=== PATIENT | male | born 1975 | race African-American/Black ===

== ENCOUNTER 2018-06-17 22:33 | Inpatient (IN) ==
[2018-06-17] MEDS ORDERED: Sod Chloride 0.9% Inj 1,000 ML IV.SIG SCH (23:30)
[2018-06-17] MEDS ORDERED: ceFAZolin 2 GM IV; once IV.SIG PRN (23:39)
--- NOTE | 2018-06-18 00:33 | P.HPIM ---
[facility]: Daniel Varner Chief Complaint: Here for kidney transplant History of Present Illness: Mr. Galvan is a pleasant 43 y/o male with a history of anemia, ESRD on peritoneal dialysis, Hepatitis C (treated), hyperlipidemia, and hypertension who presented to the hospital for renal transplantation. He was admitted under the hospitalist service for medical management prior to surgery. The patient is seen in his hospital room and denies any fevers, chills, shortness of breath , nausea, vomiting, diarrhea, or peripheral edema. The patient reports requiring peritoneal dialysis for 4 years. Inpatient Certification: I certify that the inpatient services were ordered in accordance with Medicare regulations governing the order. This includes certification that hospital inpatient services are reasonable and necessary and in the case of services not specified as inpatient-only under 42 CFR 419.22(n), that they are appropriately provided as inpatient services in accordance to with the 2-midnight benchmark under 43 CFR 412.3(e) Estimated Total Length of Stay (Days): 5 Plans for Post Hospital Care: Home Review of Systems All other systems reviewed negative except as stated in HPI PMFSH - History History Provided By: Patient - Medical History Medical History: Medical History (Last Updated 06/18/18 @ 01:01 by MARGRET Thomas) Dialysis patient High cholesterol History of hyperparathyroidism History of nephrectomy, unilateral Hypertension Anemia ESRD (end stage renal disease) on dialysis Hepatitis C - Surgical History Surgical History: Surgical History (Last Updated 06/18/18 @ 01:02 by MARGRET Thomas) History of nephrectomy, unilateral - Family History Family History: Family History (Last Reviewed 06/18/18 @ 01:02 by MARGRET Thomas) Mother Family history of diabetes mellitus Family history of hypertension Father Lung cancer Family history of diabetes mellitus Family history of hypertension CAD (coronary artery disease) Aunt Family history of diabetes mellitus - Social History I have reviewed the patient's Social History: Yes - Tobacco History Second Hand Smoke Exposure: No Smoking Status: Former smoker Packs Per Day: 1 (Quit 6 or 7 years ago) Years Smoked: 6 Smoking End Date: quit 5 years ago - Alcohol History How Often Do You Have a Drink Containing Alcohol: Monthly or less (rare) - Substance Use History Substance History: Past History (used marijuana in past. Quit about 5-6 years ago.) Medications and Allergies Active Medications: Active Medications Sodium Chloride (Ns Inj) 1,000 mls @ 40 mls/hr IV.SIG .Q24H JOSE L Cefuroxime Sodium 1,500 mg/ (Sodium Chloride) 100 mls @ 200 mls/hr IV.SIG GAUNTLET PAIRER PRN PRN Reason: WITHIN 60 MIN OF INCISION Stop: 06/18/18 23:36 Cefazolin Sodium/Dextrose (Ancef 2 Gm Premix Inj) 2 gm in 50 mls @ 100 mls/hr IV.SIG GAUNTLET PAIRER PRN PRN Reason: WITHIN 60 MIN OF INCISION Mycophenolate Mofetil (Cellcept) 1,000 mg PO UNSCH X1 JOSE L Stop: 06/18/18 03:00 Allergies Allergy/AdvReac Type Severity Reaction Status Date / Time No Known Allergies Allergy Unverified 05/28/18 13:35 Home Medications Medication Instructions Recorded Confirmed Type B complex-vitamin C-folic acid 1 tab PO DAILY 05/28/18 06/17/18 History [Dialyvite] amlodipine 10 mg PO DAILY 05/28/18 06/17/18 History cinacalcet [Sensipar] 120 mg PO DAILY 05/28/18 06/17/18 History labetalol 200 mg PO BID 05/28/18 06/17/18 History rosuvastatin [Crestor] 10 mg PO DAILY 05/28/18 06/17/18 History calcitriol 0.5 mcg PO DAILY 06/17/18 06/18/18 History Exam Vital signs: Vital Signs 06/17/18 23:44 Pulse Rate 79 Respiratory Rate 17 Blood Pressure 138/94 H Pulse Oximetry 100 Intake & Output 06/17/18 06/17/18 06/18/18 06:59 18:59 06:59 Weight 75.7 kg Other: Weight On Admission 75.7 kg Narrative: GENERAL: This is a well-nourished, well-developed patient, in no apparent distress. SKIN: No rashes, ecchymoses or lesions. Cool and dry. HEAD: Atraumatic. Normocephalic. EYES: No scleral icterus. No injection or drainage. ENT: Nose without bleeding, purulent drainage. NECK: Trachea midline. No JVD. CARDIOVASCULAR: Regular rate and rhythm without murmurs, gallops, or rubs. RESPIRATORY: Clear to auscultation. Breath sounds equal bilaterally. No wheezes , rales, or rhonchi. GASTROINTESTINAL: Abdomen soft, non-tender, nondistended. No guarding. Umbilical hernia reducible. Left lower quad PD catheter noted. MUSCULOSKELETAL: Extremities without clubbing, cyanosis, or edema. No calf tenderness. NEUROLOGICAL: Awake and alert. Motor and sensory grossly within normal limits. Normal speech. . Results - Labs CBC & Chem 7: 06/18/18 00:25 06/18/18 00:25 Caprini VTE Risk Assessment Caprini VTE Risk Assessment: Moderate/High Risk (score >= 2) Caprini Risk Assessment Model: Point Value = 1 Point Value = 2 Point Value = 3 Point Value = 5 Age 41-60 Minor surgery BMI > 25 kg/m2 Swollen legs Varicose veins or History of unexplained or recurrent spontaneous Oral contraceptives or hormone replacement Sepsis (< 1 month) Serious lung disease, including pneumonia (< 1 month) Abnormal pulmonary function Acute myocardial infarction Congestive heart failure (< 1 month) History of inflammatory bowel disease Medical patient at bed rest Age 61-74 Arthroscopic surgery Major open surgery (> 45 min) Laparoscopic surgery (> 45 min) Malignancy Confined to bed (> 72 hours) Immobilizing plaster cast Central venous access Age >= 75 History of VTE Family history of VTE Factor V Leiden Prothrombin [id number] Lupus anticoagulant Anticardiolipin antibodies Elevated serum homocysteine Heparin-induced thrombocytopenia Other congenital or acquired thrombophilia Stroke (< 1 month) Elective arthroplasty Hip, pelvis, or leg fracture Acute spinal cord injury (< 1 month) Prophylaxis Regimen: Total Risk Factor Score Risk Level Prophylaxis Regimen 0-1 Low Early ambulation 2 Moderate Order ONE of the following: *Sequential Compression Device (SCD) *Heparin 5000 units SQ BID 3-4 Higher Order ONE of the following medications: *Heparin 5000 units SQ TID *Enoxaparin/Lovenox 40 mg SQ daily (WT < 150 kg, CrCl > 30 mL/min) *Enoxaparin/Lovenox 30 mg SQ daily (WT < 150 kg, CrCl > 10-29 mL/min) *Enoxaparin/Lovenox 30 mg SQ BID (WT < 150 kg, CrCl > 30 mL/min) AND/OR *Sequential Compression Device (SCD) 5 or more Highest Order ONE of the following medications: *Heparin 5000 units SQ TID (Preferred with Epidurals) *Enoxaparin/Lovenox 40 mg SQ daily (WT < 150 kg, CrCl > 30 mL/min) *Enoxaparin/Lovenox 30 mg SQ daily (WT < 150 kg, CrCl > 10-29 mL/min) *Enoxaparin/Lovenox 30 mg SQ BID (WT < 150 kg, CrCl > 30 mL/min) AND *Sequential Compression Device (SCD) Assessment and Plan - Plan Mr. Galvan is a pleasant 43 y/o male with a history of anemia, ESRD on peritoneal dialysis, Hepatitis C (treated), hyperlipidemia, and hypertension who presented to the hospital for renal transplantation. He was admitted under the hospitalist service for medical management prior to surgery. ESRD here for renal transplant -Consult nephrology - Dr. Gan -Consult renal transplant team - Dr. Kumar -N.p.o. -Preop antibiotics Hypertension -Restart home amlodipine -Monitor trends in blood pressure and adjust treatment as indicated Hyperlipidemia -Resume home atorvastatin Anemia -monitor CBC DVT prophylaxis -SCDs Discussed Condition With: Dr Ruelas, patient, and RN
[2018-06-18 00:45] LABS: Baso % (Auto) 0.6 % (0.0-2.0); Eos # (Auto) 0.1 th/mm3 (0.0-0.4); Eos % (Auto) 2.1 % (0.0-4.0); Hematocrit 28.3 % (39.0-51.0); Hemoglobin 9.9 gm/dL (13.0-17.0); Lymph # (Auto) 2.6 th/mm3 (1.0-4.8); Mean Corpuscular HGB Conc 34.9 % (32.0-36.0); Mean Corpuscular Hemoglobin 31.1 pg (27.0-34.0); Mean Corpuscular Volume 89.1 fL (80.0-100.0); Mean Platelet Volume 8.2 fL (7.0-11.0); Mono # (Auto) 0.7 th/mm3 (0.0-0.9); Mono % (Auto) 9.5 % (0.0-8.0); Neut # (Auto) 3.5 th/mm3 (1.8-7.7); Neut % (Auto) 50.8 % (16.0-70.0); Platelet Count 229 th/mm3 (150-450); Red Blood Count 3.18 mil/mm3 (4.50-5.90); Red Cell Distribution Width 16.2 % (11.6-17.2); White Blood Count 6.9 th/mm3 (4.0-11.0)
[2018-06-18 00:57] LABS: Activated Partial Thrombo Time 25.1 sec (24.3-30.1); Prothrombin Time 10.3 sec (9.8-11.6)
[2018-06-18 01:05] LABS: Alanine Aminotransferase 25 U/L (12-78); Albumin 3.4 g/dL (3.4-5.0); Anion Gap 12 meq/L (5-15); Aspartate Aminotransferase 23 U/L (15-37); Blood Urea Nitrogen 51 mg/dL (7-18); Calcium 8.6 mg/dL (8.5-10.1); Carbon Dioxide 30.2 meq/L (21.0-32.0); Chloride 97 meq/L (98-107); Glucose,Random 84 mg/dL (74-106); Potassium 3.8 meq/L (3.5-5.1); Sodium 139 meq/L (136-145)
[2018-06-18 01:12] LABS: Alkaline Phosphatase 52 U/L (45-117); Glomerular Filtration Rate 3 mL/min (>89); Total Protein 6.5 g/dL (6.4-8.2)
--- NOTE | 2018-06-18 01:21 | XR ---
EXAM DATE: 06/18/2018 1:02 AM EDT AGE/SEX: 43 years / Male INDICATIONS: Evaluate for pneumonia, pneumothorax, or communicable disease. Pre-op Kidney transplant . CLINICAL DATA: This is the patient's initial encounter. Patient reports that signs and symptoms have been present for 1 day and indicates a pain score of 0/10. MEDICAL/SURGICAL HISTORY: None. None. COMPARISON: No prior exams available for comparison. FINDINGS: PA and lateral views of the chest demonstrate the lungs to be symmetrically aerated without evidence of mass, infiltrate or effusion. The cardiomediastinal contours are unremarkable. Osseous structures are intact. CONCLUSION: No evidence of acute cardiopulmonary disease. Electronically signed by: Jung Fletcher MD 06/18/2018 1:20 AM EDT
[2018-06-18] MEDS ORDERED: ANTITHYMOCYTE IG IV.SIG ONE ×2 (08:59→12:00)
[2018-06-18] MEDS ORDERED: SODIUM CHLOR 0.9% IV.SIG ONE ×2 (08:59→12:00)
[2018-06-18] MEDS ORDERED: MethylPREDNISolone Sod Succinate Inj 125 MG/2 ML Vial IV.PUSH ONE ×2 (08:59→12:00)
[2018-06-18] MEDS ORDERED: Hydrocortisone Sod Succinate 100 MG Vial IV.PUSH PRN ×2 (08:59→09:10)
--- NOTE | 2018-06-18 09:32 | P.CONTS ---
History of Present Illness Service: Transplant Surgery Consult date: 06/18/18 Reason for Consult: patient admitted for potential donor kidney transplant Primary Care Provider: Daniel Varner Chief Complaint: Here for possible kidney transplant History of Present Illness: Mr Quinton Galvan is a 43 yo black male with the primary diagnosis of htn. s/p right nephrectomy for renal cell cancer. Patient of Dr Christianson. who completed a kidney transplant evaluation and was approved by our Kidney Listing Committee. A possible kidney donor has been found for him. Mr Galvan, does PD required dialysis support since 07/27/13 last dialysis was . And the time of admission, patient makes {no urine for the last 2 years. In the recent days he denies any fevers, recent hospitalizations, and any significant change in his health since he was last seen in our [facility]. Review of Systems Constitutional: Denies anorexia, Denies body ache(s), Denies chills, Denies daytime sleepiness, Denies excessive sweating, Denies fatigue, Denies fever(s), Denies headache(s), Denies increased appetite, Denies lack of energy, Denies malaise, Denies night sweats, Denies weakness, Denies weight gain, Denies weight loss, Denies other Eyes: Denies blind spots, Denies blurry vision, Denies bulging eyes, Denies change in vision, Denies double vision, Denies discharge, Denies dry eyes, Denies floaters, Denies irritation, Denies itchy eyes, Denies loss of vision, Denies pain, Denies requires corrective lenses, Denies sensitivity to light, Denies other Ears, Nose, Mouth, and Throat: Denies abnormal hearing, Denies bleeding gums, Denies bad breath, Denies change in voice, Denies dental pain, Denies difficulty swallowing, Denies dizziness, Denies dry mouth, Denies ear discharge , Denies ear pain, Denies facial pain, Denies headache(s), Denies hearing loss, Denies hoarseness, Denies lip swelling, Denies nosebleed, Denies mouth lesions, Denies mouth pain, Denies nasal congestion, Denies nasal discharge, Denies nasal obstruction, Denies nasal trauma, Denies neck lump, Denies neck pain, Denies nose pain, Denies pain with swallowing, Denies poor balance, Denies post nasal drip, Denies ringing in the ears, Denies sinus pain, Denies sinus pressure , Denies sore throat, Denies throat swelling, Denies tongue swelling, Denies other Cardiovascular: Denies chest pain, Denies chest pain at rest, Denies chest pain with activity, Denies excessive sweating, Denies fainting, Denies fast heart rate, Denies foot swelling, Denies generalized swelling, Denies irregular heart rhythm, Denies leg pain with activity, Denies leg sores, Denies leg swelling, Denies lightheadedness, Denies radiating jaw, neck or arm pain, Denies rapid, pounding, or irregular heartbeat, Denies shortness of breath, Denies shortness of breath with activity, Denies shortness of breath when lying down, Denies shortness of breath causing sudden awakening, Denies slow heart rate, Denies other Respiratory: Denies change in phlegm color, Denies chest congestion, Denies cough, Denies coughing up blood, Denies excessive phlegm production, Denies pain on inspiration, Denies pain with cough, Denies shortness of breath, Denies shortness of breath with activity, Denies snoring, Denies stridor, Denies wheezing, Denies other Gastrointestinal: Denies abdominal pain, Denies belching, Denies black, tarry stools, Denies bloating, Denies bright, red blood in stools, Denies change in bowel habits, Denies constant urge to pass stool, Denies change in stools, Denies coffee ground vomit, Denies constipation, Denies cramping, Denies difficulty swallowing, Denies excessive passing of gas, Denies feeling full early, Denies heartburn, Denies incontinent of stools, Denies loose stools, Denies nausea, Denies pain with swallowing, Denies vomiting, Denies vomiting blood, Denies other Genitourinary: Denies blood in semen, Denies blood in urine, Denies decreased urination, Denies difficulty urinating, Denies difficulty with ejaculations, Denies erectile dysfunction, Denies genital lesions, Denies genital pain, Denies painful urination, Denies side pain, Denies frequent nighttime urination , Denies painful ejaculations, Denies penile discharge, Denies scrotal swelling , Denies testicle lump, Denies testicle pain, Denies urinary frequency, Denies urinary hesitancy, Denies urinary incontinence, Denies urinary urgency, Denies other Musculoskeletal: Denies abnormal walking, Denies back pain, Denies body aches, Denies decreased muscle mass, Denies deformity, Denies joint pain, Denies joint swelling, Denies limited joint movement, Denies loss of height, Denies muscle cramps, Denies muscle weakness, Denies neck pain, Denies numbness, Denies radiating pain into limb, Denies stiffness, Denies tingling, Denies other Skin/Breast: Denies acne, Denies bleeding lesions, Denies boil, Denies breast swelling, Denies breast skin changes, Denies breast pain, Denies breast lump, Denies change in breast shape, Denies change in hair, Denies change in skin color, Denies changing lesions, Denies dry skin, Denies excessive hair growth, Denies hair loss, Denies itching, Denies lesions, Denies nail changes, Denies new lesions, Denies nipple discharge, Denies non-healing lesions, Denies redness , Denies sensitivity to light, Denies rash, Denies skin pain, Denies skin ulcer , Denies sores, Denies stretch gillette, Denies unusual bruising, Denies wounds, Denies yellowing of the skin, Denies other Neurologic: Denies abnormal hearing, Denies abnormal movements, Denies abnormal speech, Denies abnormal walking, Denies behavioral changes, Denies burning sensations, Denies confusion, Denies dizziness, Denies fainting, Denies frequent falls, Denies headache(s), Denies lack of coordination, Denies localized weakness, Denies loss of vision, Denies memory loss, Denies numbness, Denies other visual disturbances, Denies radiating pain, Denies restless legs, Denies convulsions, Denies seizure-like activity, Denies sensory deficit, Denies tingling, Denies tingling/numbness/burning sensations, Denies tremor(s), Denies unsteadiness, Denies weakness, Denies other Psychiatric: Denies abnormal sleep pattern, Denies anxiety, Denies behavioral changes, Denies change in appetite, Denies change in sex drive, Denies confusion , Denies depression, Denies difficulty concentrating, Denies hearing things others do not hear, Denies hopelessness, Denies irritability, Denies lack of enjoyment, Denies memory loss, Denies mood swings, Denies panic attacks, Denies paranoia, Denies seeing things others do not see, Denies sensing things others do not sense, Denies tactile hallucinations, Denies thoughts of hurting/killing others, Denies thoughts of hurting/killing yourself, Denies other Endocrine: Denies cold intolerance, Denies excessive sweating, Denies flushing, Denies heat intolerance, Denies increased hunger, Denies increased thirst, Denies increased urination, Denies rapid, pounding, or irregular heartbeat, Denies other Hematologic/Lymphatic: Denies easy bleeding, Denies easy bruising, Denies enlarged lymph nodes, Denies other Allergic/Immunologic: Denies GI upset with certain foods, Denies hives, Denies itchy eyes, Denies lip swelling, Denies seasonal runny nose, Denies throat swelling, Denies tongue swelling, Denies wheezing, Denies other PMFSH - History History Provided By: Patient - Medical History Medical History: Medical History (Last Reviewed 06/18/18 @ 09:22 by Vincent Kumar MD) Dialysis patient High cholesterol History of hyperparathyroidism Hypertension Anemia ESRD (end stage renal disease) on dialysis Hepatitis C - Surgical History Surgical History: Surgical History (Last Reviewed 06/18/18 @ 09:22 by Vincent Kumar MD) History of nephrectomy, unilateral - Family History Family History: Family History (Last Reviewed 06/18/18 @ 09:22 by Vincent Kumar MD) Mother Family history of diabetes mellitus Family history of hypertension Father Lung cancer Family history of diabetes mellitus Family history of hypertension CAD (coronary artery disease) Aunt Family history of diabetes mellitus - Tobacco History Second Hand Smoke Exposure: No Smoking Status: Former smoker Packs Per Day: 1 (Quit 6 or 7 years ago) Years Smoked: 6 Smoking End Date: quit 5 years ago - Alcohol History How Often Do You Have a Drink Containing Alcohol: Monthly or less (rare) - Substance Use History Substance History: Past History (used marijuana in past. Quit about 5-6 years ago.) - Travel History History of Recent Travel: No Recent Travel in the [place] Within the Last 8 Weeks: No Recent Travel Out of the Country Within the Last 8 Weeks: No Medications and Allergies Active Medications: Active Medications Amlodipine Besylate (Norvasc) 10 mg PO DAILY [facility] Atorvastatin Calcium (Lipitor) 20 mg PO DAILY JOSE L Calcitriol (Rocaltrol) 0.5 mcg PO DAILY JOSE L Cinacalcet (Sensipar) 120 mg PO DAILY JOSE L Diphenhydramine HCl (Benadryl Inj) 50 mg IV.PUSH ONCE PRN PRN Reason: anaphylactic reaction Epinephrine HCl (Epinephrine (1:1000) Inj) 0.1 mg IV.PUSH ONCE PRN PRN Reason: SEE LABEL COMMENTS Hydrocortisone Sodium Succinate (Solucortef Inj) 200 mg IV.PUSH ONCE PRN PRN Reason: anaphylactic readtion Sodium Chloride (Ns Inj) 1,000 mls @ 40 mls/hr IV.SIG .Q24H JOSE L Cefazolin Sodium/Dextrose (Ancef 2 Gm Premix Inj) 2 gm in 50 mls @ 100 mls/hr IV.SIG MANGLE TENDER CLOTH PRN PRN Reason: WITHIN 60 MIN OF INCISION Lymphocyte Immune Globulin 114 (mg/ Sodium Chloride) 500 mls @ 83.333 mls/hr IV.SIG ONCE ONE Stop: 06/18/18 17:59 Labetalol HCl (Trandate) 200 mg PO BID JOSE L Methylprednisolone Sodium Succinate (Solumedrol Inj) 500 mg IV.PUSH ONCE ONE Stop: 06/18/18 12:01 Vitamin B Complex/Vit C/Folic Acid (Nephrocaps) 1 tab PO DAILY [facility] Allergies Allergy/AdvReac Type Severity Reaction Status Date / Time No Known Allergies Allergy Unverified 05/28/18 13:35 Home Medications Medication Instructions Recorded Confirmed Type B complex-vitamin C-folic acid 1 tab PO DAILY 05/28/18 06/17/18 History [Dialyvite] amlodipine 10 mg PO DAILY 05/28/18 06/17/18 History cinacalcet [Sensipar] 120 mg PO DAILY 05/28/18 06/17/18 History labetalol 200 mg PO BID 05/28/18 06/17/18 History rosuvastatin [Crestor] 10 mg PO DAILY 05/28/18 06/17/18 History calcitriol 0.5 mcg PO DAILY 06/17/18 06/18/18 History Physical Exam Vital signs: Vital Signs 06/17/18 23:44 06/18/18 02:00 06/18/18 04:00 Temperature Pulse Rate 79 77 75 Respiratory Rate 17 Blood Pressure 138/94 H Pulse Oximetry 100 06/18/18 08:00 Temperature 98 F Pulse Rate 77 Respiratory Rate 18 Blood Pressure 113/92 H Pulse Oximetry 100 Intake & Output 06/17/18 06/18/18 06/18/18 18:59 06:59 18:59 Weight 75.7 kg Other: Weight On Admission 75.7 kg - Constitutional no acute distress - Routine HEENT Exam Head: Present: normocephalic, atraumatic Eye: Present: EOMI ENT: Present: mucous membranes moist - Routine Neck Exam Present: supple - Routine Respiratory Exam Present: CTA bilaterally - Routine Cardiovascular Exam Present: RRR, S1, S2 - Routine Abdominal Exam Present: soft, normoactive bowel sounds Comments: LLQ PD cath in place. Approx 1.5 x [address] in place. - Routine Extremities Exam Present: pulses intact - Routine Skin Exam Present: intact - Routine Neurological Exam Present: alert, oriented X3 - Detailed Neurological Exam: Coma Scale Verbal Response: Oriented - Routine Psychiatric Exam Present: normal affect, normal thought process Assessment and Plan - Assessment (1) End stage renal disease Code(s): N18.6 - End stage renal disease Status: Acute (2) Hypertension Code(s): I10 - Essential (primary) hypertension Status: Acute - Plan Mr Quinton Galvan has ESRD secondary to htn and is being admitted for possible kidney transplantation. The patient will be consented for procedure and transfusion A PHS increased Risk Consent is not required. The patient is being admitted to the Hospitalists Service. The Transplant Nephrology Service will be consulted. The patient will be assigned to Case Management/Inpatient Status.
[2018-06-18] MEDS ORDERED: Heparin 10,000 UNITS/10 ML Vial (for IV use) ONE (10:00)
[2018-06-18] MEDS ORDERED: Cisatracurium Inj 20 MG/10 ML Vial ONE (10:17)
[2018-06-18] MEDS ORDERED: MethylPREDNISolone Sod Succinate Inj 125 MG/2 ML Vial ONE (10:59)
--- NOTE | 2018-06-18 11:10 | P.CONNP ---
History of Present Illness Service: Nephrology Consult date: 06/18/18 Requesting Physician: Vincent Kumar Reason for Consult: End-stage renal disease Primary Care Provider: Daniel Varner Chief Complaint: Here for possible kidney transplant History of Present Illness: Patient is a 43-year-old -Togolese male with history of end-stage renal disease on peritoneal dialysis who has been placed on the waiting list for kidney transplant, patient is doing peritoneal dialysis and has done peritoneal dialysis on 06/16/2018, he was calling last night and came here for kidney transplant of, patient does not make any urine has been anuric for 2 years, he does not have any recent hospitalizations or infections. Review of Systems Constitutional: Denies anorexia, Denies body ache(s), Denies chills, Denies daytime sleepiness, Denies excessive sweating, Denies fatigue, Denies fever(s), Denies headache(s), Denies increased appetite, Denies lack of energy, Denies malaise, Denies night sweats, Denies weakness, Denies weight gain, Denies weight loss, Denies other Eyes: Denies blind spots, Denies blurry vision, Denies bulging eyes, Denies change in vision, Denies double vision, Denies discharge, Denies dry eyes, Denies floaters, Denies irritation, Denies itchy eyes, Denies loss of vision, Denies pain, Denies requires corrective lenses, Denies sensitivity to light, Denies other Ears, Nose, Mouth, and Throat: Denies abnormal hearing, Denies bleeding gums, Denies bad breath, Denies change in voice, Denies dental pain, Denies difficulty swallowing, Denies dizziness, Denies dry mouth, Denies ear discharge , Denies ear pain, Denies facial pain, Denies headache(s), Denies hearing loss, Denies hoarseness, Denies lip swelling, Denies nosebleed, Denies mouth lesions, Denies mouth pain, Denies nasal congestion, Denies nasal discharge, Denies nasal obstruction, Denies nasal trauma, Denies neck lump, Denies neck pain, Denies nose pain, Denies pain with swallowing, Denies poor balance, Denies post nasal drip, Denies ringing in the ears, Denies sinus pain, Denies sinus pressure , Denies sore throat, Denies throat swelling, Denies tongue swelling, Denies other Cardiovascular: Denies chest pain, Denies chest pain at rest, Denies chest pain with activity, Denies excessive sweating, Denies fainting, Denies fast heart rate, Denies foot swelling, Denies generalized swelling, Denies irregular heart rhythm, Denies leg pain with activity, Denies leg sores, Denies leg swelling, Denies lightheadedness, Denies radiating jaw, neck or arm pain, Denies rapid, pounding, or irregular heartbeat, Denies shortness of breath, Denies shortness of breath with activity, Denies shortness of breath when lying down, Denies shortness of breath causing sudden awakening, Denies slow heart rate, Denies other Respiratory: Denies change in phlegm color, Denies chest congestion, Denies cough, Denies coughing up blood, Denies excessive phlegm production, Denies pain on inspiration, Denies pain with cough, Denies shortness of breath, Denies shortness of breath with activity, Denies snoring, Denies stridor, Denies wheezing, Denies other Gastrointestinal: Denies abdominal pain, Denies belching, Denies black, tarry stools, Denies bloating, Denies bright, red blood in stools, Denies change in bowel habits, Denies constant urge to pass stool, Denies change in stools, Denies coffee ground vomit, Denies constipation, Denies cramping, Denies difficulty swallowing, Denies excessive passing of gas, Denies feeling full early, Denies heartburn, Denies incontinent of stools, Denies loose stools, Denies nausea, Denies pain with swallowing, Denies vomiting, Denies vomiting blood, Denies other Genitourinary: Reports other (Anuric), Denies blood in semen, Denies blood in urine, Denies decreased urination, Denies difficulty urinating, Denies difficulty with ejaculations, Denies erectile dysfunction, Denies genital lesions, Denies genital pain, Denies painful urination, Denies side pain, Denies frequent nighttime urination, Denies painful ejaculations, Denies penile discharge, Denies scrotal swelling, Denies testicle lump, Denies testicle pain, Denies urinary frequency, Denies urinary hesitancy, Denies urinary incontinence , Denies urinary urgency Musculoskeletal: Denies abnormal walking, Denies back pain, Denies body aches, Denies decreased muscle mass, Denies deformity, Denies joint pain, Denies joint swelling, Denies limited joint movement, Denies loss of height, Denies muscle cramps, Denies muscle weakness, Denies neck pain, Denies numbness, Denies radiating pain into limb, Denies stiffness, Denies tingling, Denies other Skin/Breast: Denies acne, Denies bleeding lesions, Denies boil, Denies breast swelling, Denies breast skin changes, Denies breast pain, Denies breast lump, Denies change in breast shape, Denies change in hair, Denies change in skin color, Denies changing lesions, Denies dry skin, Denies excessive hair growth, Denies hair loss, Denies itching, Denies lesions, Denies nail changes, Denies new lesions, Denies nipple discharge, Denies non-healing lesions, Denies redness , Denies sensitivity to light, Denies rash, Denies skin pain, Denies skin ulcer , Denies sores, Denies stretch gillette, Denies unusual bruising, Denies wounds, Denies yellowing of the skin, Denies other PMFSH - History History Provided By: Patient - Medical History Medical History: Medical History (Last Reviewed 06/18/18 @ 11:08 by Richmond Gan MD) Dialysis patient High cholesterol History of hyperparathyroidism Hypertension Anemia ESRD (end stage renal disease) on dialysis Hepatitis C - Surgical History Surgical History: Surgical History (Last Reviewed 06/18/18 @ 11:08 by Richmond Gan MD) History of nephrectomy, unilateral - Family History Family History: Family History (Last Reviewed 06/18/18 @ 11:08 by Richmond Gan MD) Mother Family history of diabetes mellitus Family history of hypertension Father Lung cancer Family history of diabetes mellitus Family history of hypertension CAD (coronary artery disease) Aunt Family history of diabetes mellitus - Social History I have reviewed the patient's Social History: Yes - Tobacco History Second Hand Smoke Exposure: No Smoking Status: Former smoker Packs Per Day: 1 (Quit 6 or 7 years ago) Years Smoked: 6 Smoking End Date: quit 5 years ago - Alcohol History How Often Do You Have a Drink Containing Alcohol: Monthly or less (rare) - Substance Use History Substance History: Past History (used marijuana in past. Quit about 5-6 years ago.) - Travel History History of Recent Travel: No Recent Travel in the [place] Within the Last 8 Weeks: No Recent Travel Out of the Country Within the Last 8 Weeks: No Medications and Allergies Active Medications: Active Medications Amlodipine Besylate (Norvasc) 10 mg PO DAILY [facility] Atorvastatin Calcium (Lipitor) 20 mg PO DAILY [facility] Calcitriol (Rocaltrol) 0.5 mcg PO DAILY [facility] Cinacalcet (Sensipar) 120 mg PO DAILY [facility] Diphenhydramine HCl (Benadryl Inj) 50 mg IV.PUSH ONCE PRN PRN Reason: anaphylactic reaction Epinephrine HCl (Epinephrine (1:1000) Inj) 0.1 mg IV.PUSH ONCE PRN PRN Reason: SEE LABEL COMMENTS Hydrocortisone Sodium Succinate (Solucortef Inj) 200 mg IV.PUSH ONCE PRN PRN Reason: anaphylactic reaction Sodium Chloride (Ns Inj) 1,000 mls @ 40 mls/hr IV.SIG .Q24H [facility] Cefazolin Sodium/Dextrose (Ancef 2 Gm Premix Inj) 2 gm in 50 mls @ 100 mls/hr IV.SIG [employer] PRN PRN Reason: WITHIN 60 MIN OF INCISION Stop: 06/21/18 23:38 Lymphocyte Immune Globulin 114 (mg/ Sodium Chloride) 500 mls @ 83.333 mls/hr IV.SIG ONCE ONE Stop: 06/18/18 17:59 Methylprednisolone Sodium Succinate 500 mg/ Sodium Chloride 108 mls @ 100 mls/ hr IV.SIG ONCE ONE Stop: 06/18/18 13:04 Labetalol HCl (Trandate) 200 mg PO BID [facility] Vitamin B Complex/Vit C/Folic Acid (Nephrocaps) 1 tab PO DAILY [facility] Allergies Allergy/AdvReac Type Severity Reaction Status Date / Time No Known Allergies Allergy Unverified 05/28/18 13:35 Home Medications Medication Instructions Recorded Confirmed Type B complex-vitamin C-folic acid 1 tab PO DAILY 05/28/18 06/17/18 History [Dialyvite] amlodipine 10 mg PO DAILY 05/28/18 06/17/18 History cinacalcet [Sensipar] 120 mg PO DAILY 05/28/18 06/17/18 History labetalol 200 mg PO BID 05/28/18 06/17/18 History rosuvastatin [Crestor] 10 mg PO DAILY 05/28/18 06/17/18 History calcitriol 0.5 mcg PO DAILY 06/17/18 06/18/18 History Exam Vital signs: Vital Signs 06/17/18 23:44 06/18/18 02:00 06/18/18 04:00 Temperature Pulse Rate 79 77 75 Respiratory Rate 17 Blood Pressure 138/94 H Pulse Oximetry 100 06/18/18 08:00 Temperature 98 F Pulse Rate 77 Respiratory Rate 18 Blood Pressure 113/92 H Pulse Oximetry 100 Intake & Output 06/17/18 06/18/18 06/18/18 18:59 06:59 18:59 Weight 75.7 kg Other: Weight On Admission 75.7 kg Narrative: GENERAL: Well-nourished, well-developed patient. SKIN: Warm and dry. HEAD: Normocephalic. EYES: No scleral icterus. No injection or drainage. NECK: Supple, trachea midline. No JVD or lymphadenopathy. CARDIOVASCULAR: Regular rate and rhythm without murmurs, gallops, or rubs. RESPIRATORY: Breath sounds equal bilaterally. No accessory muscle use. GASTROINTESTINAL: Abdomen soft, non-tender, nondistended. PD catheter in place. EXTREMITIES: No edema NEUROLOGICAL: Awake, alert, and oriented x 3. Non-focal. Results - Lab Results 06/18/18 00:25 06/18/18 00:25 Most recent lab results Calcium 8.6 mg/dL (8.5-10.1) 06/18/18 00:25 Assessment and Plan - Assessment (1) End stage renal disease Code(s): N18.6 - End stage renal disease Status: Acute (2) Hypertension Code(s): I10 - Essential (primary) hypertension Status: Acute - Plan Patient has been admitted for kidney transplant offer, he is going to go to OR and getting prepared We receive immunosuppressive medication Potassium is normal Fluid status check x-ray do not show signs of any volume overload We will continue to monitor his progress after the kidney transplant Discussed with Dr. Kumar and Dr. Christianson
--- NOTE | 2018-06-18 11:55 | P.PNIM ---
Subjective Interval history: Patient is lying down comfortably in the PACU unit. He is looking forward to the renal transplant today. He does not have any other complaints. Physical Exam Vital signs: Vital Signs 06/17/18 23:44 06/18/18 02:00 06/18/18 04:00 Temperature Pulse Rate 79 77 75 Respiratory Rate 17 Blood Pressure 138/94 H Pulse Oximetry 100 06/18/18 08:00 Temperature 98 F Pulse Rate 77 Respiratory Rate 18 Blood Pressure 113/92 H Pulse Oximetry 100 Intake & Output 06/17/18 06/18/18 06/18/18 18:59 06:59 18:59 Weight 75.7 kg Other: Weight On Admission 75.7 kg Narrative: General patient in no acute distress HEENT extraocular movements are intact, clear oropharyngeal mucosa, no JVD Cardiovascular S1-S2 audible, RRR, no murmurs rubs or gallops Respiratory clear to auscultation bilaterally Abdomen soft, nontender, nondistended, normal bowel sounds Extremities no edema Neuro cranial nerves II through XII intact Results - Labs CBC & Chem 7: 06/18/18 00:25 06/18/18 00:25 Laboratory Results - last 24 hr 06/18/18 06/18/18 06/18/18 00:25 00:25 00:25 WBC 6.9 RBC 3.18 L Hgb 9.9 L Hct 28.3 L MCV 89.1 MCH 31.1 MCHC 34.9 RDW 16.2 Plt Count 229 MPV 8.2 Neut % (Auto) 50.8 Lymph % (Auto) 37.0 [place] % (Auto) 9.5 H Eos % (Auto) 2.1 Baso % (Auto) 0.6 Neut # (Auto) 3.5 Lymph # (Auto) 2.6 [place] # (Auto) 0.7 Eos # (Auto) 0.1 Baso # (Auto) 0.0 WBC Differential . Differential Comment Auto diff final PT 10.3 INR 1.0 APTT 25.1 Sodium 139 Potassium 3.8 Chloride 97 L Carbon Dioxide 30.2 Anion Gap 12 BUN 51 H Creatinine 20.47 H* Estimated GFR 3 L Random Glucose 84 Calcium 8.6 Total Bilirubin 0.4 AST 23 ALT 25 Alkaline Phosphatase 52 Total Protein 6.5 Albumin 3.4 Blood Type Blood Type Recheck Antibody Screen MTS Gel Crossmatch 06/18/18 00:25 WBC RBC Hgb Hct MCV MCH MCHC RDW Plt Count MPV Neut % (Auto) Lymph % (Auto) [place] % (Auto) Eos % (Auto) Baso % (Auto) Neut # (Auto) Lymph # (Auto) [place] # (Auto) Eos # (Auto) Baso # (Auto) WBC Differential Differential Comment PT INR APTT Sodium Potassium Chloride Carbon Dioxide Anion Gap BUN Creatinine Estimated GFR Random Glucose Calcium Total Bilirubin AST ALT Alkaline Phosphatase Total Protein Albumin Blood Type O Positive Blood Type Recheck Not needed Antibody Screen Negative MTS Gel Crossmatch See Detail - Imaging Impressions Chest X-Ray 06/18/18 00:58 CONCLUSION: No evidence of acute cardiopulmonary disease. Assessment and Plan - Plan This patient is a 43-year-old male with a diagnosis of right- sided renal cell carcinoma status post nephrectomy, end-stage renal disease on hemodialysis, hepatitis C, dyslipidemia, hypertension. The patient presented to our facility for a renal transplantation. He was admitted under the hospitalist service for medical management prior to undergoing kidney transplant. 1. End-stage renal disease on hemodialysis, admitted for renal transplant. Patient was evaluated by Dr. Gan from nephrology as well as Dr. Kumar from the renal transplant team. Patient says that he feels fine this morning and is looking forward to the renal transplant surgery. He was evaluated by me in PACU and is prepping for surgery. Patient is currently n.p.o. Patient appears to be euvolemic chest x-ray appears clear. He will undergo the kidney transplant today. 2. Hypertension Patient currently on amlodipine. Blood pressures under control. His blood pressure medications will be adjusted if needed. 3. Dyslipidemia Continue statin 4. Anemia Likely from end-stage renal disease. Continue plan as stated above. SCDs for DVT prophylaxis. The patient will undergo kidney transplant today.
[2018-06-18] MEDS ORDERED: fentaNYL Citrate Inj 250 MCG/5 ML Ampul ONE (11:59)
[2018-06-18] MEDS ORDERED: MethylPREDNISolone Sod Suc Inj 500 MG in Sodium Chlor 0.9% Inj 100 ML IV.SIG ONE (12:00)
--- NOTE | 2018-06-18 14:34 | ECG ---
Date Performed: 06/18/2018 Time Performed: 04:28:02 PTAGE: 43 years EKG: Sinus rhythm Normal ECG NO PREVIOUS TRACING DOCTOR: Jeyson Dumont Interpretating Date/Time 06/18/2018 14:28:20
[2018-06-18] MEDS ORDERED: Naloxone Inj 0.4 MG/ML Vial IV.PUSH PRN ×3 (14:44→19:20)
[2018-06-18] MEDS ORDERED: Dextrose 50% in Water 50 ML Vial IV.PUSH PRN (14:44)
--- NOTE | 2018-06-18 15:27 | P.OP ---
- Preoperative Diagnosis (1) End stage renal disease (2) Hypertension - Postoperative Diagnosis (1) End stage renal disease Date of procedure: 06/18/18 Procedure: Left donor kidney transplant to right iliac fossa Implants: 6 x 16 double J ureteral stent in transplant ureter Anesthesia: ARIANNE Surgeon: Vincent Kumar MD Planer Setup Operator: Giorgio Hyatt Estimated blood loss (mL): 100 IV fluids (mL): 2,000 Urine output (mL): 0 Pathology: none sent Operation and Findings: Cold ischemic time: 5 hours 37 min Warm ischemic time: 23 min Informed consent was obtained from the patient prior to surgery and the ABO was reviewed via primary source for the recipient and donor prior to surgery today. Recipient was brought into the OR and safely placed under general endotracheal anesthesia after the debriefing was performed. The ABO verification form was in the room with the patient and the renal allograft. The [employer] file was checked and the donor ABO verified X 2 and recorded onto the ABO form with the Candidate ABO verified X 2 and recorded on the ABO verification form. The candidate's name was seen on the match run in [employer]. As the anesthesia service was preparing the patient, Dr Giorgio Hyatt prepared the renal allograft on the back table by removing all extraneous connective tissue. There was a single artery, vein and ureter of sufficient length. This was a left kidney. Please see Dr Hyatt's dictation re the backtable preparation, for more detail. The kidney was stored in sterile ice with preservative solution and replaced in sterile container with top and in a sterile bowel bag. The patient had a Moore catheter placed sterilely, and the abdomen was prepped and draped in the usual sterile fashion. We then did our standard surgical time out, reviewing the patient, allergies, antibiotics, operation to be performed, immunosuppression medications and ABO of the donor and recipient. All agreed and we proceeded. The anesthesia service acknowledged the administration of the IV Solumedrol 250 mg and Thymoglobulin infusion. We then made a right quadrant oblique incision from an area about two centimeters medial to the anterior iliac spine to the pubic symphysis. We were able to go through the skin, subcutaneous tissue, fascia, and into the right retroperitoneal space. We kept the cord structures mobilized out of harm's way. We spared the epigastric vessels. We had excellent exposure of the common and external iliac artery and vein. The artery had no significant atherosclerosis to palpation, throughout its entire length from the distal aorta to the distal external iliac. The vein was normal to visual inspection.. We gave the patient 2,000 units of intravenous heparin, and allowed this to circulate for three minutes. We then used a Satinsky clamp on the iliac vein and opened the vein with the 11-blade, Hinojosa scissors, and Hepflush. We anastomosed the donor renal vein to the recipient right external iliac vein using 5-0 Prolene in our standard technique. When this venous anastomosis was completed, we went ahead and placed a Satinsky vascular clamp on the right external iliac artery, opened into the iliac artery with the 11-blade. The incison was lengthened with a Hinojosa Scissor, so we had a nice opening of the anterior artery wall to accept the renal artery. Then we used 6-0 Prolene, placing a cephalad and caudad stitch, and then we were able to anastomose the arteries under direct visualization. When the arterial anastomosis was complete and tied, we went ahead and placed gentle vascular bull-dog clamps on the renal artery and renal vein proper, where we removed first the iliac vein clamps and allowed for flow across the venous anastomosis, with excellent hemostasis. We then allowed for the distal artery to open. The anastomotic area opened nicely, signifying no technical issues. We then allowed for forward flow from the artery down the leg. There was excellent flow, again with no need for any suture repair across the anastomosis. We then removed the clamps from the renal artery and vein proper, allowing for flow into and out of the kidney, placed warm irrigation all around the kidney to allow it to go ahead and vasodilate nicely, We reapired one area on the medial aspect tof the venous anastomosis with a U-stitch, which achieved good hemostasis. Further hemostasis was obtained by the use of a clipnext to the hilum. Electrocautery was used on the capsule as necessary. The kidney pinked up nicely. The patient was given our standard mannitol 12.5 gm as well as Lasix 100 mg IV and the second dose of Solumedrol 250 mg IV prior to reperfusion of the allograft. He tolerated this well. We then went ahead and placed the kidney into the right OR left iliac fossa. It laid nicely and had good color. We then repositioned the Bookwalter retractor and had good exposure of the bladder. The antibiotic irrigant was flushed into the bladder. The bladder distended very nicely into our field. After cutting the ureter to the correct length, we opened it to match the bladder opening, and then placed 5-0 PDS suture at each end. We did place a ureteral stent into the transplant ureter into the collecting system and it laid nicely and then into the bladder. When this was completed we placed an anti-reflux layer by using two Lembert type sutures of 5-0 PDS. We had good hemostasis. We irrigated again with antibiotic solution. Again the kidney laid nicely in the right iliac fossa. The vessels were laying nicely , with no signs of any obstruction to either inflow or outflow. There was a good pulse in distal external iliac artery also as well as the renal artery. We went ahead and did the count as we prepared to close the fascia. The count was correct. We went ahead and closed the fascia with running #1 PDS suture starting from each end of the wound and tying in the middle. We then used subcuticular suture to approximate the skin. A Combined dressing was then applied We had final instrument and sponge counts correct times two.
[2018-06-18] MEDS ORDERED: *morphine SULFATE 10 MG/ML PERIprocedure ONLY ONE ×2 (15:31→16:18)
[2018-06-18] MEDS ORDERED: *Meperidine Inj 25 MG/ML Vial PERIprocedural Use ONLY ONE (15:36)
--- NOTE | 2018-06-18 15:47 | XR ---
EXAM DATE: 06/18/2018 3:44 PM EDT AGE/SEX: 43 years / Male INDICATIONS: Evaluate central line placement. CLINICAL DATA: This is the patient's initial encounter. Patient reports that signs and symptoms have been present for 1 day and indicates a pain score of Nonresponsive. MEDICAL/SURGICAL HISTORY: Non-responsive. Non-responsive. COMPARISON: [facility] [place] 2[place]&LAT[place]18/[place]. . FINDINGS: A single AP view of the chest demonstrates the lungs to be symmetrically aerated without evidence of mass, infiltrate or effusion. There is a left IJ central venous catheter is tip overlying the SVC. No visible pneumothorax is seen The cardiomediastinal contours are unremarkable. Osseous structures a re intact. CONCLUSION: Left IJ catheter in good position Electronically signed by: Siddhartha Chan MD 06/18/2018 3:45 PM EDT
[2018-06-18 15:54] LABS: Baso % (Auto) 0.1 % (0.0-2.0); Eos % (Auto) 0.1 % (0.0-4.0); Hematocrit 26.4 % (39.0-51.0); Lymph % (Auto) 0.8 % (9.0-44.0); Mean Corpuscular HGB Conc 34.2 % (32.0-36.0); Mean Corpuscular Hemoglobin 31.1 pg (27.0-34.0); Mean Platelet Volume 7.7 fL (7.0-11.0); Mono # (Auto) 0.1 th/mm3 (0.0-0.9); Mono % (Auto) 1.8 % (0.0-8.0); Neut # (Auto) 4.4 th/mm3 (1.8-7.7); Neut % (Auto) 97.2 % (16.0-70.0); Platelet Count 182 th/mm3 (150-450); Red Cell Distribution Width 15.6 % (11.6-17.2); White Blood Count 4.5 th/mm3 (4.0-11.0)
[2018-06-18] MEDS: Dextrose 5%/NaCl 0.45% Inj 1,000 ML IV.CONT SCH (15:54)
[2018-06-18] MEDS: Sodium Chloride 0.45 % Inj 1,000 ML IV.CONT PRN (16:00)
[2018-06-18] MEDS: Pantoprazole Inj 40 MG Vial IV.PUSH SCH (16:01)
--- NOTE | 2018-06-18 16:16 | US ---
EXAM DATE: 06/18/2018 4:13 PM EDT AGE/SEX: 43 years / Male INDICATIONS: Post op renal transplant surgery. CLINICAL DATA: This is the patient's subsequent encounter. Patient reports that signs and symptoms h ave been present for 1 day and indicates a pain score of 6/10. MEDICAL/SURGICAL HISTORY: Renal disease, end stage. Hepatitis C. Hypercholesterolemia. Anemi a. Dialysis. Hypertension. Nephrectomy, right. COMPARISON: [facility] [place] & [place]EL[place] W/O CONTRAST, 04/30/2018. . MEASUREMENTS: Transplant Kidney:__12.1 x 5.3 x 6.5 cm Location:__Right lower quadrant Arcuate Arteries Resistive Index: Upper - 0.66 Mid - 0.69 Lower - 0.70 Main Renal Artery Velocity:__117 cm/sec Main Renal Vein:__Patent External Iliac Artery Velocity:__141 cm/sec External Iliac Vein:__Patent FINDINGS: Transplant Kidney: Normal echotexture and cortical thickness. No mass or hydronephrosis. No peritran splant fluid. Urinary Bladder: Moore catheter is present. Bladder decompressed. Other: None. CONCLUSION: 1. Negative examination. Electronically signed by: Vanna Neville MD 06/18/2018 4:15 PM EDT
[2018-06-18 16:29] LABS: Calcium 7.3 mg/dL (8.5-10.1); Carbon Dioxide 25.1 meq/L (21.0-32.0); Phosphorus 4.3 mg/dL (2.5-4.9); Potassium 4.3 meq/L (3.5-5.1)
[2018-06-18 17:06] LABS: Total Protein 5.3 g/dL (6.4-8.2)
[2018-06-18] MEDS: amLODIPine 10 MG Tablet PO SCH (18:16)
[2018-06-18] MEDS: Vitamin B Complex/Vit C/Folic Tablet PO SCH (18:16)
[2018-06-18] MEDS: Labetalol 200 MG Tablet PO SCH ×2 (18:17→20:56)
[2018-06-18] MEDS: Calcitriol 0.25 MCG Capsule PO SCH (18:17)
[2018-06-18] MEDS ORDERED: Morphine Inj 30 MG/30 ML PCA.VIAL PCA PRN (19:15)
[2018-06-18] MEDS ORDERED: Morphine Inj 4 MG/ML Vial IV.SIG ONE (19:30)
[2018-06-18] MEDS: Docusate Sodium 100 MG Capsule PO SCH (20:55)
[2018-06-18] MEDS: Morphine Inj 30 MG/30 ML PCA.VIAL PCA PRN (20:56)
[2018-06-19] MEDS: Sodium Chloride 0.45 % Inj 1,000 ML IV.CONT PRN ×3 (06:16→21:00)
[2018-06-19 06:18] LABS: Baso % (Auto) 0.2 % (0.0-2.0); Hematocrit 27.1 % (39.0-51.0); Lymph # (Auto) 0.1 th/mm3 (1.0-4.8); Lymph % (Auto) 0.9 % (9.0-44.0); Mean Corpuscular HGB Conc 33.3 % (32.0-36.0); Mean Corpuscular Hemoglobin 30.7 pg (27.0-34.0); Mean Corpuscular Volume 92.3 fL (80.0-100.0); Mean Platelet Volume 8.6 fL (7.0-11.0); Mono # (Auto) 0.5 th/mm3 (0.0-0.9); Mono % (Auto) 6.2 % (0.0-8.0); Neut # (Auto) 7.8 th/mm3 (1.8-7.7); Neut % (Auto) 92.7 % (16.0-70.0); Platelet Count 187 th/mm3 (150-450); Red Blood Count 2.93 mil/mm3 (4.50-5.90); Red Cell Distribution Width 16.1 % (11.6-17.2); White Blood Count 8.4 th/mm3 (4.0-11.0)
[2018-06-19] MEDS ORDERED: Albumin Human 5% Inj 500 ML IV.SIG ONE (06:20)
[2018-06-19 06:54] LABS: Calcium 7.6 mg/dL (8.5-10.1); Carbon Dioxide 23.5 meq/L (21.0-32.0); Magnesium 1.9 mg/dL (1.5-2.5); Phosphorus 5.8 mg/dL (2.5-4.9); Potassium 4.8 meq/L (3.5-5.1)
--- NOTE | 2018-06-19 07:50 | P.OP ---
- Preoperative Diagnosis (1) End stage renal disease - Postoperative Diagnosis (1) End stage renal disease Date of procedure: 06/18/18 (assist note) Procedure: cadaveric kidney transplant Anesthesia: GETA Surgeon: Giorgio Hyatt MD Operation and Findings: i assisted dr. Kumar in the cadaveric kidney transplant. Backtable preparation of organ: i prepared the kidney allograft on the backtable which included removing access dittue and preparing the renal artery, vein and ureter for implantation. Assist note: i assisted Dr. Kumar in the implantation of the allograft which included arterial and venous anastomoses and ureteral implant. The details as dictated by Dr. Kumar.
--- NOTE | 2018-06-19 09:24 | P.PNNP ---
Subjective Interval history: Patient doing better postoperative day 1 status post kidney transplant Physical Exam Vital signs: Vital Signs 06/18/18 11:36 06/18/18 15:02 06/18/18 15:15 Temperature 98.2 F 97.6 F Pulse Rate 75 77 76 Respiratory Rate 15 18 18 Blood Pressure 142/92 H 126/79 103/63 Pulse Oximetry 100 100 100 06/18/18 15:30 06/18/18 15:45 06/18/18 16:00 Temperature Pulse Rate 77 76 83 Respiratory Rate 18 18 18 Blood Pressure 128/84 111/70 119/77 Pulse Oximetry 100 100 100 06/18/18 16:15 06/18/18 16:30 06/18/18 16:45 Temperature Pulse Rate 85 85 85 Respiratory Rate 18 18 18 Blood Pressure 115/67 111/75 113/75 Pulse Oximetry 100 100 100 06/18/18 17:00 06/18/18 17:15 06/18/18 17:30 Temperature 97.8 F Pulse Rate 89 90 92 H Respiratory Rate 18 18 18 Blood Pressure 120/74 108/69 114/64 Pulse Oximetry 100 100 100 06/18/18 18:00 06/18/18 18:35 06/18/18 19:00 Temperature 98.1 F Pulse Rate 95 H 94 H Respiratory Rate 14 Blood Pressure 115/89 Pulse Oximetry 100 100 100 06/18/18 20:00 06/18/18 21:20 06/18/18 21:26 Temperature 97.9 F Pulse Rate 94 H Respiratory Rate 16 16 Blood Pressure 118/75 Pulse Oximetry 99 99 06/18/18 23:00 06/19/18 03:00 Temperature 97.7 F 98.6 F Pulse Rate 93 H 84 Respiratory Rate 16 16 Blood Pressure 106/70 104/72 Pulse Oximetry 99 99 Intake & Output 06/18/18 06/19/18 06/19/18 18:59 06:59 18:59 Intake Total 2468 / 2468 1869 / 1869 Output Total 427 / 427 790 / 790 Balance 2041 / 2041 1079 / 1079 Weight 82 kg Intake: IV 50 / 50 889 / 889 1/2 Normal Saline Inj 1,000 ML 88 / 889 @ Titrate IV.CONT .Q0M PRN Rx#: [id number] Ancef 2 GM Premix Inj 2 gm In 50 / 50 50 ml @ 100 mls/hr IV.SIG COMMUNICATION SKILLS INSTRUCTOR PRN Rx#:[id number] Oral 480 / 480 Anesthesia Amount 1950 / 1950 Other 468 / 468 500 / 500 Output: Estimated Blood Loss 100 / 100 Urine Amount (Catheter) 327 / 327 790 / 790 Indwelling Urethral Catheter 327 / 327 790 / 790 Other: # Bowel Movements 0 Narrative: General patient in no acute distress HEENT extraocular movements are intact, clear oropharyngeal mucosa, no JVD Cardiovascular S1-S2 audible, RRR, no murmurs rubs or gallops Respiratory clear to auscultation bilaterally Abdomen soft, nontender, nondistended, status post kidney transplant incision Extremities no edema Neuro alert oriented x3 - Urinary Catheter Management Indwelling Urethral Catheter Cath placed during this visit: yes Reason for continuing: Hourly intake/output Insertion date: 06/18/18 Insertion time: 13:00 Assessment and Plan - Assessment (1) End stage renal disease Code(s): N18.6 - End stage renal disease Status: Chronic (2) Hypertension Code(s): I10 - Essential (primary) hypertension Status: Chronic - Plan Patient status post kidney transplant nonoliguric Doing well Creatinine declining Continue with Thymoglobulin follow Labs hold BP medications
[2018-06-19] MEDS ORDERED: Hydrocortisone Sod Succinate 100 MG Vial IV.PUSH PRN (09:28)
--- NOTE | 2018-06-19 09:44 | P.DIET ---
Nutritional Evaluation Type of nutrition evaluation: initial Screening comments: Nutrition Assessment Post-Transplant Day One Subjective Subjective Comments: Pt states he is tolerating his CL well, no complaints at this time. Objective - Diagnosis ESRD - Objective Body Mass Index: 21.4 % IBW: 91 Energy Needs - Lower Range (kCal/kg): 28 Energy Needs - Upper Range (kCal/kg): 33 Lower Limit kCal/kg (kCals): 2,120 Upper Limit kCal/kg (kCals): 2,498 Lower Limit Protein Factor (Grams per Kg): 1.2 Upper Limit Protein Factor (Grams per Kg): 1.4 Lower Protein Needs (Protein): 91 Upper Protein Needs (Protein): 106 Estimated Fluid Needs (ml): 2,000 Dietitian Reviewed in Medical Record: Current diet, Curent medications, Intake & Output, Labs, Medical history Diet Order: CL Objective Comments: Pt's nutritional needs based on admit wt of 75.7kg Noted Labs: K+ 4.8, Cr 16.43, Phosphorus 5.8 UOP: 1117mls Assessment Assessment: Patient s/p kidney transplant day one. Nutritional needs as assessed above. Pt is making urine, creatinine is coming down. He is presently on a CL diet and tolerating it well. Will follow the patient with the transplant team and educate prior to discharge. Dietitian to Monitor: Lab values, Renal labs, Intake & Output, Diet tolerance, Weight change, Diet advancement, Medical course
--- NOTE | 2018-06-19 09:51 | P.PNTS ---
Subjective Interval history: No new c/o. Adele po well Physical Exam Vital signs: Vital Signs 06/18/18 11:36 06/18/18 15:02 06/18/18 15:15 Temperature 98.2 F 97.6 F Pulse Rate 75 77 76 Respiratory Rate 15 18 18 Blood Pressure 142/92 H 126/79 103/63 Pulse Oximetry 100 100 100 06/18/18 15:30 06/18/18 15:45 06/18/18 16:00 Temperature Pulse Rate 77 76 83 Respiratory Rate 18 18 18 Blood Pressure 128/84 111/70 119/77 Pulse Oximetry 100 100 100 06/18/18 16:15 06/18/18 16:30 06/18/18 16:45 Temperature Pulse Rate 85 85 85 Respiratory Rate 18 18 18 Blood Pressure 115/67 111/75 113/75 Pulse Oximetry 100 100 100 06/18/18 17:00 06/18/18 17:15 06/18/18 17:30 Temperature 97.8 F Pulse Rate 89 90 92 H Respiratory Rate 18 18 18 Blood Pressure 120/74 108/69 114/64 Pulse Oximetry 100 100 100 06/18/18 18:00 06/18/18 18:35 06/18/18 19:00 Temperature 98.1 F Pulse Rate 95 H 94 H Respiratory Rate 14 Blood Pressure 115/89 Pulse Oximetry 100 100 100 06/18/18 20:00 06/18/18 21:20 06/18/18 21:26 Temperature 97.9 F Pulse Rate 94 H Respiratory Rate 16 16 Blood Pressure 118/75 Pulse Oximetry 99 99 06/18/18 23:00 06/19/18 03:00 Temperature 97.7 F 98.6 F Pulse Rate 93 H 84 Respiratory Rate 16 16 Blood Pressure 106/70 104/72 Pulse Oximetry 99 99 Intake & Output 06/18/18 06/19/18 06/19/18 18:59 06:59 18:59 Intake Total 2468 / 2468 1869 / 1869 Output Total 427 / 427 790 / 790 Balance 2041 / 2041 1079 / 1079 Weight 82 kg Intake: IV 50 / 50 889 / 889 1/2 Normal Saline Inj 1,000 ML 889 / 889 @ Titrate IV.CONT .Q0M PRN Rx#: [id number] Ancef 2 GM Premix Inj 2 gm In 50 / 50 50 ml @ 100 mls/hr IV.SIG CANARY RAISER PRN Rx#:[id number] Oral 480 / 480 Anesthesia Amount 1950 / 1950 Other 468 / 468 500 / 500 Output: Estimated Blood Loss 100 / 100 Urine Amount (Catheter) 327 / 327 790 / 790 Indwelling Urethral Catheter 327 / 327 790 / 790 Other: # Bowel Movements 0 - Constitutional no acute distress - Routine HEENT Exam Head: Present: normocephalic, atraumatic Eye: Present: EOMI ENT: Present: mucous membranes moist - Routine Neck Exam Present: supple - Routine Respiratory Exam Present: CTA bilaterally - Routine Cardiovascular Exam Present: RRR, S1, S2 - Routine Extremities Exam Present: pulses intact - Routine Skin Exam Present: intact - Routine Neurological Exam Present: alert, oriented X3 - Detailed Neurological Exam: Coma Scale Verbal Response: Oriented - Routine Psychiatric Exam Present: normal affect, normal thought process - Urinary Catheter Management Indwelling Urethral Catheter Cath placed during this visit: yes Urethral indwelling: Yes Reason for continuing: Hourly intake/output Insertion date: 06/18/18 Insertion time: 13:00 Results - Labs CBC & Chem 7: 06/19/18 05:15 06/19/18 05:15 Laboratory Results - last 24 hr 06/18/18 06/18/18 06/18/18 00:25 15:41 15:41 WBC 4.5 RBC 2.90 L Hgb 9.0 L Hct 26.4 L MCV 91.0 MCH 31.1 MCHC 34.2 RDW 15.6 Plt Count 182 MPV 7.7 Neut % (Auto) 97.2 H Lymph % (Auto) 0.8 L [place] % (Auto) 1.8 Eos % (Auto) 0.1 Baso % (Auto) 0.1 Neut # (Auto) 4.4 Lymph # (Auto) 0.0 L [place] # (Auto) 0.1 Eos # (Auto) 0.0 Baso # (Auto) 0.0 WBC Differential . Differential Comment Auto diff final Sodium 139 Potassium 4.3 Chloride 104 Carbon Dioxide 25.1 Anion Gap 10 BUN 52 H Creatinine 19.92 H* Estimated GFR 3 L POC Glucose Random Glucose 92 Calcium 7.3 L* D Prot Corrected Calcium 8.3 L Phosphorus 4.3 Magnesium 2.0 Total Protein 5.3 L D Blood Type O Positive Blood Type Recheck Not needed Antibody Screen Negative MTS Gel Crossmatch See Detail 06/18/18 06/19/18 06/19/18 18:59 00:25 03:25 WBC RBC Hgb Hct MCV MCH MCHC RDW Plt Count MPV Neut % (Auto) Lymph % (Auto) [place] % (Auto) Eos % (Auto) Baso % (Auto) Neut # (Auto) Lymph # (Auto) [place] # (Auto) Eos # (Auto) Baso # (Auto) WBC Differential Differential Comment Sodium Potassium Chloride Carbon Dioxide Anion Gap BUN Creatinine Estimated GFR POC Glucose 136 H 135 H 124 H Random Glucose Calcium Prot Corrected Calcium Phosphorus Magnesium Total Protein Blood Type Blood Type Recheck Antibody Screen MTS Gel Crossmatch 06/19/18 06/19/18 06/19/18 05:15 05:15 05:24 WBC 8.4 D RBC 2.93 L Hgb 9.0 L Hct 27.1 L MCV 92.3 MCH 30.7 MCHC 33.3 RDW 16.1 Plt Count 187 MPV 8.6 Neut % (Auto) 92.7 H Lymph % (Auto) 0.9 L [place] % (Auto) 6.2 Eos % (Auto) 0.0 Baso % (Auto) 0.2 Neut # (Auto) 7.8 H Lymph # (Auto) 0.1 L [place] # (Auto) 0.5 Eos # (Auto) 0.0 Baso # (Auto) 0.0 WBC Differential . Differential Comment Auto diff final Sodium 137 Potassium 4.8 Chloride 102 Carbon Dioxide 23.5 Anion Gap 12 BUN 57 H Creatinine 16.43 H* D Estimated GFR 4 L POC Glucose 137 H Random Glucose 122 H Calcium 7.6 L Prot Corrected Calcium Phosphorus 5.8 H D Magnesium 1.9 Total Protein Blood Type Blood Type Recheck Antibody Screen MTS Gel Crossmatch - Imaging Impressions Chest X-Ray 06/18/18 15:00 CONCLUSION: Left IJ catheter in good position Renal Ultrasound 06/18/18 15:05 CONCLUSION: 1. Negative examination. Assessment and Plan - Plan Mr Quinton Galvan has ESRD secondary to htn and was admitted for donor kidney transplantation. S/P donor kidney transplant to right iliac fossa. Allograft function: immediate: Immunosuppression: Thymo induction; Maint: steroids + Cellcept . Second thymo dose planned today (1.5 mg/kg ideal weight). Will plan to start low dose tacrolimus tomorrow Patient overall doing well. Good UOP overnight. Creatinine decreasing. Started on clear liquids. Will advance as tolerated. .
[2018-06-19] MEDS: Pantoprazole Inj 40 MG Vial IV.PUSH SCH (10:22)
[2018-06-19] MEDS: Calcitriol 0.25 MCG Capsule PO SCH (10:22)
[2018-06-19] MEDS: Vitamin B Complex/Vit C/Folic Tablet PO SCH (10:24)
[2018-06-19] MEDS: Docusate Sodium 100 MG Capsule PO SCH ×2 (10:26→20:34)
[2018-06-19] MEDS: amLODIPine 10 MG Tablet PO SCH (10:28)
[2018-06-19] MEDS: Labetalol 200 MG Tablet PO SCH (10:28)
[2018-06-19] MEDS ORDERED: MethylPREDNISolone Sod Succinate Inj 125 MG/2 ML Vial IV.PUSH ONE (11:30)
[2018-06-19] MEDS ORDERED: Acetaminophen 325 MG Tablet PO ONE (11:30)
[2018-06-19] MEDS ORDERED: SODIUM CHLOR 0.9% IV.SIG ONE (12:00)
[2018-06-19] MEDS ORDERED: ANTITHYMOCYTE IG IV.SIG ONE (12:00)
[2018-06-19] MEDS: Dextrose 5%/NaCl 0.45% Inj 1,000 ML IV.CONT SCH (15:31)
--- NOTE | 2018-06-19 16:32 | P.PN ---
Subjective Interval history: Follow-up for ESRD status post renal transplant. Patient is currently doing well sitting in his chair. No acute concerns. No fever or chills. Starting to tolerate diet. Physical Exam Vital signs: Vital Signs 06/18/18 16:30 06/18/18 16:45 06/18/18 17:00 Temperature Pulse Rate 85 85 89 Respiratory Rate 18 18 18 Blood Pressure 111/75 113/75 120/74 Pulse Oximetry 100 100 100 06/18/18 17:15 06/18/18 17:30 06/18/18 18:00 Temperature 97.8 F 98.1 F Pulse Rate 90 92 H 95 H Respiratory Rate 18 18 14 Blood Pressure 108/69 114/64 115/89 Pulse Oximetry 100 100 100 06/18/18 18:35 06/18/18 19:00 06/18/18 20:00 Temperature 97.9 F Pulse Rate 94 H 94 H Respiratory Rate 16 Blood Pressure 118/75 Pulse Oximetry 100 100 99 06/18/18 21:20 06/18/18 21:26 06/18/18 23:00 Temperature 97.7 F Pulse Rate 93 H Respiratory Rate 16 16 Blood Pressure 106/70 Pulse Oximetry 99 99 06/19/18 03:00 06/19/18 07:00 06/19/18 11:00 Temperature 98.6 F 98.6 F 98.8 F Pulse Rate 84 80 78 Respiratory Rate 16 16 16 Blood Pressure 104/72 129/81 124/87 Pulse Oximetry 99 99 98 06/19/18 14:19 Temperature Pulse Rate Respiratory Rate Blood Pressure Pulse Oximetry 97 Intake & Output 06/18/18 06/19/18 06/19/18 18:59 06:59 18:59 Intake Total 2468 / 2468 1869 / 1869 1350 / 1350 Output Total 427 / 427 790 / 790 350 / 350 Balance 2041 / 2041 1079 / 1079 1000 / 1000 Weight 82 kg Intake: IV 50 / 50 889 / 889 1350 / 1350 D5W/1/2 NS Inj 1,000 ML @ 40 350 / 350 mls/hr IV.CONT .Q24H JOSE L Rx#: [id number] 1/2 Normal Saline Inj 1,000 ML 889 / 889 1000 / 1000 @ Titrate IV.CONT .Q0M PRN Rx#: [id number] Ancef 2 GM Premix Inj 2 gm In 50 / 50 50 ml @ 100 mls/hr IV.SIG FINISH MACHINE TENDER PRN Rx#:[id number] Oral 480 / 480 Anesthesia Amount 1950 / 1950 Other 468 / 468 500 / 500 Output: Estimated Blood Loss 100 / 100 Urine Amount (Catheter) 327 / 327 790 / 790 350 / 350 Indwelling Urethral Catheter 327 / 327 790 / 790 350 / 350 Other: Date of Last Bowel Movement 06/18/18 # Bowel Movements 0 Narrative: General patient in no acute distress HEENT extraocular movements are intact, clear oropharyngeal mucosa, no JVD Cardiovascular S1-S2 audible, RRR, no murmurs rubs or gallops Respiratory clear to auscultation bilaterally Abdomen soft, nontender, nondistended, status post kidney transplant incision Extremities no edema Neuro alert oriented x3 - Urinary Catheter Management Indwelling Urethral Catheter Cath placed during this visit: yes Urethral indwelling: Yes Reason for continuing: Hourly intake/output Insertion date: 06/18/18 Insertion time: 13:00 Results - Labs CBC & Chem 7: 06/19/18 05:15 06/19/18 05:15 Laboratory Results - last 24 hr 06/18/18 06/18/18 06/18/18 00:25 15:41 18:59 WBC RBC Hgb Hct MCV MCH MCHC RDW Plt Count MPV Neut % (Auto) Lymph % (Auto) [place] % (Auto) Eos % (Auto) Baso % (Auto) Neut # (Auto) Lymph # (Auto) [place] # (Auto) Eos # (Auto) Baso # (Auto) WBC Differential Differential Comment Sodium 139 Potassium 4.3 Chloride 104 Carbon Dioxide 25.1 Anion Gap 10 BUN 52 H Creatinine 19.92 H* Estimated GFR 3 L POC Glucose 136 H Random Glucose 92 Calcium 7.3 L* D Prot Corrected Calcium 8.3 L Phosphorus 4.3 Magnesium 2.0 Total Protein 5.3 L D Blood Type O Positive Blood Type Recheck Not needed Antibody Screen Negative MTS Gel Crossmatch See Detail 06/19/18 06/19/18 06/19/18 00:25 03:25 05:15 WBC RBC Hgb Hct MCV MCH MCHC RDW Plt Count MPV Neut % (Auto) Lymph % (Auto) [place] % (Auto) Eos % (Auto) Baso % (Auto) Neut # (Auto) Lymph # (Auto) [place] # (Auto) Eos # (Auto) Baso # (Auto) WBC Differential Differential Comment Sodium 137 Potassium 4.8 Chloride 102 Carbon Dioxide 23.5 Anion Gap 12 BUN 57 H Creatinine 16.43 H* D Estimated GFR 4 L POC Glucose 135 H 124 H Random Glucose 122 H Calcium 7.6 L Prot Corrected Calcium Phosphorus 5.8 H D Magnesium 1.9 Total Protein Blood Type Blood Type Recheck Antibody Screen MTS Gel Crossmatch 06/19/18 06/19/18 06/19/18 05:15 05:24 11:51 WBC 8.4 D RBC 2.93 L Hgb 9.0 L Hct 27.1 L MCV 92.3 MCH 30.7 MCHC 33.3 RDW 16.1 Plt Count 187 MPV 8.6 Neut % (Auto) 92.7 H Lymph % (Auto) 0.9 L [place] % (Auto) 6.2 Eos % (Auto) 0.0 Baso % (Auto) 0.2 Neut # (Auto) 7.8 H Lymph # (Auto) 0.1 L [place] # (Auto) 0.5 Eos # (Auto) 0.0 Baso # (Auto) 0.0 WBC Differential . Differential Comment Auto diff final Sodium Potassium Chloride Carbon Dioxide Anion Gap BUN Creatinine Estimated GFR POC Glucose 137 H 133 H Random Glucose Calcium Prot Corrected Calcium Phosphorus Magnesium Total Protein Blood Type Blood Type Recheck Antibody Screen MTS Gel Crossmatch Assessment and Plan - Plan This patient is a 43-year-old male with a diagnosis of right- sided renal cell carcinoma status post nephrectomy, end-stage renal disease on hemodialysis, hepatitis C, dyslipidemia, hypertension. The patient presented to our facility for a renal transplantation. He was admitted under the hospitalist service for medical management prior to undergoing kidney transplant. End-stage renal disease on hemodialysis -Left donor kidney transplant to right iliac fossa -Thymoglobulin administration per transplant surgeon. -Continue CellCept plus hydrocortisone Hypertension -Hold amlodipine, labetalol for now. Patient is normotensive currently. Dyslipidemia -Continue Lipitor 20 mg p.o. daily. Full code. SCDs.
[2018-06-19] MEDS: Morphine Inj 30 MG/30 ML PCA.VIAL PCA PRN (19:44)
[2018-06-20 05:40] LABS: Baso % (Auto) 0.2 % (0.0-2.0); Eos % (Auto) 0.1 % (0.0-4.0); Hematocrit 21.6 % (39.0-51.0); Hemoglobin 7.3 gm/dL (13.0-17.0); Lymph % (Auto) 1.2 % (9.0-44.0); Mean Corpuscular HGB Conc 33.6 % (32.0-36.0); Mean Corpuscular Volume 92.2 fL (80.0-100.0); Mean Platelet Volume 8.7 fL (7.0-11.0); Mono # (Auto) 0.3 th/mm3 (0.0-0.9); Mono % (Auto) 8.9 % (0.0-8.0); Neut # (Auto) 2.7 th/mm3 (1.8-7.7); Neut % (Auto) 89.6 % (16.0-70.0); Platelet Count 134 th/mm3 (150-450); Red Blood Count 2.34 mil/mm3 (4.50-5.90); Red Cell Distribution Width 16.3 % (11.6-17.2)
[2018-06-20 05:59] LABS: Calcium 8.1 mg/dL (8.5-10.1); Carbon Dioxide 24.3 meq/L (21.0-32.0); Phosphorus 3.2 mg/dL (2.5-4.9); Potassium 4.4 meq/L (3.5-5.1)
--- NOTE | 2018-06-20 08:22 | P.PNIM ---
Subjective Interval history: f/u; s/p kidney transplant in no acute distress. looks fairly comfortable and pain is controlled. no dizziness/ no fever. d/w the RN. Physical Exam Vital signs: Vital Signs 06/19/18 11:00 06/19/18 12:30 06/19/18 12:45 Temperature 98.8 F 99.3 F Pulse Rate 78 76 80 Respiratory Rate 16 16 16 Blood Pressure 124/87 119/64 125/63 Pulse Oximetry 98 98 98 06/19/18 13:00 06/19/18 13:15 06/19/18 13:30 Temperature Pulse Rate 76 71 75 Respiratory Rate 16 16 16 Blood Pressure 120/58 L 114/55 L 121/65 Pulse Oximetry 98 98 98 06/19/18 14:00 06/19/18 14:19 06/19/18 15:00 Temperature 97.3 F L Pulse Rate 72 72 Respiratory Rate 16 16 Blood Pressure 122/63 126/72 Pulse Oximetry 98 97 98 06/19/18 16:00 06/19/18 17:00 06/19/18 18:00 Temperature Pulse Rate 69 67 76 Respiratory Rate 16 16 16 Blood Pressure 116/56 L 126/71 134/90 Pulse Oximetry 98 98 98 06/19/18 19:00 06/19/18 21:01 06/19/18 23:00 Temperature 98.9 F 98.6 F Pulse Rate 77 85 Respiratory Rate 22 12 Blood Pressure 149/87 H 128/82 Pulse Oximetry 96 94 L 98 06/20/18 03:00 Temperature 98.6 F Pulse Rate 83 Respiratory Rate 12 Blood Pressure 128/82 Pulse Oximetry 98 Intake & Output 06/19/18 06/20/18 06/20/18 18:59 06:59 18:59 Intake Total 1988 5310 / 5310 Output Total 2145 / 2145 4500 / 4500 300 / 300 Balance -156 / -156 810 / 810 -300 / -300 Weight 80.4 kg Intake: IV 1988 4590 / 4590 D5W/1/2 NS Inj 1,000 ML @ 40 448 / 448 440 / 440 mls/hr IV.CONT .Q24H JOSE L Rx#: [id number] /2 Normal Saline Inj 1,000 ML 1000 / 1000 4150 / 4150 @ Titrate IV.CONT .Q0M PRN Rx#: [id number] Thymoglobulin Inj 114 MG In NS 541 / 541 Inj 500 ML @ 125 mls/hr IV.SIG ONCE ONE Rx#:[id number] Oral 720 / 720 Output: Urine Amount (Catheter) 2144 4500 / 4500 300 / 300 Indwelling Urethral Catheter 2144 4500 / 4500 300 / 300 Other: Date of Last Bowel Movement 06/18/18 06/18/18 - Constitutional no acute distress - Routine Respiratory Exam Present: CTA bilaterally - Routine Cardiovascular Exam Present: RRR - Routine Abdominal Exam Present: soft - Routine Extremities Exam Comments: no pedal edema. - Routine Neurological Exam Present: alert, oriented X3 - Urinary Catheter Management Indwelling Urethral Catheter Cath placed during this visit: yes Urethral indwelling: Yes Reason for continuing: Hourly intake/output Insertion date: 06/18/18 Insertion time: 13:00 Results - Labs CBC & Chem 7: 06/20/18 04:50 06/20/18 04:50 Laboratory Results - last 24 hr 06/18/18 06/19/18 06/19/18 00:25 11:51 16:49 WBC RBC Hgb Hct MCV MCH MCHC RDW Plt Count MPV Neut % (Auto) Lymph % (Auto) [place] % (Auto) Eos % (Auto) Baso % (Auto) Neut # (Auto) Lymph # (Auto) [place] # (Auto) Eos # (Auto) Baso # (Auto) WBC Differential Differential Comment Sodium Potassium Chloride Carbon Dioxide Anion Gap BUN Creatinine Estimated GFR POC Glucose 133 H 150 H Random Glucose Calcium Phosphorus Magnesium MTS Gel Crossmatch See Detail 06/19/18 06/20/18 06/20/18 23:41 04:50 04:50 WBC 3.0 L D RBC 2.34 L Hgb 7.3 L Hct 21.6 L MCV 92.2 MCH 31.0 MCHC 33.6 RDW 16.3 Plt Count 134 L MPV 8.7 Neut % (Auto) 89.6 H Lymph % (Auto) 1.2 L [place] % (Auto) 8.9 H Eos % (Auto) 0.1 Baso % (Auto) 0.2 Neut # (Auto) 2.7 Lymph # (Auto) 0.0 L [place] # (Auto) 0.3 Eos # (Auto) 0.0 Baso # (Auto) 0.0 WBC Differential . Differential Comment Auto diff final Sodium 142 Potassium 4.4 Chloride 110 H D Carbon Dioxide 24.3 Anion Gap 8 BUN 41 H Creatinine 6.54 H Estimated GFR 11 L POC Glucose 158 H Random Glucose 125 H Calcium 8.1 L Phosphorus 3.2 D Magnesium 2.0 MTS Gel Crossmatch Assessment and Plan - Plan End-stage renal disease on hemodialysis -Left donor kidney transplant to right iliac fossa -Thymoglobulin administration per transplant surgeon. -Continue CellCept . Anemia; post-op patient is hemodynamically stable- will continue to monitor. Hypertension -Hold amlodipine, labetalol for now. Patient is normotensive currently. Dyslipidemia -Continue Lipitor 20 mg p.o. daily. Full code. SCDs.
[2018-06-20] MEDS: Pantoprazole Inj 40 MG Vial IV.PUSH SCH (09:13)
[2018-06-20] MEDS: Vitamin B Complex/Vit C/Folic Tablet PO SCH (09:15)
[2018-06-20] MEDS: Calcitriol 0.25 MCG Capsule PO SCH (09:15)
[2018-06-20] MEDS: Docusate Sodium 100 MG Capsule PO SCH ×2 (09:17→20:39)
[2018-06-20 09:32] LABS: Hematocrit 24.1 % (39.0-51.0); Hemoglobin 8.1 gm/dL (13.0-17.0); Mean Corpuscular HGB Conc 33.4 % (32.0-36.0); Mean Corpuscular Hemoglobin 31.2 pg (27.0-34.0); Mean Corpuscular Volume 93.4 fL (80.0-100.0); Mean Platelet Volume 8.7 fL (7.0-11.0); Platelet Count 147 th/mm3 (150-450); Red Blood Count 2.58 mil/mm3 (4.50-5.90); Red Cell Distribution Width 16.4 % (11.6-17.2); White Blood Count 3.4 th/mm3 (4.0-11.0)
[2018-06-20 10:11] LABS: Calcium 8.5 mg/dL (8.5-10.1); Carbon Dioxide 26.7 meq/L (21.0-32.0); Magnesium 2.1 mg/dL (1.5-2.5); Phosphorus 2.9 mg/dL (2.5-4.9); Potassium 4.5 meq/L (3.5-5.1)
[2018-06-20] MEDS ORDERED: Sodium Chloride 0.9% 2 ML Flush PRN IV.FLUSH (11:05)
--- NOTE | 2018-06-20 11:48 | P.PNTS ---
Subjective Interval history: No new c/o. Pain well controlled Physical Exam Vital signs: Vital Signs 06/19/18 12:30 06/19/18 12:45 06/19/18 13:00 Temperature 99.3 F Pulse Rate 76 80 76 Respiratory Rate 16 16 16 Blood Pressure 119/64 125/63 120/58 L Pulse Oximetry 98 98 98 06/19/18 13:15 06/19/18 13:30 06/19/18 14:00 Temperature Pulse Rate 71 75 72 Respiratory Rate 16 16 16 Blood Pressure 114/55 L 121/65 122/63 Pulse Oximetry 98 98 98 06/19/18 14:19 06/19/18 15:00 06/19/18 16:00 Temperature 97.3 F L Pulse Rate 72 69 Respiratory Rate 16 16 Blood Pressure 126/72 116/56 L Pulse Oximetry 97 98 98 06/19/18 17:00 06/19/18 18:00 06/19/18 19:00 Temperature 98.9 F Pulse Rate 67 76 77 Respiratory Rate 16 16 22 Blood Pressure 126/71 134/90 149/87 H Pulse Oximetry 98 98 96 06/19/18 21:01 06/19/18 23:00 06/20/18 03:00 Temperature 98.6 F 98.6 F Pulse Rate 85 83 Respiratory Rate 12 12 Blood Pressure 128/82 128/82 Pulse Oximetry 94 L 98 98 06/20/18 07:00 Temperature 99.3 F Pulse Rate 88 Respiratory Rate 16 Blood Pressure 148/91 H Pulse Oximetry 96 Intake & Output 06/19/18 06/20/18 06/20/18 18:59 06:59 18:59 Intake Total 1988 5310 / 5310 Output Total 2145 / 2145 4500 / 4500 300 / 300 Balance -156 / -156 810 / 810 -300 / -300 Weight 80.4 kg Intake: IV 1988 4590 / 4590 D5W//2 NS Inj 1,000 ML @ 40 448 / 448 440 / 440 mls/hr IV.CONT .Q24H JOSE L Rx#: [id number] 08/19 Normal Saline Inj 1,000 ML 1000 / 1000 4150 / 4150 @ Titrate IV.CONT .Q0M PRN Rx#: [id number] Thymoglobulin Inj 114 MG In NS 541 / 541 Inj 500 ML @ 125 mls/hr IV.SIG ONCE ONE Rx#:[id number] Oral 720 / 720 Output: Urine Amount (Catheter) 2144 4500 / 4500 300 / 300 Indwelling Urethral Catheter 2144 4500 / 4500 300 / 300 Other: Date of Last Bowel Movement 06/18/18 06/18/18 06/18/18 - Constitutional no acute distress - Routine HEENT Exam Head: Present: normocephalic, atraumatic Eye: Present: EOMI ENT: Present: mucous membranes moist - Routine Neck Exam Present: supple - Routine Respiratory Exam Present: CTA bilaterally - Routine Abdominal Exam Present: soft, normoactive bowel sounds - Routine Extremities Exam Present: pulses intact - Routine Skin Exam Present: intact - Routine Neurological Exam Present: alert, oriented X3 - Detailed Neurological Exam: Coma Scale Verbal Response: Oriented - Routine Psychiatric Exam Present: normal affect, normal thought process - Urinary Catheter Management Indwelling Urethral Catheter Cath placed during this visit: yes Urethral indwelling: Yes Reason for continuing: Hourly intake/output Insertion date: 06/18/18 Insertion time: 13:00 Results - Labs CBC & Chem 7: 06/20/18 09:00 06/20/18 09:00 Laboratory Results - last 24 hr 06/18/18 06/19/18 06/19/18 00:25 11:51 16:49 WBC RBC Hgb Hct MCV MCH MCHC RDW Plt Count MPV Neut % (Auto) Lymph % (Auto) [place] % (Auto) Eos % (Auto) Baso % (Auto) Neut # (Auto) Lymph # (Auto) [place] # (Auto) Eos # (Auto) Baso # (Auto) WBC Differential Differential Comment Sodium Potassium Chloride Carbon Dioxide Anion Gap BUN Creatinine Estimated GFR POC Glucose 133 H 150 H Random Glucose Calcium Phosphorus Magnesium MTS Gel Crossmatch See Detail 06/19/18 06/20/18 06/20/18 23:41 04:50 04:50 WBC 3.0 L D RBC 2.34 L Hgb 7.3 L Hct 21.6 L MCV 92.2 MCH 31.0 MCHC 33.6 RDW 16.3 Plt Count 134 L MPV 8.7 Neut % (Auto) 89.6 H Lymph % (Auto) 1.2 L [place] % (Auto) 8.9 H Eos % (Auto) 0.1 Baso % (Auto) 0.2 Neut # (Auto) 2.7 Lymph # (Auto) 0.0 L [place] # (Auto) 0.3 Eos # (Auto) 0.0 Baso # (Auto) 0.0 WBC Differential . Differential Comment Auto diff final Sodium 142 Potassium 4.4 Chloride 110 H D Carbon Dioxide 24.3 Anion Gap 8 BUN 41 H Creatinine 6.54 H Estimated GFR 11 L POC Glucose 158 H Random Glucose 125 H Calcium 8.1 L Phosphorus 3.2 D Magnesium 2.0 MTS Gel Crossmatch 06/20/18 06/20/18 09:00 09:00 WBC 3.4 L RBC 2.58 L Hgb 8.1 L Hct 24.1 L MCV 93.4 MCH 31.2 MCHC 33.4 RDW 16.4 Plt Count 147 L MPV 8.7 Neut % (Auto) Lymph % (Auto) [place] % (Auto) Eos % (Auto) Baso % (Auto) Neut # (Auto) Lymph # (Auto) [place] # (Auto) Eos # (Auto) Baso # (Auto) WBC Differential Differential Comment Sodium 144 Potassium 4.5 Chloride 110 H Carbon Dioxide 26.7 Anion Gap 7 BUN 38 H Creatinine 5.66 H Estimated GFR 13 L POC Glucose Random Glucose 110 H Calcium 8.5 Phosphorus 2.9 Magnesium 2.1 MTS Gel Crossmatch Assessment and Plan - Plan Mr Quinton Galvan has ESRD secondary to htn and was admitted for donor kidney transplantation. POD #2. S/P donor kidney transplant to right iliac fossa. Allograft function: immediate: Immunosuppression: Thymo induction; Maint: steroids + Cellcept . Third thymo dose planned for tomorrow (1.5 mg/kg ideal weight). Tacrolimus started Patient overall doing well. Good UOP overnight. Creatinine continues to decrease. Started on regular diet. IVFs stopped. .
[2018-06-20] MEDS ORDERED: SODIUM CHLOR 0.9% IV.SIG ONE (12:00)
[2018-06-20] MEDS ORDERED: METHYLPREDNISOLONE SOD SUC IV.SIG ONE (12:00)
--- NOTE | 2018-06-20 15:17 | P.PNNP ---
Subjective Interval history: doing well Physical Exam Vital signs: Vital Signs 06/19/18 16:00 06/19/18 17:00 06/19/18 18:00 Temperature Pulse Rate 69 67 76 Respiratory Rate 16 16 16 Blood Pressure 116/56 L 126/71 134/90 Pulse Oximetry 98 98 98 06/19/18 19:00 06/19/18 21:01 06/19/18 23:00 Temperature 98.9 F 98.6 F Pulse Rate 77 85 Respiratory Rate 22 12 Blood Pressure 149/87 H 128/82 Pulse Oximetry 96 94 L 98 06/20/18 03:00 06/20/18 07:00 06/20/18 11:00 Temperature 98.6 F 99.3 F 97.5 F L Pulse Rate 83 88 78 Respiratory Rate 12 16 16 Blood Pressure 128/82 148/91 H 146/88 H Pulse Oximetry 98 96 96 06/20/18 12:29 Temperature Pulse Rate Respiratory Rate Blood Pressure Pulse Oximetry 97 Intake & Output 06/19/18 06/20/18 06/20/18 18:59 06:59 18:59 Intake Total 1988 5310 / 5310 Output Total 2144 4500 / 4500 1600 / 1600 Balance -156 / -156 810 / 810 -1600 / -1600 Weight 80.4 kg Intake: IV 1988 4590 / 4590 D5W/1/2 NS Inj 1,000 ML @ 40 448 / 448 440 / 440 mls/hr IV.CONT .Q24H JOSE L Rx#: [id number] 08/19 Normal Saline Inj 1,000 ML 1000 / 1000 4150 / 4150 @ Titrate IV.CONT .Q0M PRN Rx#: [id number] Thymoglobulin Inj 114 MG In NS 541 / 541 Inj 500 ML @ 125 mls/hr IV.SIG ONCE ONE Rx#:[id number] Oral 720 / 720 Output: Urine Amount (Catheter) 2144 4500 / 4500 1600 / 1600 Indwelling Urethral Catheter 2144 4500 / 4500 1600 / 1600 Other: Date of Last Bowel Movement 06/18/18 06/18/18 06/18/18 Narrative: General patient in no acute distress HEENT extraocular movements are intact, clear oropharyngeal mucosa, no JVD Cardiovascular S1-S2 audible, RRR, no murmurs rubs or gallops Respiratory clear to auscultation bilaterally Abdomen soft, nontender, nondistended, status post kidney transplant incision Extremities no edema Neuro alert oriented x3 - Urinary Catheter Management Indwelling Urethral Catheter Cath placed during this visit: yes Urethral indwelling: Yes Reason for continuing: Hourly intake/output Insertion date: 06/18/18 Insertion time: 13:00 Assessment and Plan - Assessment (1) End stage renal disease Code(s): N18.6 - End stage renal disease Status: Chronic (2) Hypertension Code(s): I10 - Essential (primary) hypertension Status: Chronic - Plan Patient status post kidney transplant nonoliguric Doing well Creatinine declining Continue with Thymoglobulin follow Labs resume BP medication Labetalol as Hypertensive 166/90's
[2018-06-20 19:50] LABS: Cytomegalovirus Ab IgG <0.60 U/mL; Cytomegalovirus Ab IgM <30.00 AU/mL (<=0.8)
[2018-06-20] MEDS: Labetalol 200 MG Tablet PO SCH (20:39)
[2018-06-20] MEDS: Sodium Chloride 0.9% 2 ML Flush BID IV.FLUSH SCH (20:40)
[2018-06-21 05:48] LABS: Baso % (Auto) 0.4 % (0.0-2.0); Lymph % (Auto) 1.4 % (9.0-44.0); Mean Corpuscular HGB Conc 33.8 % (32.0-36.0); Mean Corpuscular Hemoglobin 30.3 pg (27.0-34.0); Mean Corpuscular Volume 89.5 fL (80.0-100.0); Mean Platelet Volume 8.9 fL (7.0-11.0); Mono # (Auto) 0.3 th/mm3 (0.0-0.9); Mono % (Auto) 10.9 % (0.0-8.0); Neut # (Auto) 2.3 th/mm3 (1.8-7.7); Neut % (Auto) 87.3 % (16.0-70.0); Platelet Count 129 th/mm3 (150-450); Red Blood Count 2.28 mil/mm3 (4.50-5.90); Red Cell Distribution Width 16.1 % (11.6-17.2); White Blood Count 2.7 th/mm3 (4.0-11.0)
[2018-06-21 05:55] LABS: Hematocrit 20.4 % (39.0-51.0); Hemoglobin 6.9 gm/dL (13.0-17.0)
[2018-06-21 06:19] LABS: Calcium 8.4 mg/dL (8.5-10.1); Magnesium 1.8 mg/dL (1.5-2.5); Phosphorus 1.7 mg/dL (2.5-4.9); Potassium 4.3 meq/L (3.5-5.1)
[2018-06-21 06:36] LABS: Platelet Morphology Normal (Normal); RBC Morphology Normal (Normal)
[2018-06-21] MEDS: Vitamin B Complex/Vit C/Folic Tablet PO SCH (08:01)
[2018-06-21] MEDS: Pantoprazole Inj 40 MG Vial IV.PUSH SCH (08:01)
[2018-06-21] MEDS: Docusate Sodium 100 MG Capsule PO SCH ×2 (08:01→21:08)
[2018-06-21] MEDS: Calcitriol 0.25 MCG Capsule PO SCH (08:01)
[2018-06-21] MEDS: Labetalol 200 MG Tablet PO SCH ×2 (08:03→21:09)
[2018-06-21] MEDS: Sodium Chloride 0.9% 2 ML Flush BID IV.FLUSH SCH ×2 (08:03→21:08)
[2018-06-21 09:43] LABS: Baso % (Auto) 0.1 % (0.0-2.0); Eos % (Auto) 0.1 % (0.0-4.0); Hematocrit 27.2 % (39.0-51.0); Hemoglobin 9.3 gm/dL (13.0-17.0); Mean Corpuscular HGB Conc 34.2 % (32.0-36.0); Mean Corpuscular Hemoglobin 30.9 pg (27.0-34.0); Mean Corpuscular Volume 90.5 fL (80.0-100.0); Mean Platelet Volume 8.8 fL (7.0-11.0); Mono # (Auto) 0.2 th/mm3 (0.0-0.9); Mono % (Auto) 6.5 % (0.0-8.0); Neut # (Auto) 3.1 th/mm3 (1.8-7.7); Neut % (Auto) 92.3 % (16.0-70.0); Platelet Count 164 th/mm3 (150-450); Red Cell Distribution Width 16.1 % (11.6-17.2); White Blood Count 3.4 th/mm3 (4.0-11.0)
[2018-06-21] MEDS ORDERED: Hydrocortisone Sod Succinate 100 MG Vial IV.PUSH PRN (10:00)
[2018-06-21] MEDS ORDERED: Acetaminophen 325 MG Tablet PO ONE (10:00)
--- NOTE | 2018-06-21 10:21 | P.PNTS ---
Subjective Interval history: Some minimal numbness noted at right thigh, o/w no new c/o. Physical Exam Vital signs: Vital Signs 06/20/18 12:29 06/20/18 15:00 06/20/18 19:00 Temperature 97.5 F L 99 F Pulse Rate 78 94 H Respiratory Rate 16 20 Blood Pressure 146/88 H 148/93 H Pulse Oximetry 97 96 97 06/20/18 19:30 06/20/18 23:00 06/21/18 03:00 Temperature 99.1 F 99.2 F Pulse Rate 80 81 Respiratory Rate 18 12 Blood Pressure 162/94 H 139/82 Pulse Oximetry 98 99 98 06/21/18 07:00 06/21/18 07:53 Temperature 98.6 F Pulse Rate 71 Respiratory Rate 15 Blood Pressure 153/92 H Pulse Oximetry 98 97 Intake & Output 06/20/18 06/21/18 06/21/18 19:59 06:59 18:59 Intake Total Output Total Balance Weight Intake: IV D5W/08/19 NS Inj 1,000 ML @ 40 mls/hr IV.CONT .Q24H JOSE L Rx#: [id number] SoluMEDROL Inj 90 MG In NS Inj 100 ML @ 200 mls/hr IV.SIG ONCE ONE Rx#:[id number] Oral Output: Urine Amount (Catheter) Indwelling Urethral Catheter Other: Date of Last Bowel Movement # Bowel Movements - Constitutional no acute distress - Routine HEENT Exam Head: Present: normocephalic, atraumatic Eye: Present: EOMI ENT: Present: mucous membranes moist - Routine Neck Exam Present: supple - Routine Respiratory Exam Present: CTA bilaterally - Routine Cardiovascular Exam Present: RRR, S1, S2 - Routine Abdominal Exam Present: soft, normoactive bowel sounds Comments: Wound CDI without EFT. - Routine Extremities Exam Present: pulses intact Comments: Calves soft NT B - Routine Skin Exam Present: intact - Routine Neurological Exam Present: alert, oriented X3 - Detailed Neurological Exam: Coma Scale Verbal Response: Oriented - Routine Psychiatric Exam Present: normal affect, normal thought process - Urinary Catheter Management Indwelling Urethral Catheter Cath placed during this visit: yes Urethral indwelling: Yes Reason for continuing: Hourly intake/output Insertion date: 06/18/18 Insertion time: 13:00 Results - Labs CBC & Chem 7: 06/21/18 09:14 06/21/18 05:00 Laboratory Results - last 24 hr 06/18/18 06/20/18 06/20/18 00:25 11:53 17:06 WBC RBC Hgb Hct MCV MCH MCHC RDW Plt Count MPV Prelim Diff (Auto) Neut % (Auto) Lymph % (Auto) [place] % (Auto) Eos % (Auto) Baso % (Auto) Neut # (Auto) Lymph # (Auto) [place] # (Auto) Eos # (Auto) Baso # (Auto) WBC Differential Diff Scan Differential Comment Platelet Estimate Platelet Morphology RBC Morphology Sodium Potassium Chloride Carbon Dioxide Anion Gap BUN Creatinine Estimated GFR POC Glucose 112 H 115 H Random Glucose Calcium Phosphorus Magnesium CMV IgG Ab <0.60 CMV IgM Ab <30.00 06/20/18 06/21/18 06/21/18 23:30 05:00 05:00 WBC 2.7 L RBC 2.28 L Hgb 6.9 L* Hct 20.4 L* MCV 89.5 D MCH 30.3 MCHC 33.8 RDW 16.1 Plt Count 129 L MPV 8.9 Prelim Diff (Auto) Slide review pending Neut % (Auto) 87.3 H Lymph % (Auto) 1.4 L [place] % (Auto) 10.9 H Eos % (Auto) 0.0 Baso % (Auto) 0.4 Neut # (Auto) 2.3 Lymph # (Auto) 0.0 L [place] # (Auto) 0.3 Eos # (Auto) 0.0 Baso # (Auto) 0.0 WBC Differential . Diff Scan Auto diff confirmed Differential Comment . Platelet Estimate Low L Platelet Morphology Normal RBC Morphology Normal Sodium 142 Potassium 4.3 Chloride 108 H Carbon Dioxide 29.0 Anion Gap 5 BUN 28 H Creatinine 2.71 H Estimated GFR 31 L POC Glucose 144 H Random Glucose 105 Calcium 8.4 L Phosphorus 1.7 L D Magnesium 1.8 CMV IgG Ab CMV IgM Ab 06/21/18 09:14 WBC 3.4 L RBC 3.00 L Hgb 9.3 L D Hct 27.2 L MCV 90.5 MCH 30.9 MCHC 34.2 RDW 16.1 Plt Count 164 MPV 8.8 Prelim Diff (Auto) Neut % (Auto) 92.3 H Lymph % (Auto) 1.0 L [place] % (Auto) 6.5 Eos % (Auto) 0.1 Baso % (Auto) 0.1 Neut # (Auto) 3.1 Lymph # (Auto) 0.0 L [place] # (Auto) 0.2 Eos # (Auto) 0.0 Baso # (Auto) 0.0 WBC Differential . Diff Scan Differential Comment Auto diff final Platelet Estimate Platelet Morphology RBC Morphology Sodium Potassium Chloride Carbon Dioxide Anion Gap BUN Creatinine Estimated GFR POC Glucose Random Glucose Calcium Phosphorus Magnesium CMV IgG Ab CMV IgM Ab Assessment and Plan - Plan Mr Quinton Galvan has ESRD secondary to htn and was admitted for donor kidney transplantation. POD #3. S/P donor kidney transplant to right iliac fossa. Allograft function: immediate: Immunosuppression: Thymo induction; Maint: steroids + Cellcept . Third thymo dose today (1.5 mg/kg ideal weight). Tacrolimus started/ level pending Patient overall doing well. Good UOP overnight. Creatinine continues to decrease. Lasix given. Flomax started. Will remove dean in AM.Tolerating regular diet. Dulcolax supp as no BM yet. .
--- NOTE | 2018-06-21 11:07 | P.PNIM ---
Subjective Interval history: f/u; s/p kidney transplant in no acute distress. no new complaints and overall doing good. pain is controlled. d/w the RN. Physical Exam Vital signs: Vital Signs 06/20/18 12:29 06/20/18 15:00 06/20/18 19:00 Temperature 97.5 F L 99 F Pulse Rate 78 94 H Respiratory Rate 16 20 Blood Pressure 146/88 H 148/93 H Pulse Oximetry 97 96 97 06/20/18 19:30 06/20/18 23:00 06/21/18 03:00 Temperature 99.1 F 99.2 F Pulse Rate 80 81 Respiratory Rate 18 12 Blood Pressure 162/94 H 139/82 Pulse Oximetry 98 99 98 06/21/18 07:00 06/21/18 07:53 06/21/18 08:00 Temperature 98.6 F 98.5 F Pulse Rate 71 89 Respiratory Rate 15 16 Blood Pressure 153/92 H 146/84 H Pulse Oximetry 98 97 100 06/21/18 10:00 Temperature Pulse Rate 90 Respiratory Rate Blood Pressure Pulse Oximetry Intake & Output 06/20/18 06/21/18 06/21/18 19:59 06:59 18:59 Intake Total Output Total Balance Weight Intake: IV D5W/2 NS Inj 1,000 ML @ 40 mls/hr IV.CONT .Q24H JOSE L Rx#: [id number] SoluMEDROL Inj 90 MG In NS Inj 100 ML @ 200 mls/hr IV.SIG ONCE ONE Rx#:[id number] Oral Output: Urine Amount (Catheter) Indwelling Urethral Catheter Other: Date of Last Bowel Movement # Bowel Movements - Constitutional no acute distress - Routine Respiratory Exam Present: CTA bilaterally - Routine Cardiovascular Exam Present: RRR - Routine Abdominal Exam Present: soft - Routine Extremities Exam Comments: no pedal edema. - Routine Neurological Exam Present: alert, oriented X3 - Urinary Catheter Management Indwelling Urethral Catheter Cath placed during this visit: yes Urethral indwelling: Yes Reason for continuing: Hourly intake/output Insertion date: 06/18/18 Insertion time: 13:00 Results - Labs CBC & Chem 7: 06/21/18 09:14 06/21/18 05:00 Laboratory Results - last 24 hr 06/18/18 06/20/18 06/20/18 00:25 11:53 17:06 WBC RBC Hgb Hct MCV MCH MCHC RDW Plt Count MPV Prelim Diff (Auto) Neut % (Auto) Lymph % (Auto) [place] % (Auto) Eos % (Auto) Baso % (Auto) Neut # (Auto) Lymph # (Auto) [place] # (Auto) Eos # (Auto) Baso # (Auto) WBC Differential Diff Scan Differential Comment Platelet Estimate Platelet Morphology RBC Morphology Sodium Potassium Chloride Carbon Dioxide Anion Gap BUN Creatinine Estimated GFR POC Glucose 112 H 115 H Random Glucose Calcium Phosphorus Magnesium Tacrolimus CMV IgG Ab <0.60 CMV IgM Ab <30.00 06/20/18 06/21/18 06/21/18 23:30 05:00 05:00 WBC RBC Hgb Hct MCV MCH MCHC RDW Plt Count MPV Prelim Diff (Auto) Neut % (Auto) Lymph % (Auto) [place] % (Auto) Eos % (Auto) Baso % (Auto) Neut # (Auto) Lymph # (Auto) [place] # (Auto) Eos # (Auto) Baso # (Auto) WBC Differential Diff Scan Differential Comment Platelet Estimate Platelet Morphology RBC Morphology Sodium 142 Potassium 4.3 Chloride 108 H Carbon Dioxide 29.0 Anion Gap 5 BUN 28 H Creatinine 2.71 H Estimated GFR 31 L POC Glucose 144 H Random Glucose 105 Calcium 8.4 L Phosphorus 1.7 L D Magnesium 1.8 Tacrolimus Less than 2.0 L CMV IgG Ab CMV IgM Ab 06/21/18 06/21/18 05:00 09:14 WBC 2.7 L 3.4 L RBC 2.28 L 3.00 L Hgb 6.9 L* 9.3 L D Hct 20.4 L* 27.2 L MCV 89.5 D 90.5 MCH 30.3 30.9 MCHC 33.8 34.2 RDW 16.1 16.1 Plt Count 129 L 164 MPV 8.9 8.8 Prelim Diff (Auto) Slide review pending Neut % (Auto) 87.3 H 92.3 H Lymph % (Auto) 1.4 L 1.0 L [place] % (Auto) 10.9 H 6.5 Eos % (Auto) 0.0 0.1 Baso % (Auto) 0.4 0.1 Neut # (Auto) 2.3 3.1 Lymph # (Auto) 0.0 L 0.0 L [place] # (Auto) 0.3 0.2 Eos # (Auto) 0.0 0.0 Baso # (Auto) 0.0 0.0 WBC Differential . . Diff Scan Auto diff confirmed Differential Comment . Auto diff final Platelet Estimate Low L Platelet Morphology Normal RBC Morphology Normal Sodium Potassium Chloride Carbon Dioxide Anion Gap BUN Creatinine Estimated GFR POC Glucose Random Glucose Calcium Phosphorus Magnesium Tacrolimus CMV IgG Ab CMV IgM Ab Assessment and Plan - Plan End-stage renal disease on hemodialysis -Left donor kidney transplant to right iliac fossa -Thymoglobulin administration per transplant surgeon. -Continue CellCept . Anemia; post-op patient is hemodynamically stable- will continue to monitor. Hypertension -Hold amlodipine, labetalol for now. Patient is normotensive currently. Dyslipidemia -Continue Lipitor 20 mg p.o. daily. Full code. SCDs. Discharge Planning: when cleared by transplant surgery.
[2018-06-21] MEDS ORDERED: MethylPREDNISolone Sod Succinate Inj 125 MG/2 ML Vial IV.PUSH ONE (11:30)
[2018-06-21] MEDS ORDERED: ANTITHYMOCYTE IG IV.SIG ONE (12:00)
[2018-06-21] MEDS ORDERED: SODIUM CHLOR 0.9% IV.SIG ONE (12:00)
[2018-06-21] MEDS ORDERED: Bisacodyl 10 MG Supp RECTAL PRN (15:00)
[2018-06-21] MEDS: Nystatin Liq 500,000 UNIT/5 ML UDC SWISH-SWAL SCH ×2 (17:24→21:08)
--- NOTE | 2018-06-21 17:34 | P.PNNP ---
Subjective Interval history: Patient is doing well Physical Exam Vital signs: Vital Signs 06/20/18 19:00 06/20/18 19:30 06/20/18 23:00 Temperature 99 F 99.1 F Pulse Rate 94 H 80 Respiratory Rate 20 18 Blood Pressure 148/93 H 162/94 H Pulse Oximetry 97 98 99 06/21/18 03:00 06/21/18 07:00 06/21/18 07:53 Temperature 99.2 F 98.6 F Pulse Rate 81 71 Respiratory Rate 12 15 Blood Pressure 139/82 153/92 H Pulse Oximetry 98 98 97 06/21/18 08:00 06/21/18 10:00 06/21/18 11:00 Temperature 98.5 F 98.2 F Pulse Rate 89 90 81 Respiratory Rate 16 17 Blood Pressure 146/84 H 145/95 H Pulse Oximetry 100 100 06/21/18 11:58 06/21/18 12:30 06/21/18 12:45 Temperature 98.2 F 98.1 F Pulse Rate 91 H 84 84 Respiratory Rate 16 16 Blood Pressure 134/86 131/84 Pulse Oximetry 98 98 06/21/18 13:00 06/21/18 13:15 06/21/18 13:30 Temperature 98.4 F 98.4 F 98.3 F Pulse Rate 84 82 81 Respiratory Rate 16 16 16 Blood Pressure 127/81 135/81 131/97 H Pulse Oximetry 98 100 100 06/21/18 14:30 06/21/18 15:00 06/21/18 15:30 Temperature 98.3 F 98.3 F Pulse Rate 84 63 85 Respiratory Rate 16 17 Blood Pressure 133/82 126/79 Pulse Oximetry 99 100 98 06/21/18 16:00 06/21/18 17:00 Temperature Pulse Rate 82 94 H Respiratory Rate Blood Pressure Pulse Oximetry Intake & Output 06/20/18 06/21/18 06/21/18 19:59 06:59 18:59 Intake Total 1300 / 1300 Output Total 1650 / 1650 Balance -350 / -350 Weight Intake: IV 500 / 500 D5W/1/2 NS Inj 1,000 ML @ 40 mls/hr IV.CONT .Q24H JOSE L Rx#: [id number] Thymoglobulin Inj 114 MG In NS 500 / 500 Inj 500 ML @ 125 mls/hr IV.SIG ONCE ONE Rx#:[id number] SoluMEDROL Inj 90 MG In NS Inj 100 ML @ 200 mls/hr IV.SIG ONCE ONE Rx#:[id number] Oral 800 / 800 Output: Urine Amount (Catheter) 1649 Indwelling Urethral Catheter 1649 Other: Date of Last Bowel Movement # Bowel Movements Narrative: General patient in no acute distress HEENT extraocular movements are intact, clear oropharyngeal mucosa, no JVD Cardiovascular S1-S2 audible, RRR, no murmurs rubs or gallops Respiratory clear to auscultation bilaterally Abdomen soft, nontender, nondistended, status post kidney transplant incision Extremities no edema Neuro alert oriented x3 - Urinary Catheter Management Indwelling Urethral Catheter Cath placed during this visit: yes Urethral indwelling: Yes Reason for continuing: Hourly intake/output Insertion date: 06/18/18 Insertion time: 13:00 Assessment and Plan - Assessment (1) End stage renal disease Code(s): N18.6 - End stage renal disease Status: Chronic (2) Hypertension Code(s): I10 - Essential (primary) hypertension Status: Chronic - Plan Patient status post kidney transplant nonoliguric Doing well Creatinine declining 2.7 Continue with Thymoglobulin On tacrolimus 3 mg twice a day and CellCept 1000 twice daily Start potassium phosphate follow Labs BP stable on Labetalol
[2018-06-21] MEDS: Potassium Phosphate 500 MG Soluble Tablet PO SCH (21:06)
[2018-06-22 05:50] LABS: Baso % (Auto) 0.2 % (0.0-2.0); Eos % (Auto) 0.2 % (0.0-4.0); Hematocrit 22.2 % (39.0-51.0); Hemoglobin 7.6 gm/dL (13.0-17.0); Lymph # (Auto) 0.1 th/mm3 (1.0-4.8); Lymph % (Auto) 2.9 % (9.0-44.0); Mean Corpuscular HGB Conc 34.3 % (32.0-36.0); Mean Corpuscular Volume 90.1 fL (80.0-100.0); Mean Platelet Volume 8.5 fL (7.0-11.0); Mono # (Auto) 0.1 th/mm3 (0.0-0.9); Mono % (Auto) 6.3 % (0.0-8.0); Neut # (Auto) 1.6 th/mm3 (1.8-7.7); Neut % (Auto) 90.4 % (16.0-70.0); Platelet Count 120 th/mm3 (150-450); Red Blood Count 2.46 mil/mm3 (4.50-5.90); Red Cell Distribution Width 16.1 % (11.6-17.2); White Blood Count 1.8 th/mm3 (4.0-11.0)
[2018-06-22 06:15] LABS: Calcium 8.7 mg/dL (8.5-10.1); Carbon Dioxide 29.4 meq/L (21.0-32.0); Magnesium 1.6 mg/dL (1.5-2.5); Phosphorus 0.9 mg/dL (2.5-4.9); Potassium 3.7 meq/L (3.5-5.1)
--- NOTE | 2018-06-22 07:55 | P.PNIM ---
Subjective Interval history: f/u; s/p kidney transplant in no acute distress. pain is controlled. no dizziness or sob. no fever. d/w the RN. Physical Exam Vital signs: Vital Signs 06/21/18 08:00 06/21/18 10:00 06/21/18 11:00 Temperature 98.5 F 98.2 F Pulse Rate 89 90 81 Respiratory Rate 16 17 Blood Pressure 146/84 H 145/95 H Pulse Oximetry 100 100 06/21/18 11:58 06/21/18 12:30 06/21/18 12:45 Temperature 98.2 F 98.1 F Pulse Rate 91 H 84 84 Respiratory Rate 16 16 Blood Pressure 134/86 131/84 Pulse Oximetry 98 98 06/21/18 13:00 06/21/18 13:15 06/21/18 13:30 Temperature 98.4 F 98.4 F 98.3 F Pulse Rate 84 82 81 Respiratory Rate 16 16 16 Blood Pressure 127/81 135/81 131/97 H Pulse Oximetry 98 100 100 06/21/18 14:30 06/21/18 15:00 06/21/18 15:30 Temperature 98.3 F 98.3 F Pulse Rate 84 63 85 Respiratory Rate 16 17 Blood Pressure 133/82 126/79 Pulse Oximetry 99 100 98 06/21/18 16:00 06/21/18 17:00 06/21/18 17:56 Temperature Pulse Rate 82 94 H 96 H Respiratory Rate Blood Pressure Pulse Oximetry 06/21/18 19:00 06/21/18 20:00 06/21/18 21:00 Temperature 98.6 F Pulse Rate 98 H 102 H 108 H Respiratory Rate 16 Blood Pressure 133/83 Pulse Oximetry 99 06/21/18 22:00 06/21/18 23:00 06/22/18 00:00 Temperature 98.7 F Pulse Rate 124 H 90 84 Respiratory Rate 16 Blood Pressure 121/79 Pulse Oximetry 98 06/22/18 01:00 06/22/18 02:00 06/22/18 03:00 Temperature 98.1 F Pulse Rate 90 88 93 H Respiratory Rate 16 Blood Pressure 146/87 H Pulse Oximetry 100 06/22/18 04:00 06/22/18 05:00 06/22/18 06:00 Temperature Pulse Rate 92 H 92 H 98 H Respiratory Rate Blood Pressure Pulse Oximetry 06/22/18 07:00 Temperature Pulse Rate 92 H Respiratory Rate Blood Pressure Pulse Oximetry Intake & Output 06/21/18 06/22/18 06/22/18 18:59 06:59 18:59 Intake Total 1300 / 1300 Output Total 1650 / 1650 Balance -350 / -350 Weight 81 kg Intake: IV 500 / 500 Thymoglobulin Inj 114 MG In NS 500 / 500 Inj 500 ML @ 125 mls/hr IV.SIG ONCE ONE Rx#:[id number] Oral 800 / 800 Output: Urine Amount (Catheter) 1650 / 1650 Indwelling Urethral Catheter 1650 / 1650 Other: Date of Last Bowel Movement 06/21/18 - Constitutional no acute distress - Routine Respiratory Exam Present: CTA bilaterally - Routine Cardiovascular Exam Present: RRR - Routine Abdominal Exam Present: soft - Routine Extremities Exam Comments: no pedal edema. - Routine Neurological Exam Present: alert, oriented X3 - Urinary Catheter Management Indwelling Urethral Catheter Cath placed during this visit: yes Urethral indwelling: Yes Reason for continuing: Hourly intake/output Insertion date: 06/18/18 Insertion time: 13:00 Results - Labs CBC & Chem 7: 06/22/18 05:00 06/22/18 05:00 Laboratory Results - last 24 hr 06/21/18 06/21/18 06/22/18 05:00 09:14 05:00 CBC w Diff WBC 3.4 L 1.8 L Corrected WBC RBC 3.00 L 2.46 L Hgb 9.3 L D 7.6 L Hct 27.2 L 22.2 L MCV 90.5 90.1 MCH 30.9 31.0 MCHC 34.2 34.3 RDW 16.1 16.1 Plt Count 164 120 L MPV 8.8 8.5 Prelim Diff (Auto) Slide review pending Immature Gran % (Auto) Neut % (Auto) 92.3 H 90.4 H Lymph % (Auto) 1.0 L 2.9 L [place] % (Auto) 6.5 6.3 Eos % (Auto) 0.1 0.2 Baso % (Auto) 0.1 0.2 Immature Gran # (Auto) Neut # (Auto) 3.1 1.6 L Lymph # (Auto) 0.0 L 0.1 L [place] # (Auto) 0.2 0.1 Eos # (Auto) 0.0 0.0 Baso # (Auto) 0.0 0.0 WBC Differential . Diff Scan Seg Neuts % (Manual) Band Neuts % (Manual) Lymphocytes % (Manual) Atypical Lymphs % (Man) Monocytes % (Manual) Eosinophils % (Manual) Basophils % (Manual) Metamyelocytes % (Man) Myelocytes % (Man) Promyelocytes % (Man) Blast Cells % (Manual) Plasma Cell % (Manual) Other Cells % Abs Neuts (Manual) Nucleated RBCs/100 WBC Differential Comment Auto diff final . Hypersegmented Neuts Smudge Cells Toxic Granulation Toxic Vacuolation Dohle Bodies Platelet Estimate Platelet Morphology RBC Morphology Dimorphic RBCs Polychromasia Basophilic Stippling Spherocytes Pappenheimer Bodies Sickle Cells Target Cells Tear Drop Cells Ovalocytes Stomatocytes Helmet Cells Eduardo-Barwick Bodies [place] Cells Acanthocytes (Spur) Rouleaux Keratocytes Hematology Comments Sodium Potassium Chloride Carbon Dioxide Anion Gap BUN Creatinine Estimated GFR Random Glucose Calcium Phosphorus Magnesium Tacrolimus Less than 2.0 L 06/22/18 06/22/18 05:00 05:00 CBC w Diff Cancelled WBC Cancelled Corrected WBC Cancelled RBC Cancelled Hgb Cancelled Hct Cancelled MCV Cancelled MCH Cancelled MCHC Cancelled RDW Cancelled Plt Count Cancelled MPV Cancelled Prelim Diff (Auto) Cancelled Immature Gran % (Auto) Cancelled Neut % (Auto) Cancelled Lymph % (Auto) Cancelled [place] % (Auto) Cancelled Eos % (Auto) Cancelled Baso % (Auto) Cancelled Immature Gran # (Auto) Cancelled Neut # (Auto) Cancelled Lymph # (Auto) Cancelled [place] # (Auto) Cancelled Eos # (Auto) Cancelled Baso # (Auto) Cancelled WBC Differential Cancelled Diff Scan Cancelled Seg Neuts % (Manual) Cancelled Band Neuts % (Manual) Cancelled Lymphocytes % (Manual) Cancelled Atypical Lymphs % (Man) Cancelled Monocytes % (Manual) Cancelled Eosinophils % (Manual) Cancelled Basophils % (Manual) Cancelled Metamyelocytes % (Man) Cancelled Myelocytes % (Man) Cancelled Promyelocytes % (Man) Cancelled Blast Cells % (Manual) Cancelled Plasma Cell % (Manual) Cancelled Other Cells % Cancelled Abs Neuts (Manual) Cancelled Nucleated RBCs/100 WBC Cancelled Differential Comment Cancelled Hypersegmented Neuts Cancelled Smudge Cells Cancelled Toxic Granulation Cancelled Toxic Vacuolation Cancelled Dohle Bodies Cancelled Platelet Estimate Cancelled Platelet Morphology Cancelled RBC Morphology Cancelled Dimorphic RBCs Cancelled Polychromasia Cancelled Basophilic Stippling Cancelled Spherocytes Cancelled Pappenheimer Bodies Cancelled Sickle Cells Cancelled Target Cells Cancelled Tear Drop Cells Cancelled Ovalocytes Cancelled Stomatocytes Cancelled Helmet Cells Cancelled Eduardo-Barwick Bodies Cancelled [place] Cells Cancelled Acanthocytes (Spur) Cancelled Rouleaux Cancelled Keratocytes Cancelled Hematology Comments Cancelled Sodium 143 Potassium 3.7 Chloride 107 Carbon Dioxide 29.4 Anion Gap 7 BUN 23 H Creatinine 2.01 H Estimated GFR 44 L Random Glucose 97 Calcium 8.7 Phosphorus 0.9 L Magnesium 1.6 Tacrolimus Assessment and Plan - Plan End-stage renal disease- was on hemodialysis -Left donor kidney transplant to right iliac fossa -Continue CellCept and Prograf Anemia; post-op patient is hemodynamically stable- will continue to monitor. Hypertension -Hold amlodipine, labetalol for now. Hypophosphatemia; will replace and monitor as needed. Dyslipidemia -Continue Lipitor 20 mg p.o. daily. Full code. SCDs. Discharge Planning: when cleared by transplant surgery.
--- NOTE | 2018-06-22 08:55 | P.PNNP ---
Subjective Interval history: Patient is doing well has Moore catheter taken out Physical Exam Vital signs: Vital Signs 06/21/18 10:00 06/21/18 11:00 06/21/18 11:58 Temperature 98.2 F Pulse Rate 90 81 91 H Respiratory Rate 17 Blood Pressure 145/95 H Pulse Oximetry 100 06/21/18 12:30 06/21/18 12:45 06/21/18 13:00 Temperature 98.2 F 98.1 F 98.4 F Pulse Rate 84 84 84 Respiratory Rate 16 16 16 Blood Pressure 134/86 131/84 127/81 Pulse Oximetry 98 98 98 06/21/18 13:15 06/21/18 13:30 06/21/18 14:30 Temperature 98.4 F 98.3 F 98.3 F Pulse Rate 82 81 84 Respiratory Rate 16 16 16 Blood Pressure 135/81 131/97 H 133/82 Pulse Oximetry 100 100 99 06/21/18 15:00 06/21/18 15:30 06/21/18 16:00 Temperature 98.3 F Pulse Rate 63 85 82 Respiratory Rate 17 Blood Pressure 126/79 Pulse Oximetry 100 98 06/21/18 17:00 06/21/18 17:56 06/21/18 19:00 Temperature 98.6 F Pulse Rate 94 H 96 H 98 H Respiratory Rate 16 Blood Pressure 133/83 Pulse Oximetry 99 06/21/18 20:00 06/21/18 21:00 06/21/18 22:00 Temperature Pulse Rate 102 H 108 H 124 H Respiratory Rate Blood Pressure Pulse Oximetry 06/21/18 23:00 06/22/18 00:00 06/22/18 01:00 Temperature 98.7 F Pulse Rate 90 84 90 Respiratory Rate 16 Blood Pressure 121/79 Pulse Oximetry 98 06/22/18 02:00 06/22/18 03:00 06/22/18 04:00 Temperature 98.1 F Pulse Rate 88 93 H 92 H Respiratory Rate 16 Blood Pressure 146/87 H Pulse Oximetry 100 06/22/18 05:00 06/22/18 06:00 06/22/18 07:00 Temperature 99.0 F Pulse Rate 92 H 98 H 103 H Respiratory Rate 16 Blood Pressure 123/78 Pulse Oximetry 99 Intake & Output 06/21/18 06/22/18 06/22/18 18:59 06:59 18:59 Intake Total 1300 / 1300 820 / 820 Output Total 1650 / 1650 2700 / 2700 Balance -350 / -350 -1880 / -1880 Weight 81 kg Intake: IV 500 / 500 Thymoglobulin Inj 114 MG In NS 500 / 500 Inj 500 ML @ 125 mls/hr IV.SIG ONCE ONE Rx#:[id number] Oral 800 / 800 820 / 820 Output: Urine 2300 / 2300 Urine/Stool Mix 400 / 400 Urine Amount (Catheter) 1650 / 1650 Indwelling Urethral Catheter 165 / 1650 Other: Date of Last Bowel Movement 06/21/18 Narrative: General patient in no acute distress HEENT extraocular movements are intact, clear oropharyngeal mucosa, no JVD Cardiovascular S1-S2 audible, RRR, no murmurs rubs or gallops Respiratory clear to auscultation bilaterally Abdomen soft, nontender, nondistended, status post kidney transplant incision Extremities no edema Neuro alert oriented x3 - Urinary Catheter Management Indwelling Urethral Catheter Cath placed during this visit: yes Urethral indwelling: Yes Reason for continuing: Hourly intake/output Insertion date: 06/18/18 Insertion time: 13:00 Assessment and Plan - Assessment (1) End stage renal disease Code(s): N18.6 - End stage renal disease Status: Chronic (2) Hypertension Code(s): I10 - Essential (primary) hypertension Status: Chronic - Plan Patient status post kidney transplant nonoliguric Doing well Creatinine declining 2.01 Continue with Thymoglobulin On tacrolimus 3 mg twice a day and CellCept 1000 twice daily on potassium phosphate, potassium is low WBC 1.8 follow Labs BP stable on Labetalol
--- NOTE | 2018-06-22 09:17 | P.PNTS ---
Subjective Interval history: No new c/o. Adele po well. + BM. Physical Exam Vital signs: Vital Signs 06/21/18 10:00 06/21/18 11:00 06/21/18 11:58 Temperature 98.2 F Pulse Rate 90 81 91 H Respiratory Rate 17 Blood Pressure 145/95 H Pulse Oximetry 100 06/21/18 12:30 06/21/18 12:45 06/21/18 13:00 Temperature 98.2 F 98.1 F 98.4 F Pulse Rate 84 84 84 Respiratory Rate 16 16 16 Blood Pressure 134/86 131/84 127/81 Pulse Oximetry 98 98 98 06/21/18 13:15 06/21/18 13:30 06/21/18 14:30 Temperature 98.4 F 98.3 F 98.3 F Pulse Rate 82 81 84 Respiratory Rate 16 16 16 Blood Pressure 135/81 131/97 H 133/82 Pulse Oximetry 100 100 99 06/21/18 15:00 06/21/18 15:30 06/21/18 16:00 Temperature 98.3 F Pulse Rate 63 85 82 Respiratory Rate 17 Blood Pressure 126/79 Pulse Oximetry 100 98 06/21/18 17:00 06/21/18 17:56 06/21/18 19:00 Temperature 98.6 F Pulse Rate 94 H 96 H 98 H Respiratory Rate 16 Blood Pressure 133/83 Pulse Oximetry 99 06/21/18 20:00 06/21/18 21:00 06/21/18 22:00 Temperature Pulse Rate 102 H 108 H 124 H Respiratory Rate Blood Pressure Pulse Oximetry 06/21/18 23:00 06/22/18 00:00 06/22/18 01:00 Temperature 98.7 F Pulse Rate 90 84 90 Respiratory Rate 16 Blood Pressure 121/79 Pulse Oximetry 98 06/22/18 02:00 06/22/18 03:00 06/22/18 04:00 Temperature 98.1 F Pulse Rate 88 93 H 92 H Respiratory Rate 16 Blood Pressure 146/87 H Pulse Oximetry 100 06/22/18 05:00 06/22/18 06:00 06/22/18 07:00 Temperature 99.0 F Pulse Rate 92 H 98 H 103 H Respiratory Rate 16 Blood Pressure 123/78 Pulse Oximetry 99 Intake & Output 06/21/18 06/22/18 06/22/18 18:59 06:59 18:59 Intake Total 1300 / 1300 820 / 820 Output Total 1650 / 1650 2700 / 2700 Balance -350 / -350 -1880 / -1880 Weight 81 kg Intake: IV 500 / 500 Thymoglobulin Inj 114 MG In NS 500 / 500 Inj 500 ML @ 125 mls/hr IV.SIG ONCE ONE Rx#:[id number] Oral 800 / 800 820 / 820 Output: Urine 2300 / 2300 Urine/Stool Mix 400 / 400 Urine Amount (Catheter) 1650 / 1650 Indwelling Urethral Catheter 1650 / 1650 Other: Date of Last Bowel Movement 06/21/18 - Constitutional no acute distress - Routine HEENT Exam Head: Present: normocephalic, atraumatic Eye: Present: EOMI ENT: Present: mucous membranes moist - Routine Respiratory Exam Present: CTA bilaterally - Routine Cardiovascular Exam Present: RRR, S1, S2 - Routine Abdominal Exam Present: soft, normoactive bowel sounds - Routine Extremities Exam Present: pulses intact Comments: Calves soft NT bilaterally - Routine Skin Exam Present: intact - Routine Neurological Exam Present: alert, oriented X3 - Detailed Neurological Exam: Coma Scale Verbal Response: Oriented - Routine Psychiatric Exam Present: normal affect, normal thought process - Urinary Catheter Management Indwelling Urethral Catheter Cath placed during this visit: yes, but since removed, this AM Urethral indwelling: No Insertion date: 06/18/18 Insertion time: 13:00 Results - Labs CBC & Chem 7: 06/22/18 05:00 06/22/18 05:00 Laboratory Results - last 24 hr 06/21/18 06/21/18 06/22/18 05:00 09:14 05:00 CBC w Diff WBC 3.4 L 1.8 L Corrected WBC RBC 3.00 L 2.46 L Hgb 9.3 L D 7.6 L Hct 27.2 L 22.2 L MCV 90.5 90.1 MCH 30.9 31.0 MCHC 34.2 34.3 RDW 16.1 16.1 Plt Count 164 120 L MPV 8.8 8.5 Prelim Diff (Auto) Slide review pending Immature Gran % (Auto) Neut % (Auto) 92.3 H 90.4 H Lymph % (Auto) 1.0 L 2.9 L [place] % (Auto) 6.5 6.3 Eos % (Auto) 0.1 0.2 Baso % (Auto) 0.1 0.2 Immature Gran # (Auto) Neut # (Auto) 3.1 1.6 L Lymph # (Auto) 0.0 L 0.1 L [place] # (Auto) 0.2 0.1 Eos # (Auto) 0.0 0.0 Baso # (Auto) 0.0 0.0 WBC Differential . Diff Scan Seg Neuts % (Manual) Band Neuts % (Manual) Lymphocytes % (Manual) Atypical Lymphs % (Man) Monocytes % (Manual) Eosinophils % (Manual) Basophils % (Manual) Metamyelocytes % (Man) Myelocytes % (Man) Promyelocytes % (Man) Blast Cells % (Manual) Plasma Cell % (Manual) Other Cells % Abs Neuts (Manual) Nucleated RBCs/100 WBC Differential Comment Auto diff final . Hypersegmented Neuts Smudge Cells Toxic Granulation Toxic Vacuolation Dohle Bodies Platelet Estimate Platelet Morphology RBC Morphology Dimorphic RBCs Polychromasia Basophilic Stippling Spherocytes Pappenheimer Bodies Sickle Cells Target Cells Tear Drop Cells Ovalocytes Stomatocytes Helmet Cells Eduardo-Time Bodies [place] Cells Acanthocytes (Spur) Rouleaux Keratocytes Hematology Comments Sodium Potassium Chloride Carbon Dioxide Anion Gap BUN Creatinine Estimated GFR Random Glucose Calcium Phosphorus Magnesium Tacrolimus Less than 2.0 L 06/22/18 06/22/18 05:00 05:00 CBC w Diff Cancelled WBC Cancelled Corrected WBC Cancelled RBC Cancelled Hgb Cancelled Hct Cancelled MCV Cancelled MCH Cancelled MCHC Cancelled RDW Cancelled Plt Count Cancelled MPV Cancelled Prelim Diff (Auto) Cancelled Immature Gran % (Auto) Cancelled Neut % (Auto) Cancelled Lymph % (Auto) Cancelled [place] % (Auto) Cancelled Eos % (Auto) Cancelled Baso % (Auto) Cancelled Immature Gran # (Auto) Cancelled Neut # (Auto) Cancelled Lymph # (Auto) Cancelled [place] # (Auto) Cancelled Eos # (Auto) Cancelled Baso # (Auto) Cancelled WBC Differential Cancelled Diff Scan Cancelled Seg Neuts % (Manual) Cancelled Band Neuts % (Manual) Cancelled Lymphocytes % (Manual) Cancelled Atypical Lymphs % (Man) Cancelled Monocytes % (Manual) Cancelled Eosinophils % (Manual) Cancelled Basophils % (Manual) Cancelled Metamyelocytes % (Man) Cancelled Myelocytes % (Man) Cancelled Promyelocytes % (Man) Cancelled Blast Cells % (Manual) Cancelled Plasma Cell % (Manual) Cancelled Other Cells % Cancelled Abs Neuts (Manual) Cancelled Nucleated RBCs/100 WBC Cancelled Differential Comment Cancelled Hypersegmented Neuts Cancelled Smudge Cells Cancelled Toxic Granulation Cancelled Toxic Vacuolation Cancelled Dohle Bodies Cancelled Platelet Estimate Cancelled Platelet Morphology Cancelled RBC Morphology Cancelled Dimorphic RBCs Cancelled Polychromasia Cancelled Basophilic Stippling Cancelled Spherocytes Cancelled Pappenheimer Bodies Cancelled Sickle Cells Cancelled Target Cells Cancelled Tear Drop Cells Cancelled Ovalocytes Cancelled Stomatocytes Cancelled Helmet Cells Cancelled Deuardo-Time Bodies Cancelled [place] Cells Cancelled Acanthocytes (Spur) Cancelled Rouleaux Cancelled Keratocytes Cancelled Hematology Comments Cancelled Sodium 143 Potassium 3.7 Chloride 107 Carbon Dioxide 29.4 Anion Gap 7 BUN 23 H Creatinine 2.01 H Estimated GFR 44 L Random Glucose 97 Calcium 8.7 Phosphorus 0.9 L Magnesium 1.6 Tacrolimus Assessment and Plan - Plan Mr Quinton Galvan has ESRD secondary to htn and was admitted for donor kidney transplantation. POD #4. S/P donor kidney transplant to right iliac fossa. Allograft function: immediate: Immunosuppression: Thymo induction; Maint: steroids + Cellcept + Tacrolimus Patient overall doing well. Good UOP overnight. Creatinine continues to decrease. Flomax . Moore removed..Tolerating regular diet. WBC low - Hold valcyte/bactrim. BP stable on labetalol .
[2018-06-22 09:46] LABS: Eosinophils 1 % (0-4); Lymphocytes 6 % (9-44); Monocytes 4 % (0-8); Platelet Morphology Normal (Normal); Tallied Nucleated RBC 2 (0-0)
[2018-06-22] MEDS: Calcitriol 0.25 MCG Capsule PO SCH (09:58)
[2018-06-22] MEDS: Docusate Sodium 100 MG Capsule PO SCH ×2 (09:58→21:05)
[2018-06-22] MEDS: Labetalol 200 MG Tablet PO SCH ×3 (09:58→23:20)
[2018-06-22] MEDS: Nystatin Liq 500,000 UNIT/5 ML UDC SWISH-SWAL SCH ×4 (09:59→21:08)
[2018-06-22] MEDS: Potassium Phosphate 500 MG Soluble Tablet PO SCH ×2 (09:59→21:03)
[2018-06-22] MEDS: Sodium Chloride 0.9% 2 ML Flush BID IV.FLUSH SCH ×2 (09:59→21:07)
[2018-06-22] MEDS: Vitamin B Complex/Vit C/Folic Tablet PO SCH (09:59)
[2018-06-22] MEDS ORDERED: Potassium Phosphate Inj 30 MMOL in Sodium Chlor 0.9% Inj 250 ML IV.SIG ONE (10:00)
[2018-06-22] MEDS: amLODIPine 10 MG Tablet PO SCH (10:02)
[2018-06-22] MEDS: Magnesium Oxide 400 MG Tablet PO SCH ×2 (10:02→21:03)
[2018-06-22 10:16] LABS: Hematocrit 22.8 % (39.0-51.0); Hemoglobin 7.8 gm/dL (13.0-17.0)
[2018-06-22 10:20] LABS: Reticulocyte Percent 0.8 % (0.4-3.0)
[2018-06-22 10:41] LABS: % Iron Saturation 10.5 % (20-50)
[2018-06-22] MEDS ORDERED: MethylPREDNISolone Sod Succinate Inj 40 MG/ML Vial IV.PUSH ONE (12:00)
[2018-06-22] MEDS ORDERED: Iron Sucrose Inj 200 MG in Sodium Chlor 0.9% Inj 100 ML IV.SIG ONE (13:00)
[2018-06-22] MEDS: Pantoprazole Inj 40 MG Vial IV.PUSH SCH (13:51)
[2018-06-23 05:24] LABS: Baso % (Auto) 0.2 % (0.0-2.0); Eos % (Auto) 0.2 % (0.0-4.0); Hematocrit 21.7 % (39.0-51.0); Hemoglobin 7.2 gm/dL (13.0-17.0); Lymph % (Auto) 1.4 % (9.0-44.0); Mean Corpuscular HGB Conc 33.3 % (32.0-36.0); Mean Corpuscular Hemoglobin 30.3 pg (27.0-34.0); Mean Platelet Volume 8.9 fL (7.0-11.0); Mono # (Auto) 0.3 th/mm3 (0.0-0.9); Mono % (Auto) 9.8 % (0.0-8.0); Neut # (Auto) 2.9 th/mm3 (1.8-7.7); Neut % (Auto) 88.4 % (16.0-70.0); Platelet Count 135 th/mm3 (150-450); Red Blood Count 2.38 mil/mm3 (4.50-5.90); Red Cell Distribution Width 16.3 % (11.6-17.2); White Blood Count 3.3 th/mm3 (4.0-11.0)
[2018-06-23 05:46] LABS: Calcium 8.9 mg/dL (8.5-10.1); Carbon Dioxide 30.2 meq/L (21.0-32.0); Magnesium 1.5 mg/dL (1.5-2.5); Phosphorus 1.4 mg/dL (2.5-4.9); Potassium 3.8 meq/L (3.5-5.1)
--- NOTE | 2018-06-23 07:48 | P.PNIM ---
Subjective Interval history: f/u; s/p kidney transplant in no acute distress. pain is controlled. no sob or dizziness. no fever. Physical Exam Vital signs: Vital Signs 06/22/18 08:00 06/22/18 09:00 06/22/18 10:00 Temperature Pulse Rate 115 H 115 H 115 H Respiratory Rate Blood Pressure Pulse Oximetry 06/22/18 11:00 06/22/18 15:00 06/22/18 18:00 Temperature 98.6 F 98.7 F Pulse Rate 92 H 101 H 98 H Respiratory Rate 17 16 Blood Pressure 117/75 117/75 Pulse Oximetry 97 97 06/22/18 19:00 06/22/18 19:51 06/22/18 20:00 Temperature 99.6 F Pulse Rate 99 H 93 H 96 H Respiratory Rate 18 Blood Pressure 123/71 Pulse Oximetry 98 06/22/18 21:00 06/22/18 22:00 06/22/18 23:00 Temperature 98.7 F Pulse Rate 98 H 90 85 Respiratory Rate 16 Blood Pressure 141/86 H Pulse Oximetry 99 06/23/18 00:00 06/23/18 01:00 06/23/18 02:00 Temperature Pulse Rate 86 82 83 Respiratory Rate Blood Pressure Pulse Oximetry 06/23/18 03:00 06/23/18 04:00 06/23/18 05:00 Temperature 98.4 F Pulse Rate 79 78 79 Respiratory Rate 16 Blood Pressure 124/76 Pulse Oximetry 98 06/23/18 06:00 06/23/18 07:00 Temperature 99.0 F Pulse Rate 82 84 Respiratory Rate 17 Blood Pressure 133/85 Pulse Oximetry 99 Intake & Output 06/22/18 06/23/18 06/23/18 18:59 06:59 18:59 Intake Total 980 / 980 350 / 350 Output Total 900 / 900 500 / 500 Balance 80 / 80 -150 / -150 Weight 80 kg Intake: IV 260 / 260 110 / 110 Venofer Inj 200 MG In NS Inj 110 / 110 100 ML @ 110 mls/hr IV.SIG ONCE ONE Rx#:[id number] Potassium Phosphate Inj 30 MMOL 260 / 260 In NS Inj 250 ML @ 43.333 mls/ hr IV.SIG ONCE ONE Rx#:[id number] Oral 720 / 720 240 / 240 Output: Urine 900 / 900 500 / 500 Other: # Voids 3 Date of Last Bowel Movement 06/22/18 - Constitutional no acute distress - Routine Respiratory Exam Present: CTA bilaterally - Routine Cardiovascular Exam Present: RRR - Routine Abdominal Exam Present: soft - Routine Extremities Exam Comments: no pedal edema. - Routine Neurological Exam Present: alert, oriented X3 - Urinary Catheter Management Indwelling Urethral Catheter Cath placed during this visit: yes Urethral indwelling: No Reason for continuing: Hourly intake/output Insertion date: 06/18/18 Insertion time: 13:00 Results - Labs CBC & Chem 7: 06/23/18 04:15 06/23/18 04:15 Laboratory Results - last 24 hr 06/22/18 06/22/18 06/22/18 05:00 05:00 09:45 WBC RBC Hgb Hct MCV MCH MCHC RDW Plt Count MPV Prelim Diff (Auto) Neut % (Auto) Lymph % (Auto) [place] % (Auto) Eos % (Auto) Baso % (Auto) Neut # (Auto) Lymph # (Auto) [place] # (Auto) Eos # (Auto) Baso # (Auto) WBC Differential Manual diff final Seg Neuts % (Manual) 59 Band Neuts % (Manual) 30 H Lymphocytes % (Manual) 6 L Monocytes % (Manual) 4 Eosinophils % (Manual) 1 Abs Neuts (Manual) 1.6 L Nucleated RBCs/100 WBC 2 H Differential Comment Platelet Estimate Low L Platelet Morphology Normal Retic Count Absolute Retic Sodium Potassium Chloride Carbon Dioxide Anion Gap BUN Creatinine Estimated GFR Random Glucose Calcium Phosphorus Magnesium Iron 18 L TIBC 171 L % Saturation 10.5 L Tacrolimus Less than 2.0 L 06/22/18 06/22/18 06/23/18 09:45 09:45 04:15 WBC 3.3 L D RBC 2.38 L Hgb 7.8 L 7.2 L Hct 22.8 L 21.7 L MCV 91.0 MCH 30.3 MCHC 33.3 RDW 16.3 Plt Count 135 L MPV 8.9 Prelim Diff (Auto) Slide review pending Neut % (Auto) 88.4 H Lymph % (Auto) 1.4 L [place] % (Auto) 9.8 H Eos % (Auto) 0.2 Baso % (Auto) 0.2 Neut # (Auto) 2.9 Lymph # (Auto) 0.0 L [place] # (Auto) 0.3 Eos # (Auto) 0.0 Baso # (Auto) 0.0 WBC Differential Seg Neuts % (Manual) Band Neuts % (Manual) Lymphocytes % (Manual) Monocytes % (Manual) Eosinophils % (Manual) Abs Neuts (Manual) Nucleated RBCs/100 WBC Differential Comment . Platelet Estimate Platelet Morphology Retic Count 0.8 Absolute Retic 21.3 Sodium Potassium Chloride Carbon Dioxide Anion Gap BUN Creatinine Estimated GFR Random Glucose Calcium Phosphorus Magnesium Iron TIBC % Saturation Tacrolimus 06/23/18 04:15 WBC RBC Hgb Hct MCV MCH MCHC RDW Plt Count MPV Prelim Diff (Auto) Neut % (Auto) Lymph % (Auto) [place] % (Auto) Eos % (Auto) Baso % (Auto) Neut # (Auto) Lymph # (Auto) [place] # (Auto) Eos # (Auto) Baso # (Auto) WBC Differential Seg Neuts % (Manual) Band Neuts % (Manual) Lymphocytes % (Manual) Monocytes % (Manual) Eosinophils % (Manual) Abs Neuts (Manual) Nucleated RBCs/100 WBC Differential Comment Platelet Estimate Platelet Morphology Retic Count Absolute Retic Sodium 142 Potassium 3.8 Chloride 109 H Carbon Dioxide 30.2 Anion Gap 3 L BUN 19 H Creatinine 1.68 H Estimated GFR 54 L Random Glucose 96 Calcium 8.9 Phosphorus 1.4 L Magnesium 1.5 Iron TIBC % Saturation Tacrolimus Assessment and Plan - Plan End-stage renal disease- was on hemodialysis -s/p Left donor kidney transplant to right iliac fossa -Continue CellCept and Prograf Anemia; post-op patient is hemodynamically stable- received iron supplement. will continue to monitor. Hypertension -on amlodipine, labetalol for now. Hypophosphatemia; will replace and monitor as needed. Dyslipidemia -Continue Lipitor 20 mg p.o. daily. Full code. SCDs. Discharge Planning: when cleared by transplant surgery.
[2018-06-23 08:28] LABS: Lymphocytes 2 % (9-44); Metamyelocytes 1 % (0-1); Monocytes 3 % (0-8); Myelocytes 1 % (0-0); Platelet Morphology Normal (Normal); Promyelocyte 2 % (0-0)
[2018-06-23] MEDS ORDERED: Iron Sucrose Inj 200 MG in Sodium Chlor 0.9% Inj 100 ML IV.SIG ONE (09:00)
[2018-06-23] MEDS ORDERED: Potassium Phosphate Inj 15 MMOL in Sodium Chlor 0.9% Inj 150 ML IV.SIG ONE (09:00)
[2018-06-23] MEDS ORDERED: predniSONE 20 MG Tablet PO ONE (09:10)
--- NOTE | 2018-06-23 09:25 | P.PNNP ---
Subjective Interval history: doing well denies complaints Physical Exam Vital signs: Vital Signs 06/22/18 10:00 06/22/18 11:00 06/22/18 15:00 Temperature 98.6 F 98.7 F Pulse Rate 115 H 92 H 101 H Respiratory Rate 17 16 Blood Pressure 117/75 117/75 Pulse Oximetry 97 97 06/22/18 18:00 06/22/18 19:00 06/22/18 19:51 Temperature 99.6 F Pulse Rate 98 H 99 H 93 H Respiratory Rate 18 Blood Pressure 123/71 Pulse Oximetry 98 06/22/18 20:00 06/22/18 21:00 06/22/18 22:00 Temperature Pulse Rate 96 H 98 H 90 Respiratory Rate Blood Pressure Pulse Oximetry 06/22/18 23:00 06/23/18 00:00 06/23/18 01:00 Temperature 98.7 F Pulse Rate 85 86 82 Respiratory Rate 16 Blood Pressure 141/86 H Pulse Oximetry 99 06/23/18 02:00 06/23/18 03:00 06/23/18 04:00 Temperature 98.4 F Pulse Rate 83 79 78 Respiratory Rate 16 Blood Pressure 124/76 Pulse Oximetry 98 06/23/18 05:00 06/23/18 06:00 06/23/18 07:00 Temperature 99.0 F Pulse Rate 79 82 84 Respiratory Rate 17 Blood Pressure 133/85 Pulse Oximetry 99 Intake & Output 06/22/18 06/23/18 06/23/18 18:59 06:59 18:59 Intake Total 980 / 980 350 / 350 Output Total 900 / 900 500 / 500 Balance 80 / 80 -150 / -150 Weight 80 kg Intake: IV 260 / 260 110 / 110 Venofer Inj 200 MG In NS Inj 110 / 110 100 ML @ 110 mls/hr IV.SIG ONCE ONE Rx#:[id number] Potassium Phosphate Inj 30 MMOL 260 / 260 In NS Inj 250 ML @ 43.333 mls/ hr IV.SIG ONCE ONE Rx#:[id number] Oral 720 / 720 240 / 240 Output: Urine 900 / 900 500 / 500 Other: # Voids 3 Date of Last Bowel Movement 06/22/18 Narrative: General patient in no acute distress HEENT extraocular movements are intact, clear oropharyngeal mucosa, no JVD Cardiovascular S1-S2 audible, RRR, no murmurs rubs or gallops Respiratory clear to auscultation bilaterally Abdomen soft, nontender, nondistended, status post kidney transplant incision Extremities no edema Neuro alert oriented x3 - Urinary Catheter Management Indwelling Urethral Catheter Cath placed during this visit: yes Urethral indwelling: No Reason for continuing: Hourly intake/output Insertion date: 06/18/18 Insertion time: 13:00 Assessment and Plan - Assessment (1) End stage renal disease Code(s): N18.6 - End stage renal disease Status: Chronic (2) Hypertension Code(s): I10 - Essential (primary) hypertension Status: Chronic - Plan Patient status post kidney transplant nonoliguric Doing well Creatinine declining 1.68 On tacrolimus 5 mg twice a day and CellCept 1000 twice daily on potassium phosphate, potassium is low WBC 3.3 follow Labs BP stable on Labetalol Valcyte 450 mg daily and will be adjusted in clinic dc Amlodipine may dc fu in clinic
[2018-06-23] MEDS: Mag Sulf 1 gm/100 ml Premix 100 ML IV.SIG SCH ×2 (09:37→11:54)
[2018-06-23] MEDS: Docusate Sodium 100 MG Capsule PO SCH (09:38)
[2018-06-23] MEDS: Nystatin Liq 500,000 UNIT/5 ML UDC SWISH-SWAL SCH ×2 (09:38→12:45)
[2018-06-23] MEDS: Magnesium Oxide 400 MG Tablet PO SCH (09:38)
[2018-06-23] MEDS: Vitamin B Complex/Vit C/Folic Tablet PO SCH (09:38)
[2018-06-23] MEDS: Potassium Phosphate 500 MG Soluble Tablet PO SCH (09:39)
[2018-06-23] MEDS: Calcitriol 0.25 MCG Capsule PO SCH (09:39)
[2018-06-23] MEDS: Labetalol 200 MG Tablet PO SCH (09:39)
[2018-06-23] MEDS: Pantoprazole Inj 40 MG Vial IV.PUSH SCH (09:39)
[2018-06-23] MEDS: amLODIPine 10 MG Tablet PO SCH (09:39)
--- NOTE | 2018-06-23 09:40 | P.PNTS ---
Subjective Interval history: No new c/o. Physical Exam Vital signs: Vital Signs 06/22/18 10:00 06/22/18 11:00 06/22/18 15:00 Temperature 98.6 F 98.7 F Pulse Rate 115 H 92 H 101 H Respiratory Rate 17 16 Blood Pressure 117/75 117/75 Pulse Oximetry 97 97 06/22/18 18:00 06/22/18 19:00 06/22/18 19:51 Temperature 99.6 F Pulse Rate 98 H 99 H 93 H Respiratory Rate 18 Blood Pressure 123/71 Pulse Oximetry 98 06/22/18 20:00 06/22/18 21:00 06/22/18 22:00 Temperature Pulse Rate 96 H 98 H 90 Respiratory Rate Blood Pressure Pulse Oximetry 06/22/18 23:00 06/23/18 00:00 06/23/18 01:00 Temperature 98.7 F Pulse Rate 85 86 82 Respiratory Rate 16 Blood Pressure 141/86 H Pulse Oximetry 99 06/23/18 02:00 06/23/18 03:00 06/23/18 04:00 Temperature 98.4 F Pulse Rate 83 79 78 Respiratory Rate 16 Blood Pressure 124/76 Pulse Oximetry 98 06/23/18 05:00 06/23/18 06:00 06/23/18 07:00 Temperature 99.0 F Pulse Rate 79 82 84 Respiratory Rate 17 Blood Pressure 133/85 Pulse Oximetry 99 Intake & Output 06/22/18 06/23/18 06/23/18 18:59 06:59 18:59 Intake Total 980 / 980 350 / 350 Output Total 900 / 900 500 / 500 Balance 80 / 80 -150 / -150 Weight 80 kg Intake: IV 260 / 260 110 / 110 Venofer Inj 200 MG In NS Inj 110 / 110 100 ML @ 110 mls/hr IV.SIG ONCE ONE Rx#:[id number] Potassium Phosphate Inj 30 MMOL 260 / 260 In NS Inj 250 ML @ 43.333 mls/ hr IV.SIG ONCE ONE Rx#:[id number] Oral 720 / 720 240 / 240 Output: Urine 900 / 900 500 / 500 Other: # Voids 3 Date of Last Bowel Movement 06/22/18 - Constitutional no acute distress - Routine HEENT Exam Head: Present: normocephalic, atraumatic Eye: Present: EOMI ENT: Present: mucous membranes moist - Routine Neck Exam Present: supple - Routine Respiratory Exam Present: CTA bilaterally - Routine Cardiovascular Exam Present: RRR, S1, S2 - Routine Abdominal Exam Present: soft, normoactive bowel sounds - Routine Extremities Exam Present: pulses intact Comments: Calves soft NT B - Routine Skin Exam Present: intact - Routine Neurological Exam Present: alert, oriented X3 - Detailed Neurological Exam: Coma Scale Verbal Response: Oriented - Routine Psychiatric Exam Present: normal affect, normal thought process - Urinary Catheter Management Indwelling Urethral Catheter Cath placed during this visit: yes Urethral indwelling: No Reason for continuing: Hourly intake/output Insertion date: 06/18/18 Insertion time: 13:00 Results - Labs CBC & Chem 7: 06/23/18 04:15 06/23/18 04:15 Laboratory Results - last 24 hr 06/22/18 06/22/18 06/22/18 05:00 05:00 09:45 WBC RBC Hgb Hct MCV MCH MCHC RDW Plt Count MPV Prelim Diff (Auto) Neut % (Auto) Lymph % (Auto) [place] % (Auto) Eos % (Auto) Baso % (Auto) Neut # (Auto) Lymph # (Auto) [place] # (Auto) Eos # (Auto) Baso # (Auto) WBC Differential Manual diff final Seg Neuts % (Manual) 59 Band Neuts % (Manual) 30 H Lymphocytes % (Manual) 6 L Monocytes % (Manual) 4 Eosinophils % (Manual) 1 Metamyelocytes % (Man) Myelocytes % (Man) Promyelocytes % (Man) Abs Neuts (Manual) 1.6 L Nucleated RBCs/100 WBC 2 H Differential Comment Platelet Estimate Low L Platelet Morphology Normal Retic Count Absolute Retic Sodium Potassium Chloride Carbon Dioxide Anion Gap BUN Creatinine Estimated GFR Random Glucose Calcium Phosphorus Magnesium Iron 18 L TIBC 171 L % Saturation 10.5 L Tacrolimus Less than 2.0 L 06/22/18 06/22/18 06/23/18 09:45 09:45 04:15 WBC 3.3 L D RBC 2.38 L Hgb 7.8 L 7.2 L Hct 22.8 L 21.7 L MCV 91.0 MCH 30.3 MCHC 33.3 RDW 16.3 Plt Count 135 L MPV 8.9 Prelim Diff (Auto) Slide review pending Neut % (Auto) 88.4 H Lymph % (Auto) 1.4 L [place] % (Auto) 9.8 H Eos % (Auto) 0.2 Baso % (Auto) 0.2 Neut # (Auto) 2.9 Lymph # (Auto) 0.0 L [place] # (Auto) 0.3 Eos # (Auto) 0.0 Baso # (Auto) 0.0 WBC Differential Manual diff final Seg Neuts % (Manual) 80 H Band Neuts % (Manual) 11 H Lymphocytes % (Manual) 2 L Monocytes % (Manual) 3 Eosinophils % (Manual) Metamyelocytes % (Man) 1 Myelocytes % (Man) 1 H Promyelocytes % (Man) 2 H Abs Neuts (Manual) 3.1 Nucleated RBCs/100 WBC Differential Comment . Platelet Estimate Low L Platelet Morphology Normal Retic Count 0.8 Absolute Retic 21.3 Sodium Potassium Chloride Carbon Dioxide Anion Gap BUN Creatinine Estimated GFR Random Glucose Calcium Phosphorus Magnesium Iron TIBC % Saturation Tacrolimus 06/23/18 04:15 WBC RBC Hgb Hct MCV MCH MCHC RDW Plt Count MPV Prelim Diff (Auto) Neut % (Auto) Lymph % (Auto) [place] % (Auto) Eos % (Auto) Baso % (Auto) Neut # (Auto) Lymph # (Auto) [place] # (Auto) Eos # (Auto) Baso # (Auto) WBC Differential Seg Neuts % (Manual) Band Neuts % (Manual) Lymphocytes % (Manual) Monocytes % (Manual) Eosinophils % (Manual) Metamyelocytes % (Man) Myelocytes % (Man) Promyelocytes % (Man) Abs Neuts (Manual) Nucleated RBCs/100 WBC Differential Comment Platelet Estimate Platelet Morphology Retic Count Absolute Retic Sodium 142 Potassium 3.8 Chloride 109 H Carbon Dioxide 30.2 Anion Gap 3 L BUN 19 H Creatinine 1.68 H Estimated GFR 54 L Random Glucose 96 Calcium 8.9 Phosphorus 1.4 L Magnesium 1.5 Iron TIBC % Saturation Tacrolimus Assessment and Plan - Plan Mr Quinton Galvan has ESRD secondary to htn and was admitted for donor kidney transplantation. POD #5. S/P donor kidney transplant to right iliac fossa. Allograft function: immediate: Immunosuppression: Thymo induction; Maint: steroids + Cellcept + Tacrolimus Patient overall doing well. Good UOP overnight. Creatinine continues to decrease. Flomax . Moore removed..Tolerating regular diet. WBC improved. . BP stable on labetalol . ADMISSION: 06/18/2018 DISCHARGE: 06/23/2018 TRANSPLANT SURGEON: Vincent Kumar Jr/ Giorgio Hyatt DISCHARGE PHYSICIAN: Vincent Kumar Jr REASON FOR ADMISSION: 43 yo Male admitted for donor kindey transplantation. PROCEDURE(S)/DATE(S): donor kidney transplant on 06/18/2018. PMH/PSH: reviewed HOSPITAL COURSE: Patient was taken to surgery on 06/18/2018 and KIDNEY TRANSPLANT and ureteroneocystostomy completed on date: 06/18/2018. The renal allograft was placed in the right pelvic fossa. The donor artery and vein were anastomosed to recipient iliac vessels and ureter connected to the bladder in common fashion. A Double J stent was placed in the transplant ureter at time of surgery. The patient tolerated the procedure well. Donor: The relationship of the donor to the recipient was: -unrelated. Donation at Cardiac :No. Expanded Criteria Donor (KDPI > 85%): No. PHS Increased Risk Donor: No Induction Immunosuppression: Induction therapy utilizing Thymoglobulin was administered in the OR at the start of the case and continued daily for a total dose of 4.5 mg/kg this admission. . Maintenance Immunosuppression: Triple drug maintenance immunosuppressive therapy was initiated with use of steroids (Solu-Medrol) 500-1000 mg at time of anastomosis. Mycophenolate mofetil (CellCept) and tacrolimus (Prograf) were added in the initial 24-48 hours. Function after Transplant: An abdominal transplant US was obtained on POD : 0 demonstrating flow to the allograft and acceptable resistive indices:. Allograft function was Immediate Dialysis support was not required within the first postoperative week . Complications: None Transplant Wound: At time of discharge the transplant wound revealed good healing without drainage. Prophylaxis: CMV: Valgancyclovir (Valcyte) was initiated this admission. PCP: prophylaxis:was initiated this admission. Thrush: Nystatin oral suspension was initiated for swish and swallow after meals. PUD: A proton pump inhibitor was initiated this admission. LABORATORY: Creat 1.83 at discharge DISCHARGE MEDICATIONS: Per med sheet DISCHARGE DISPOSITION: Stable DISCHARGE INSTRUCTIONS: Mr Quinton Galvan may shower but is not to immerse his abdomen in bath, pool, sosa, or ocean water until the incision is fully healed and without drainage. The patient has been instructed to avoid lifting more than 10 lb as well as to avoid concentrated use of abdominal muscles, i.e., sit- ups, crunches, etc., for 3 months. He is to report any signs or symptoms of concern including weight gain greater than 10 lb in a 3-day period, fever, chills, nausea, vomiting, diarrhea, constipation, new or increased wound drainage, worsening allograft or flank tenderness, leg pain, chest pain, or shortness of breath. Written and verbal discharge instructions were provided to the patient. CLINIC APPOINTMENT(S): Transplant Medicine/Surgery: Mr Galvan will be seen in our Transplant Medicine Clinic for his first followup clinic appointment on 06/25/2018: He will be scheduled for removal of his peritoneal dialysis catheter several weeks subsequent to this clinic visit. Urology: Mr Galvan will be scheduled for double J ureteral stent removal in 6-8 weeks Should there be any further questions regarding this admission, please do not hesitate to call the Transplant office
[2018-06-23] MEDS: Sodium Chloride 0.9% 2 ML Flush BID IV.FLUSH SCH (09:46)
--- NOTE | 2018-06-23 16:26 | P.DS ---
Date of admission: 06/17/18 22:56 Primary care physician: Daniel Varner Brief History from admission: Mr. Galvan is a pleasant 43 y/o male with a history of anemia, ESRD on peritoneal dialysis, Hepatitis C (treated), hyperlipidemia, and hypertension who presented to the hospital for renal transplantation. He was admitted under the hospitalist service for medical management prior to surgery. The patient is seen in his hospital room and denies any fevers, chills, shortness of breath , nausea, vomiting, diarrhea, or peripheral edema. The patient reports requiring peritoneal dialysis for 4 years. DS: Medications - Discharge Medications Prescriptions: calcium carbonate 500 mg CHEW BID@, #60 tab docusate sodium [DOK] 100 mg PO BID #30 cap labetalol 200 mg PO BID #60 tab-cap magnesium oxide 400 mg PO BID #60 tab oxycodone-acetaminophen 1 tab PO Q4H PRN #30 tab PRN Reason: ABDOMINAL PAIN 1-12/25 potassium phosphate, monobasic [K-Phos Original] 500 mg PO BID #60 tab sulfamethoxazole-trimethoprim 1 tab PO MoWeFr #90 tab tamsulosin 0.4 mg PO DAILY #30 cap DS: Summary Hospital Course: End-stage renal disease- was on hemodialysis -s/p Left donor kidney transplant to right iliac fossa -Continue CellCept and Prograf Anemia; post-op patient is hemodynamically stable- received iron supplement. will continue to monitor. Hypertension -on amlodipine, labetalol for now. Hypophosphatemia; will replace and monitor as needed. Dyslipidemia -Continue Lipitor 20 mg p.o. daily. Full code. SCDs. - Time Spent with Patient Total time spent providing and/or coordinating discharge services: Less than 30 minutes - Quality: VTE Deep Vein Thrombosis/Pulmonary Embolism Present on Admission: No Exam Vital signs: Vital Signs 06/22/18 18:00 06/22/18 19:00 06/22/18 19:51 Temperature 99.6 F Pulse Rate 98 H 99 H 93 H Respiratory Rate 18 Blood Pressure 123/71 Pulse Oximetry 98 06/22/18 20:00 06/22/18 21:00 06/22/18 22:00 Temperature Pulse Rate 96 H 98 H 90 Respiratory Rate Blood Pressure Pulse Oximetry 06/22/18 23:00 06/23/18 00:00 06/23/18 01:00 Temperature 98.7 F Pulse Rate 85 86 82 Respiratory Rate 16 Blood Pressure 141/86 H Pulse Oximetry 99 06/23/18 02:00 06/23/18 03:00 06/23/18 04:00 Temperature 98.4 F Pulse Rate 83 79 78 Respiratory Rate 16 Blood Pressure 124/76 Pulse Oximetry 98 06/23/18 05:00 06/23/18 06:00 06/23/18 07:00 Temperature 99.0 F Pulse Rate 79 82 84 Respiratory Rate 17 Blood Pressure 133/85 Pulse Oximetry 99 06/23/18 08:00 06/23/18 09:00 06/23/18 10:00 Temperature Pulse Rate 92 H 88 100 H Respiratory Rate Blood Pressure Pulse Oximetry 06/23/18 11:00 06/23/18 12:00 06/23/18 13:00 Temperature 99.0 F Pulse Rate 90 77 79 Respiratory Rate 17 Blood Pressure 138/82 Pulse Oximetry 100 06/23/18 14:00 06/23/18 15:00 Temperature 98.9 F Pulse Rate 90 100 H Respiratory Rate 18 Blood Pressure 135/80 Pulse Oximetry 99 Intake & Output 06/22/18 06/23/18 06/23/18 18:59 06:59 18:59 Intake Total 980 / 980 350 / 350 310 / 310 Output Total 900 / 900 500 / 500 Balance 80 / 80 -150 / -150 310 / 310 Weight 80 kg Intake: IV 260 / 260 110 / 110 310 / 310 Venofer Inj 200 MG In NS Inj 110 / 110 110 / 110 100 ML @ 110 mls/hr IV.SIG ONCE ONE Rx#:[id number] Magnesium Sulfate 1 gm/D5W 100 200 / 200 ml Premix 100 ML @ 100 mls/hr IV.SIG Q1H JOSE L Rx#:[id number] Potassium Phosphate Inj 30 MMOL 260 / 260 In NS Inj 250 ML @ 43.333 mls/ hr IV.SIG ONCE ONE Rx#:[id number] Oral 720 / 720 240 / 240 Output: Urine 900 / 900 500 / 500 Other: # Voids 3 Date of Last Bowel Movement 06/22/18 - Constitutional no acute distress - Routine Respiratory Exam Present: CTA bilaterally - Routine Cardiovascular Exam Present: RRR - Routine Abdominal Exam Present: soft - Routine Extremities Exam Comments: no pedal edema. - Routine Neurological Exam Present: alert, oriented X3 Results Procedures completed during hospitalization: cadaveric kidney transplant Labs on day of discharge: Labs from last 24 hours 06/23/18 06/23/18 06/23/18 04:15 04:15 04:15 WBC 3.3 L D RBC 2.38 L Hgb 7.2 L Hct 21.7 L MCV 91.0 MCH 30.3 MCHC 33.3 RDW 16.3 Plt Count 135 L MPV 8.9 Prelim Diff (Auto) Slide review pending Neut % (Auto) 88.4 H Lymph % (Auto) 1.4 L [place] % (Auto) 9.8 H Eos % (Auto) 0.2 Baso % (Auto) 0.2 Neut # (Auto) 2.9 Lymph # (Auto) 0.0 L [place] # (Auto) 0.3 Eos # (Auto) 0.0 Baso # (Auto) 0.0 WBC Differential Manual diff final Seg Neuts % (Manual) 80 H Band Neuts % (Manual) 11 H Lymphocytes % (Manual) 2 L Monocytes % (Manual) 3 Metamyelocytes % (Man) 1 Myelocytes % (Man) 1 H Promyelocytes % (Man) 2 H Abs Neuts (Manual) 3.1 Differential Comment . Platelet Estimate Low L Platelet Morphology Normal Sodium 142 Potassium 3.8 Chloride 109 H Carbon Dioxide 30.2 Anion Gap 3 L BUN 19 H Creatinine 1.68 H Estimated GFR 54 L Random Glucose 96 Calcium 8.9 Phosphorus 1.4 L Magnesium 1.5 Tacrolimus 4.7 L - Impressions ITS Impressions Chest X-Ray 06/18/18 15:00 CONCLUSION: Left IJ catheter in good position Renal Ultrasound 06/18/18 15:05 CONCLUSION: 1. Negative examination. Discharge Plan - Discharge Disposition Patient Disposition: Discharge Home - Discharge Order Discharge Orders: Discharge Order (Routine); Ordered 06/23/18 Ordered By: Pro Ley - Physicians Team Primary Care Provider: Daniel Varner Attending Provider: Pro Ley Other Providers: Richmond Gan MD ; Vincent Kumar MD - Rxs /Orders / Referrals /Forms Prescriptions: New calcium carbonate 200 mg calcium (500 mg) Tablet,Chewable 500 mg CHEW BID@16 Qty: 60 RF: 5 docusate sodium [DOK] 100 mg Capsule 100 mg PO BID Qty: 30 RF: 0 magnesium oxide 400 mg (241.3 mg magnesium) Tablet 400 mg PO BID Qty: 60 RF: 5 mycophenolate mofetil [CellCept] 500 mg Tablet 1,000 mg PO BID@0600,1800 RF: 0 nystatin 100,000 unit/mL Suspension 5 ml SWISH-SWAL QID RF: 0 oxycodone-acetaminophen 5-325 mg Tablet 1 tab PO Q4H PRN (Reason: ABDOMINAL PAIN -12/25) Qty: 30 RF: 0 potassium phosphate, monobasic [K-Phos Original] 500 mg Tablet,Soluble 500 mg PO BID Qty: 60 RF: 5 sulfamethoxazole-trimethoprim 800-160 mg Tablet 1 tab PO MoWeFr Qty: 90 RF: 1 tacrolimus [Prograf] 5 mg Capsule 5 mg PO BID@0600,1800 RF: 0 tamsulosin 0.4 mg Capsule 0.4 mg PO DAILY Qty: 30 RF: 0 valganciclovir [Valcyte] 450 mg Tablet 900 mg PO DAILY RF: 0 Continue B complex-vitamin C-folic acid [Dialyvite] 100-1 mg Tablet 1 tab PO DAILY calcitriol 0.5 mcg Capsule 0.5 mcg PO DAILY cinacalcet [Sensipar] 60 mg Tablet 120 mg PO DAILY labetalol 200 mg Tablet 200 mg PO BID Qty: 60 RF: 2 rosuvastatin [Crestor] 10 mg Tablet 10 mg PO DAILY Discontinued amlodipine 10 mg Tablet 10 mg PO DAILY Referrals: Daniel Varner III [Primary Care Provider] - See Instructions - Discharge Instructions Patient Printed Instructions: Kidney Transplant (DC)
--- NOTE | 2018-06-24 10:06 | P.DIET ---
Nutritional Evaluation Type of nutrition evaluation: follow-up (Nutrition Education and Discharge Planning) Screening comments: Nutrition Assessment/Education s/p kidney transplant Late entry: Patient was educated on 06/23/2018 Subjective Subjective Comments: Pt states he is eating well, has no complaints at this time. He verbalizes extreme gratefulness for the team and his kidney. Objective - Diagnosis ESRD - Objective % IBW: 91 Energy Needs - Lower Range (kCal/kg): 28 Energy Needs - Upper Range (kCal/kg): 33 Lower Limit kCal/kg (kCals): 2,120 Upper Limit kCal/kg (kCals): 2,498 Lower Limit Protein Factor (Grams per Kg): 1.2 Upper Limit Protein Factor (Grams per Kg): 1.4 Lower Protein Needs (Protein): 91 Upper Protein Needs (Protein): 106 Estimated Fluid Needs (ml): 2,000 Dietitian Reviewed in Medical Record: Current diet, Curent medications, Intake & Output, Labs, Medical history Diet Order: Regular Objective Comments: Pt's nutritional needs based on admit wt of 75.7kg Noted Labs: Cr 1.68, Phosphorus 1.4, Iron 18 Assessment Assessment: Patient is progressing well s/p kidney transplant. His po intake is much improved, UOP is up and Cr is 1.68. Educated pt on nutritional guidelines, see below. Pt to be discharged 06/23/2018 and will be followed in the outpatient post transplant clinic. Dietitian to Monitor: Lab values, Renal labs, Intake & Output, Diet tolerance, Weight change, Diet advancement, Medical course Transplant Education: Provided nutrition education after kidney transplant with Quinton Galvan. I stressed the importance of drinking adequate water, 2.5-3L/day. Educated on high phosphorus foods to include in his diet daily. I explained that medications may elevate cholesterol and triglycerides. I discussed the monitoring of glucose while on steroids and the possibility of prograf-induced diabetes. I also discussed the possibility of weight gain related to increased appetite and medications. Educated patient on food safety and the importance of reducing his risk of food borne illness. Stressed the importance of maintaining an active lifestyle once patient is cleared to do so. I answered all of patient' s questions. Patient appears very receptive to following the nutrition guidelines and I expect excellent compliance. Will monitor patient in post- transplant clinic.
== END 2018-06-23 19:36 | disposition home or self-care (01) ==
LOC: HCIN 22:56 → HCIS 06-18 14:08 → HCVI 06-18 17:51 → HCPC 06-21 08:19
PROVIDERS: ADMIT Internal Medicine; ATTEND Internal Medicine

== ENCOUNTER 2018-07-02 13:01 | Inpatient (IN) ==
[2018-07-02] MEDS ORDERED: Aluminum/Magnesium/Simethacone Susp 30 ML UDC PO PRN (15:06)
[2018-07-02] MEDS ORDERED: Acetaminophen 325 MG Tablet PO PRN (15:06)
[2018-07-02] MEDS ORDERED: Senna/Docusate Sodium 8.6/50 MG Tablet PO PRN (15:06)
[2018-07-02] MEDS ORDERED: Docusate Sodium 100 MG Capsule PO PRN (15:06)
[2018-07-02] MEDS ORDERED: Bisacodyl 10 MG Supp RECTAL PRN (15:08)
[2018-07-02] MEDS ORDERED: Sodium Chloride 0.9% 2 ML Flush PRN IV.FLUSH (15:14)
--- NOTE | 2018-07-02 15:41 | P.HPNP ---
History of Present Illness Service: Nephrology Primary Care Physician: UNKNOWN Chief Complaint: Acute renal failure History of Present Illness: Patient is a 43-year-old -[place] male with history of kidney transplant on 06/18/2018 and came in for follow-up visit noted to have elevated creatinine of 2.3 baseline creatinine was 1.8 and gradually increased to 2.1 and today 2.3, patient remains nonoliguric, he said he had some pain around his incision and there was a area which concerned him below the incision. However he did not notice any changes in his urine output, he said he has to push himself to drink water but he is doing about 3 to 4 L of water a day, he denies any dysuria or burning or nausea or vomiting. - Diagnosis (1) Acute renal failure (2) Hypertension (3) Kidney transplant recipient Review of Systems Constitutional: Denies anorexia, Denies body ache(s), Denies chills, Denies daytime sleepiness, Denies excessive sweating, Denies fatigue, Denies fever(s), Denies headache(s), Denies increased appetite, Denies lack of energy, Denies malaise, Denies night sweats, Denies weakness, Denies weight gain, Denies weight loss, Denies other Eyes: Denies blind spots, Denies blurry vision, Denies bulging eyes, Denies change in vision, Denies double vision, Denies discharge, Denies dry eyes, Denies floaters, Denies irritation, Denies itchy eyes, Denies loss of vision, Denies pain, Denies requires corrective lenses, Denies sensitivity to light, Denies other Ears, Nose, Mouth, and Throat: Denies abnormal hearing, Denies bleeding gums, Denies bad breath, Denies change in voice, Denies dental pain, Denies difficulty swallowing, Denies dizziness, Denies dry mouth, Denies ear discharge , Denies ear pain, Denies facial pain, Denies headache(s), Denies hearing loss, Denies hoarseness, Denies lip swelling, Denies nosebleed, Denies mouth lesions, Denies mouth pain, Denies nasal congestion, Denies nasal discharge, Denies nasal obstruction, Denies nasal trauma, Denies neck lump, Denies neck pain, Denies nose pain, Denies pain with swallowing, Denies poor balance, Denies post nasal drip, Denies ringing in the ears, Denies sinus pain, Denies sinus pressure , Denies sore throat, Denies throat swelling, Denies tongue swelling, Denies other Cardiovascular: Denies chest pain, Denies chest pain at rest, Denies chest pain with activity, Denies excessive sweating, Denies fainting, Denies fast heart rate, Denies foot swelling, Denies generalized swelling, Denies irregular heart rhythm, Denies leg pain with activity, Denies leg sores, Denies leg swelling, Denies lightheadedness, Denies radiating jaw, neck or arm pain, Denies rapid, pounding, or irregular heartbeat, Denies shortness of breath, Denies shortness of breath with activity, Denies shortness of breath when lying down, Denies shortness of breath causing sudden awakening, Denies slow heart rate, Denies other Respiratory: Denies change in phlegm color, Denies chest congestion, Denies cough, Denies coughing up blood, Denies excessive phlegm production, Denies pain on inspiration, Denies pain with cough, Denies shortness of breath, Denies shortness of breath with activity, Denies snoring, Denies stridor, Denies wheezing, Denies other Gastrointestinal: Reports abdominal pain (Recent surgery and incision) Genitourinary: Denies blood in semen, Denies blood in urine, Denies decreased urination, Denies difficulty urinating, Denies difficulty with ejaculations, Denies erectile dysfunction, Denies genital lesions, Denies genital pain, Denies painful urination, Denies side pain, Denies frequent nighttime urination , Denies painful ejaculations, Denies penile discharge, Denies scrotal swelling , Denies testicle lump, Denies testicle pain, Denies urinary frequency, Denies urinary hesitancy, Denies urinary incontinence, Denies urinary urgency, Denies other Musculoskeletal: Denies abnormal walking, Denies back pain, Denies body aches, Denies decreased muscle mass, Denies deformity, Denies joint pain, Denies joint swelling, Denies limited joint movement, Denies loss of height, Denies muscle cramps, Denies muscle weakness, Denies neck pain, Denies numbness, Denies radiating pain into limb, Denies stiffness, Denies tingling, Denies other Skin/Breast: Reports acne Neurologic: Denies abnormal hearing, Denies abnormal movements, Denies abnormal speech, Denies abnormal walking, Denies behavioral changes, Denies burning sensations, Denies confusion, Denies dizziness, Denies fainting, Denies frequent falls, Denies headache(s), Denies lack of coordination, Denies localized weakness, Denies loss of vision, Denies memory loss, Denies numbness, Denies other visual disturbances, Denies radiating pain, Denies restless legs, Denies convulsions, Denies seizure-like activity, Denies sensory deficit, Denies tingling, Denies tingling/numbness/burning sensations, Denies tremor(s), Denies unsteadiness, Denies weakness, Denies other Psychiatric: Denies abnormal sleep pattern, Denies anxiety, Denies behavioral changes, Denies change in appetite, Denies change in sex drive, Denies confusion , Denies depression, Denies difficulty concentrating, Denies hearing things others do not hear, Denies hopelessness, Denies irritability, Denies lack of enjoyment, Denies memory loss, Denies mood swings, Denies panic attacks, Denies paranoia, Denies seeing things others do not see, Denies sensing things others do not sense, Denies tactile hallucinations, Denies thoughts of hurting/killing others, Denies thoughts of hurting/killing yourself, Denies other Endocrine: Denies cold intolerance, Denies excessive sweating, Denies flushing, Denies heat intolerance, Denies increased hunger, Denies increased thirst, Denies increased urination, Denies rapid, pounding, or irregular heartbeat, Denies other Hematologic/Lymphatic: Denies easy bleeding, Denies easy bruising, Denies enlarged lymph nodes, Denies other Allergic/Immunologic: Denies GI upset with certain foods, Denies hives, Denies itchy eyes, Denies lip swelling, Denies seasonal runny nose, Denies throat swelling, Denies tongue swelling, Denies wheezing, Denies other PMFSH - History History Provided By: Patient - Medical History Medical History: Medical History (Last Reviewed 07/02/18 @ 15:37 by Richmond Gan MD) Anemia Dialysis patient ESRD (end stage renal disease) on dialysis Hepatitis C High cholesterol History of hyperparathyroidism Hypertension - Surgical History Surgical History: Surgical History (Last Reviewed 07/02/18 @ 15:37 by Richmond Gan MD) History of nephrectomy, unilateral - Family History Family History: Family History (Last Reviewed 07/02/18 @ 15:37 by Richmond Gan MD) Mother Family history of diabetes mellitus Family history of hypertension Father Lung cancer Family history of diabetes mellitus Family history of hypertension CAD (coronary artery disease) Aunt Family history of diabetes mellitus - Tobacco History Second Hand Smoke Exposure: No Tobacco Use In Past 30 Days: No Smoking Status: Never smoker Packs Per Day: 1 (Quit 6 or 7 years ago) Years Smoked: 6 Smoking End Date: quit 5 years ago - Alcohol History How Often Do You Have a Drink Containing Alcohol: Never - Substance Use History Substance History: No History of Abuse - Travel History Recent Travel in the [place] Within the Last 8 Weeks: No Recent Travel Out of the Country Within the Last 8 Weeks: No Medications and Allergies Active Medications: Active Medications Acetaminophen (Tylenol) 650 mg PO Q4H PRN PRN Reason: Temp > 100.4 Hydrocodone Bitart/Acetaminophen (Melvin 5/325) 1 tab PO Q6H PRN PRN Reason: PAIN SCALE 6 TO 10 Al Hydrox/Mg Hydrox/Simethicone (Mag-Al Plus Susp Liq) 30 ml PO Q6H PRN PRN Reason: DYSPEPSIA Al Hydroxide/Mg Hydroxide (Milk Of Magnesia Liq) 30 ml PO Q12H PRN PRN Reason: Mild Constipation Bisacodyl (Dulcolax Supp) 10 mg RECTAL DAILY PRN PRN Reason: SEVERE CONSITIPATION Calcium Carbonate (Tums Chew) 1,000 mg CHEW TID PRN PRN Reason: DYSPEPSIA Docusate Sodium (Colace) 100 mg PO BID PRN PRN Reason: CONSTIPATION Sodium Chloride (Ns Inj) 1,000 mls @ 100 mls/hr IV.CONT .Q10H JOSE L Labetalol HCl (Trandate) 200 mg PO BID JOSE L Magnesium Oxide (Mag-Ox) 800 mg PO BID JOSE L Mycophenolate Mofetil (Cellcept) 1,000 mg PO BID@0600,1800 JOSE L Ondansetron HCl (Zofran Inj) 4 mg IV.PUSH Q6H PRN PRN Reason: NAUSEA Potassium Phosphate (K-Phos Original) 500 mg PO BID JOSE L Prednisone (Deltasone) 10 mg PO DAILY [facility] Sennosides (Senokot) 17.2 mg PO Q12H PRN PRN Reason: Moderate Constipation Sodium Chloride (Ns Flush) 2 ml IV.FLUSH BID [facility] Sodium Chloride (Ns Flush) 2 ml IV.FLUSH PRN PRN PRN Reason: FLUSH AFTER USING IV ACCESS Tacrolimus (Prograf) 5 mg PO BID@0600,1800 [facility] Tacrolimus (Prograf) 3 mg PO BID@0600,1800 [facility] Trimethoprim/Sulfamethoxazole (Bactrim Ds) 1 tab PO MoWeFr@0900 [facility] Valganciclovir (Valcyte) 450 mg PO DAILY [facility] Zolpidem Tartrate (Ambien) 5 mg PO HS PRN PRN Reason: INSOMNIA Allergies Allergy/AdvReac Type Severity Reaction Status Date / Time No Known Allergies Allergy Unverified 05/28/18 13:35 Home Medications Medication Instructions Recorded Confirmed Type B complex-vitamin C-folic acid 1 tab PO DAILY 05/28/18 06/17/18 History [Dialyvite] cinacalcet [Sensipar] 120 mg PO DAILY 05/28/18 06/17/18 History rosuvastatin [Crestor] 10 mg PO DAILY 05/28/18 06/17/18 History calcitriol 0.5 mcg PO DAILY 06/17/18 06/18/18 History Exam Vital signs: Vital Signs 07/02/18 14:55 Temperature 98.3 F Pulse Rate 71 Respiratory Rate 17 Blood Pressure 127/74 Pulse Oximetry 95 Intake & Output 07/01/18 07/02/18 07/02/18 18:59 06:59 18:59 Weight 76 kg Other: Weight On Admission 78 kg Narrative: GENERAL: Well-nourished, well-developed patient. SKIN: Warm and dry. HEAD: Normocephalic. EYES: No scleral icterus. No injection or drainage. NECK: Supple, trachea midline. No JVD or lymphadenopathy. CARDIOVASCULAR: Regular rate and rhythm without murmurs, gallops, or rubs. RESPIRATORY: Breath sounds equal bilaterally. No accessory muscle use. GASTROINTESTINAL: Abdomen soft, mildly tender over the incision which is healing well, nondistended. EXTREMITIES: No edema NEUROLOGICAL: Awake, alert, and oriented x 3. Non-focal. Results - Lab Results 07/04/18 12:28 07/04/18 04:10 Caprini VTE Risk Assessment Caprini VTE Risk Assessment: No/Low Risk (score <= 1) Caprini Risk Assessment Model: Point Value = 1 Point Value = 2 Point Value = 3 Point Value = 5 Age 41-60 Minor surgery BMI > 25 kg/m2 Swollen legs Varicose veins or History of unexplained or recurrent spontaneous Oral contraceptives or hormone replacement Sepsis (< 1 month) Serious lung disease, including pneumonia (< 1 month) Abnormal pulmonary function Acute myocardial infarction Congestive heart failure (< 1 month) History of inflammatory bowel disease Medical patient at bed rest Age 61-74 Arthroscopic surgery Major open surgery (> 45 min) Laparoscopic surgery (> 45 min) Malignancy Confined to bed (> 72 hours) Immobilizing plaster cast Central venous access Age >= 75 History of VTE Family history of VTE Factor V Leiden Prothrombin [id number] Lupus anticoagulant Anticardiolipin antibodies Elevated serum homocysteine Heparin-induced thrombocytopenia Other congenital or acquired thrombophilia Stroke (< 1 month) Elective arthroplasty Hip, pelvis, or leg fracture Acute spinal cord injury (< 1 month) Prophylaxis Regimen: Total Risk Factor Score Risk Level Prophylaxis Regimen 0-1 Low Early ambulation 2 Moderate Order ONE of the following: *Sequential Compression Device (SCD) *Heparin 5000 units SQ BID 3-4 Higher Order ONE of the following medications: *Heparin 5000 units SQ TID *Enoxaparin/Lovenox 40 mg SQ daily (WT < 150 kg, CrCl > 30 mL/min) *Enoxaparin/Lovenox 30 mg SQ daily (WT < 150 kg, CrCl > 10-29 mL/min) *Enoxaparin/Lovenox 30 mg SQ BID (WT < 150 kg, CrCl > 30 mL/min) AND/OR *Sequential Compression Device (SCD) 5 or more Highest Order ONE of the following medications: *Heparin 5000 units SQ TID (Preferred with Epidurals) *Enoxaparin/Lovenox 40 mg SQ daily (WT < 150 kg, CrCl > 30 mL/min) *Enoxaparin/Lovenox 30 mg SQ daily (WT < 150 kg, CrCl > 10-29 mL/min) *Enoxaparin/Lovenox 30 mg SQ BID (WT < 150 kg, CrCl > 30 mL/min) AND *Sequential Compression Device (SCD) Assessment and Plan - Assessment (1) Acute renal failure Code(s): N17.9 - Acute kidney failure, unspecified Status: Acute Plan: Likely dehydration rule out rejection (2) Hypertension Code(s): I10 - Essential (primary) hypertension Status: Chronic (3) Kidney transplant recipient Code(s): Z94.0 - Kidney transplant status Status: Acute - Plan Patient has good urine output he has been maintained on tacrolimus the dose has been increased to 8 mg twice a day and continue with CellCept 1000 mg twice daily, prednisone 10 mg daily, overnight we will hydrate him with normal saline at 100 cc an hour Follow CBC CMP in the morning there is a possibility of kidney biopsy if kidney failure does not resolve Keep him n.p.o. after midnight Obtain transplant kidney ultrasound Follow him closely and avoid nephrotoxic agent CMP ordered in the morning We will do tacrolimus level H&P: Quality - VTE Deep Vein Thrombosis/Pulmonary Embolism Present on Admission: No (1) Acute renal failure Qualifiers: Acute renal failure type: unspecified Qualified Code(s): N17.9 - Acute kidney failure, unspecified (2) Hypertension Qualifiers: Hypertension type: essential hypertension Qualified Code(s): I10 - Essential (primary) hypertension
[2018-07-02] MEDS ORDERED: Mag Sulf 1 gm/100 ml Premix 100 ML IV.SIG ONE (15:45)
--- NOTE | 2018-07-02 16:33 | US ---
EXAM DATE: 07/02/2018 4:27 PM EST AGE/SEX: 43 years / Male INDICATIONS: Acute renal failure with a recent transplanted kidney. CLINICAL DATA: This is the patient's subsequent encounter. Patient reports that signs and symptoms h ave been present for 1 week and indicates a pain score of 3/10. MEDICAL/SURGICAL HISTORY: Renal disease, end stage. Hepatitis C. Hypercholesterolemia. Anemi a. Hypertension. Nephrectomy, right. [place]PAR[place]: [facility] [place] DOP[place]/18/2018. . MEASUREMENTS: Transplant Kidney:__11.5 x 5.0 x 6.0 cm Location:__Right lower quadrant Arcuate Arteries Resistive Index: Upper - 0.7 Mid - 0.6 Lower - 0.6 Main Renal Artery Velocity:__143 cm/sec Main Renal Vein:__Patent External Iliac Artery Velocity:__84 cm/sec External Iliac Vein:__Patent FINDINGS: Transplant Kidney: Normal echotexture and cortical thickness. No mass or hydronephrosis. No peritran splant fluid. Urinary Bladder: Within normal limits given the degree of distension. Other: None. CONCLUSION: Within normal limits. Electronically signed by: David Givens MD 07/02/2018 4:32 PM EST
[2018-07-02] MEDS: Sod Chloride 0.9% Inj 1,000 ML IV.CONT SCH (17:32)
[2018-07-02] MEDS ORDERED: Metoprolol Tartrate 50 MG Tablet PO SCH (21:00)
[2018-07-02] MEDS ORDERED: Zolpidem Tartrate 5 MG Tablet PO PRN (21:00)
[2018-07-02] MEDS: Potassium Phosphate 500 MG Soluble Tablet PO SCH (21:45)
[2018-07-02] MEDS: Magnesium Oxide 400 MG Tablet PO SCH (21:45)
[2018-07-02] MEDS: Sodium Chloride 0.9% 2 ML Flush BID IV.FLUSH SCH (21:45)
[2018-07-03] MEDS: Sod Chloride 0.9% Inj 1,000 ML IV.CONT SCH ×2 (02:03→14:18)
[2018-07-03] MEDS: Labetalol 200 MG Tablet PO SCH ×3 (02:32→20:51)
[2018-07-03 05:13] LABS: Baso % (Auto) 0.6 % (0.0-2.0); Eos % (Auto) 0.6 % (0.0-4.0); Lymph % (Auto) 0.9 % (9.0-44.0); Mean Corpuscular HGB Conc 34.2 % (32.0-36.0); Mean Corpuscular Hemoglobin 31.4 pg (27.0-34.0); Mean Corpuscular Volume 91.8 fL (80.0-100.0); Mean Platelet Volume 6.7 fL (7.0-11.0); Mono # (Auto) 0.3 th/mm3 (0.0-0.9); Mono % (Auto) 5.1 % (0.0-8.0); Neut % (Auto) 92.8 % (16.0-70.0); Platelet Count 337 th/mm3 (150-450); Red Blood Count 2.08 mil/mm3 (4.50-5.90); Red Cell Distribution Width 18.8 % (11.6-17.2); White Blood Count 5.4 th/mm3 (4.0-11.0)
[2018-07-03 05:22] LABS: Hematocrit 19.1 % (39.0-51.0); Hemoglobin 6.5 gm/dL (13.0-17.0)
[2018-07-03 05:23] LABS: INR 1.1 Ratio; Prothrombin Time 10.7 sec (9.8-11.6)
[2018-07-03 05:39] LABS: Albumin 2.9 g/dL (3.4-5.0); Anion Gap 7 meq/L (5-15); Aspartate Aminotransferase 19 U/L (15-37); Blood Urea Nitrogen 15 mg/dL (7-18); Calcium 8.2 mg/dL (8.5-10.1); Carbon Dioxide 26.2 meq/L (21.0-32.0); Chloride 109 meq/L (98-107); Glomerular Filtration Rate 41 mL/min (>89); Glucose,Random 84 mg/dL (74-106); Magnesium 1.6 mg/dL (1.5-2.5); Potassium 4.5 meq/L (3.5-5.1); Sodium 142 meq/L (136-145)
[2018-07-03 05:40] LABS: Alanine Aminotransferase 25 U/L (12-78); Phosphorus 2.3 mg/dL (2.5-4.9)
[2018-07-03 05:43] LABS: Alkaline Phosphatase 56 U/L (45-117); Total Protein 5.8 g/dL (6.4-8.2)
[2018-07-03 07:53] LABS: Ovalocytes 1+
[2018-07-03] MEDS ORDERED: Sodium Chlor 0.9% Inj 250 ML IV.SIG SCH (08:00)
[2018-07-03 08:09] LABS: Hemoglobin 6.8 gm/dL (13.0-17.0)
[2018-07-03 08:10] LABS: Hematocrit 19.9 % (39.0-51.0)
--- NOTE | 2018-07-03 09:12 | P.PNNP ---
Subjective Interval history: Patient overnight did well, he had leg cramps at night D improved, he received hydration he said he has good urine output Denies any dysuria or burning Physical Exam Vital signs: Vital Signs 07/02/18 14:55 07/02/18 16:00 07/02/18 20:00 Temperature 98.3 F 98.7 F 98.7 F Pulse Rate 71 77 83 Respiratory Rate 17 17 19 Blood Pressure 127/74 127/74 105/57 L Pulse Oximetry 95 95 96 07/03/18 00:00 07/03/18 04:00 07/03/18 07:00 Temperature 98.6 F 98.6 F Pulse Rate 80 80 78 Respiratory Rate 20 20 Blood Pressure 127/84 120/73 Pulse Oximetry 80 L 80 L Intake & Output 07/02/18 07/03/18 07/03/18 18:59 06:59 18:59 Intake Total 240 / 240 1100 / 1100 Output Total 900 / 900 Balance 240 / 240 200 / 200 Weight 76 kg 78 kg Intake: IV 1100 / 1100 NS Inj 1,000 ML @ 100 mls/hr IV 1000 / 1000 .CONT .Q10H [facility] Rx#:[id number] Magnesium Sulfate 1 gm/D5W 100 100 / 100 ml Premix 100 ML @ 100 mls/hr IV.SIG ONCE ONE Rx#:[id number] Oral 240 / 240 Output: Urine 900 / 900 Other: Weight On Admission 78 kg Narrative: GENERAL: Well-nourished, well-developed patient. SKIN: Warm and dry. HEAD: Normocephalic. EYES: No scleral icterus. No injection or drainage. NECK: Supple, trachea midline. No JVD or lymphadenopathy. CARDIOVASCULAR: Regular rate and rhythm without murmurs, gallops, or rubs. RESPIRATORY: Breath sounds equal bilaterally. No accessory muscle use. GASTROINTESTINAL: Abdomen soft, mildly tender over the incision which is healing well, nondistended. EXTREMITIES: No edema NEUROLOGICAL: Awake, alert, and oriented x 3. Non-focal. Assessment and Plan - Assessment (1) Acute renal failure Code(s): N17.9 - Acute kidney failure, unspecified Status: Acute Qualifiers: Acute renal failure type: unspecified Qualified Code(s): N17.9 - Acute kidney failure, unspecified Plan: Likely dehydration rule out rejection (2) Hypertension Code(s): I10 - Essential (primary) hypertension Status: Chronic Qualifiers: Hypertension type: essential hypertension Qualified Code(s): I10 - Essential (primary) hypertension (3) Kidney transplant recipient Code(s): Z94.0 - Kidney transplant status Status: Acute - Plan Patient has good urine output he has been maintained on tacrolimus the dose has been increased to 8 mg twice a day and continue with CellCept 1000 mg twice daily, prednisone 10 mg daily, follow tacrolimus level His hemoglobin dropped repeat hemoglobin 6.8, 2 units of packed red blood cells ordered Patient will be monitored with hydration, told him to drink about a gallon of water throughout the day Encourage oral hydration Creatinine declined to 2.13 Ultrasound was negative Continue to monitor for further improvement Discussed with Dr. Kumar
[2018-07-03] MEDS: predniSONE 10 MG Tablet PO SCH (09:16)
[2018-07-03] MEDS: Magnesium Oxide 400 MG Tablet PO SCH ×2 (09:16→20:49)
[2018-07-03] MEDS: Potassium Phosphate 500 MG Soluble Tablet PO SCH ×2 (09:16→20:51)
[2018-07-03] MEDS: Sodium Chloride 0.9% 2 ML Flush BID IV.FLUSH SCH ×2 (09:17→20:52)
--- NOTE | 2018-07-03 11:25 | P.PNTS ---
Subjective Interval history: No new c/o. Physical Exam Vital signs: Vital Signs 07/02/18 14:55 07/02/18 16:00 07/02/18 20:00 Temperature 98.3 F 98.7 F 98.7 F Pulse Rate 71 77 83 Respiratory Rate 17 17 19 Blood Pressure 127/74 127/74 105/57 L Pulse Oximetry 95 95 96 07/03/18 00:00 07/03/18 04:00 07/03/18 07:00 Temperature 98.6 F 98.6 F Pulse Rate 80 80 78 Respiratory Rate 20 20 Blood Pressure 127/84 120/73 Pulse Oximetry 80 L 80 L 07/03/18 09:00 07/03/18 09:13 07/03/18 10:00 Temperature 98.5 F Pulse Rate 76 78 74 Respiratory Rate 20 Blood Pressure 159/90 H Pulse Oximetry Intake & Output 07/02/18 07/03/18 07/03/18 18:59 06:59 18:59 Intake Total 240 / 240 1100 / 1100 0 / 0 Output Total 900 / 900 Balance 240 / 240 200 / 200 0 / 0 Weight 76 kg 78 kg Intake: IV 1100 / 1100 NS Inj 1,000 ML @ 100 mls/hr IV 1000 / 1000 .CONT .Q10H [facility] Rx#:[id number] Magnesium Sulfate 1 gm/D5W 100 100 / 100 ml Premix 100 ML @ 100 mls/hr IV.SIG ONCE ONE Rx#:[id number] Oral 240 / 240 Intake (Blood Product) Amt 0 / 0 Rbc As-3 Leukoreduced Unit 0 / 0 [id number] Output: Urine 900 / 900 Other: Weight On Admission 78 kg - Constitutional no acute distress - Routine HEENT Exam Head: Present: normocephalic, atraumatic Eye: Present: EOMI ENT: Present: mucous membranes moist - Routine Neck Exam Present: supple, full ROM - Routine Respiratory Exam Present: CTA bilaterally - Routine Abdominal Exam Present: soft, normoactive bowel sounds - Routine Extremities Exam Present: pulses intact Comments: Calves soft NT bilaterally. No palpable cords. - Routine Neurological Exam Present: alert, oriented X3 - Detailed Neurological Exam: Coma Scale Verbal Response: Oriented - Routine Psychiatric Exam Present: normal affect, normal thought process Results - Labs CBC & Chem 7: 07/03/18 07:56 07/03/18 04:46 Laboratory Results - last 24 hr 07/02/18 07/03/18 07/03/18 21:48 04:46 04:46 WBC 5.4 RBC 2.08 L Hgb 6.5 L* Hct 19.1 L* MCV 91.8 MCH 31.4 MCHC 34.2 RDW 18.8 H Plt Count 337 MPV 6.7 L Prelim Diff (Auto) Slide review pending Neut % (Auto) 92.8 H Lymph % (Auto) 0.9 L Cottle % (Auto) 5.1 Eos % (Auto) 0.6 Baso % (Auto) 0.6 Neut # (Auto) 5.0 Lymph # (Auto) 0.0 L Cottle # (Auto) 0.3 Eos # (Auto) 0.0 Baso # (Auto) 0.0 WBC Differential . Diff Scan Auto diff confirmed Differential Comment . Ovalocytes 1+ H PT 10.7 INR 1.1 Sodium Potassium Chloride Carbon Dioxide Anion Gap BUN Creatinine Estimated GFR POC Glucose 162 H Random Glucose Calcium Phosphorus Magnesium Total Bilirubin AST ALT Alkaline Phosphatase Total Protein Albumin Blood Type Blood Type Recheck Antibody Screen MTS Gel Crossmatch 07/03/18 07/03/18 07/03/18 04:46 07:52 07:56 WBC RBC Hgb 6.8 L* Hct 19.9 L* MCV MCH MCHC RDW Plt Count MPV Prelim Diff (Auto) Neut % (Auto) Lymph % (Auto) Cottle % (Auto) Eos % (Auto) Baso % (Auto) Neut # (Auto) Lymph # (Auto) Cottle # (Auto) Eos # (Auto) Baso # (Auto) WBC Differential Diff Scan Differential Comment Ovalocytes PT INR Sodium 142 Potassium 4.5 Chloride 109 H Carbon Dioxide 26.2 Anion Gap 7 BUN 15 Creatinine 2.13 H Estimated GFR 41 L POC Glucose Random Glucose 84 Calcium 8.2 L Phosphorus 2.3 L Magnesium 1.6 Total Bilirubin 0.3 AST 19 ALT 25 Alkaline Phosphatase 56 Total Protein 5.8 L Albumin 2.9 L Blood Type Blood Type Recheck Antibody Screen MTS Gel Crossmatch See Detail 07/03/18 07:56 WBC RBC Hgb Hct MCV MCH MCHC RDW Plt Count MPV Prelim Diff (Auto) Neut % (Auto) Lymph % (Auto) Cottle % (Auto) Eos % (Auto) Baso % (Auto) Neut # (Auto) Lymph # (Auto) Cottle # (Auto) Eos # (Auto) Baso # (Auto) WBC Differential Diff Scan Differential Comment Ovalocytes PT INR Sodium Potassium Chloride Carbon Dioxide Anion Gap BUN Creatinine Estimated GFR POC Glucose Random Glucose Calcium Phosphorus Magnesium Total Bilirubin AST ALT Alkaline Phosphatase Total Protein Albumin Blood Type O Positive Blood Type Recheck Not needed Antibody Screen Negative MTS Gel Crossmatch - Imaging Impressions Renal Ultrasound 07/02/18 15:11 CONCLUSION: Within normal limits. Assessment and Plan - Assessment (1) Kidney transplant recipient Code(s): Z94.0 - Kidney transplant status Status: Acute - Plan Patient s/p DDKT on . Admitted with elevated creatinine. levels trended down slightly overnight. Hgb decreased to below 7 (6.5-6.8). ? acute blood loss anemia vs relative bone marrow suppression due to immunosuppression. US with no significant fluid collection. Will transfuse 2 units PRBC. Will guaiac stools. Will continue to hydrate. Hold off on renal biopsy for now. Continue protonix. Replace Magnesium. Recheck Hgb 2 hours after blood transfusion completed.
[2018-07-03] MEDS: Mag Sulf 1 gm/100 ml Premix 100 ML IV.SIG SCH ×2 (12:09→15:36)
[2018-07-03 16:47] LABS: Baso % (Auto) 0.4 % (0.0-2.0); Hematocrit 27.6 % (39.0-51.0); Hemoglobin 9.7 gm/dL (13.0-17.0); Lymph # (Auto) 0.1 th/mm3 (1.0-4.8); Lymph % (Auto) 0.7 % (9.0-44.0); Mean Corpuscular Hemoglobin 31.4 pg (27.0-34.0); Mean Corpuscular Volume 89.6 fL (80.0-100.0); Mono # (Auto) 0.3 th/mm3 (0.0-0.9); Mono % (Auto) 2.8 % (0.0-8.0); Neut # (Auto) 8.9 th/mm3 (1.8-7.7); Neut % (Auto) 96.1 % (16.0-70.0); Platelet Count 331 th/mm3 (150-450); Red Blood Count 3.08 mil/mm3 (4.50-5.90); Red Cell Distribution Width 19.3 % (11.6-17.2); White Blood Count 9.3 th/mm3 (4.0-11.0)
[2018-07-04 04:51] LABS: Baso # (Auto) 0.1 th/mm3 (0.0-0.2); Baso % (Auto) 0.9 % (0.0-2.0); Eos % (Auto) 0.3 % (0.0-4.0); Hemoglobin 8.8 gm/dL (13.0-17.0); Lymph # (Auto) 0.1 th/mm3 (1.0-4.8); Lymph % (Auto) 1.3 % (9.0-44.0); Mean Corpuscular HGB Conc 32.5 % (32.0-36.0); Mean Corpuscular Hemoglobin 29.8 pg (27.0-34.0); Mean Corpuscular Volume 91.7 fL (80.0-100.0); Mean Platelet Volume 7.2 fL (7.0-11.0); Mono # (Auto) 0.3 th/mm3 (0.0-0.9); Mono % (Auto) 4.5 % (0.0-8.0); Neut # (Auto) 6.7 th/mm3 (1.8-7.7); Platelet Count 336 th/mm3 (150-450); Red Blood Count 2.95 mil/mm3 (4.50-5.90); Red Cell Distribution Width 19.8 % (11.6-17.2); White Blood Count 7.2 th/mm3 (4.0-11.0)
[2018-07-04 05:04] LABS: Alanine Aminotransferase 23 U/L (12-78); Albumin 2.9 g/dL (3.4-5.0); Anion Gap 9 meq/L (5-15); Aspartate Aminotransferase 15 U/L (15-37); Blood Urea Nitrogen 13 mg/dL (7-18); Calcium 7.9 mg/dL (8.5-10.1); Carbon Dioxide 21.3 meq/L (21.0-32.0); Chloride 112 meq/L (98-107); Glomerular Filtration Rate 45 mL/min (>89); Glucose,Random 92 mg/dL (74-106); Magnesium 1.6 mg/dL (1.5-2.5); Sodium 142 meq/L (136-145)
[2018-07-04 05:07] LABS: Alkaline Phosphatase 53 U/L (45-117); Total Protein 5.8 g/dL (6.4-8.2)
[2018-07-04] MEDS: Potassium Phosphate 500 MG Soluble Tablet PO SCH (09:04)
[2018-07-04] MEDS: predniSONE 10 MG Tablet PO SCH (09:05)
[2018-07-04] MEDS: Labetalol 200 MG Tablet PO SCH (09:06)
[2018-07-04] MEDS: Magnesium Oxide 400 MG Tablet PO SCH (09:06)
[2018-07-04] MEDS: Sodium Chloride 0.9% 2 ML Flush BID IV.FLUSH SCH (09:07)
[2018-07-04] MEDS ORDERED: Magnesium Sulfate Inj 2 GM in Sodium Chlor 0.9% Inj 96 ML IV.SIG ONE (09:13)
[2018-07-04] MEDS ORDERED: Potassium Phosphate Inj 15 MMOL in Sodium Chlor 0.9% Inj 150 ML IV.SIG ONE (09:15)
[2018-07-04] MEDS: Sod Chloride 0.9% Inj 1,000 ML IV.CONT SCH ×2 (10:31→17:24)
--- NOTE | 2018-07-04 10:57 | P.PNTS ---
Subjective Interval history: No new c/o. Feels better. Physical Exam Vital signs: Vital Signs 07/03/18 11:00 07/03/18 12:00 07/03/18 12:06 Temperature 98.6 F 98.6 F Pulse Rate 81 78 76 Respiratory Rate 20 20 Blood Pressure 148/78 H 120/65 Pulse Oximetry 97 07/03/18 12:21 07/03/18 12:30 07/03/18 13:00 Temperature 98.5 F 98.6 F Pulse Rate 78 76 80 Respiratory Rate 20 18 Blood Pressure 121/65 122/66 Pulse Oximetry 07/03/18 14:00 07/03/18 15:00 07/03/18 16:00 Temperature 98.4 F Pulse Rate 77 89 84 Respiratory Rate 20 Blood Pressure 121/65 Pulse Oximetry 98 07/03/18 17:00 07/03/18 18:00 07/03/18 19:00 Temperature 98.6 F Pulse Rate 82 86 74 Respiratory Rate 18 Blood Pressure 139/87 Pulse Oximetry 80 L 07/03/18 20:00 07/03/18 21:00 07/03/18 22:00 Temperature Pulse Rate 80 77 75 Respiratory Rate Blood Pressure Pulse Oximetry 07/03/18 23:00 07/04/18 00:00 07/04/18 00:19 Temperature 99.2 F Pulse Rate 76 74 78 Respiratory Rate 20 Blood Pressure 119/71 Pulse Oximetry 80 L 07/04/18 01:00 07/04/18 02:00 07/04/18 03:00 Temperature Pulse Rate 75 77 72 Respiratory Rate Blood Pressure Pulse Oximetry 07/04/18 04:00 07/04/18 04:01 07/04/18 05:00 Temperature 98.7 F Pulse Rate 72 75 69 Respiratory Rate 20 Blood Pressure 144/77 H Pulse Oximetry 80 L 07/04/18 06:00 07/04/18 07:00 07/04/18 08:00 Temperature 98.0 F Pulse Rate 73 76 88 Respiratory Rate 18 Blood Pressure 150/93 H Pulse Oximetry 100 07/04/18 09:00 07/04/18 10:00 Temperature Pulse Rate 83 81 Respiratory Rate Blood Pressure Pulse Oximetry Intake & Output 07/03/18 07/04/18 07/04/18 18:59 06:59 18:59 Intake Total 3200 / 3200 1720 / 1720 Output Total 2175 / 2175 1200 / 1200 Balance 1025 / 1025 520 / 520 Weight 78.5 kg Intake: IV 1200 / 1200 1000 / 1000 NS Inj 1,000 ML @ 84 mls/hr IV. 1000 / 1000 1000 / 1000 CONT .[id number] [facility] Rx#:[id number] Magnesium Sulfate 1 gm/D5W 100 200 / 200 ml Premix 100 ML @ 100 mls/hr IV.SIG Q1H [facility] Rx#:[id number] Oral 1999 / 1999 720 / 720 Intake (Blood Product) Amt 0 / 0 Rbc As-3 Leukoreduced Unit 0 / 0 [id number] Rbc As-3 Leukoreduced Unit 0 / 0 [id number] Output: Urine 2175 / 2175 1200 / 1200 Other: # Bowel Movements 1 - Constitutional no acute distress - Routine HEENT Exam Head: Present: normocephalic, atraumatic Eye: Present: EOMI ENT: Present: mucous membranes moist - Routine Neck Exam Present: supple, full ROM - Routine Respiratory Exam Present: CTA bilaterally - Routine Cardiovascular Exam Present: RRR, S1, S2 - Routine Abdominal Exam Present: soft, normoactive bowel sounds - Routine Extremities Exam Present: pulses intact Comments: Calves soft, NT B. No palpable cords. - Routine Skin Exam Present: intact - Routine Neurological Exam Present: alert, oriented X3 - Detailed Neurological Exam: Coma Scale Verbal Response: Oriented - Routine Psychiatric Exam Present: normal affect, normal thought process Results - Labs CBC & Chem 7: 07/04/18 04:10 07/04/18 04:10 Laboratory Results - last 24 hr 07/03/18 07/03/18 07/03/18 04:46 07:52 16:30 WBC 9.3 D RBC 3.08 L Hgb 9.7 L D Hct 27.6 L MCV 89.6 MCH 31.4 MCHC 35.0 RDW 19.3 H Plt Count 331 MPV 7.0 Neut % (Auto) 96.1 H Lymph % (Auto) 0.7 L Hood % (Auto) 2.8 Eos % (Auto) 0.0 Baso % (Auto) 0.4 Neut # (Auto) 8.9 H Lymph # (Auto) 0.1 L Hood # (Auto) 0.3 Eos # (Auto) 0.0 Baso # (Auto) 0.0 WBC Differential . Differential Comment Auto diff final Sodium Potassium Chloride Carbon Dioxide Anion Gap BUN Creatinine Estimated GFR Random Glucose Calcium Phosphorus Magnesium Total Bilirubin AST ALT Alkaline Phosphatase Total Protein Albumin Tacrolimus 9.8 MTS Gel Crossmatch See Detail 07/04/18 07/04/18 04:10 04:10 WBC 7.2 RBC 2.95 L Hgb 8.8 L Hct 27.0 L MCV 91.7 MCH 29.8 MCHC 32.5 RDW 19.8 H Plt Count 336 MPV 7.2 Neut % (Auto) 93.0 H Lymph % (Auto) 1.3 L Hood % (Auto) 4.5 Eos % (Auto) 0.3 Baso % (Auto) 0.9 Neut # (Auto) 6.7 Lymph # (Auto) 0.1 L Hood # (Auto) 0.3 Eos # (Auto) 0.0 Baso # (Auto) 0.1 WBC Differential . Differential Comment Auto diff final Sodium 142 Potassium 4.0 Chloride 112 H Carbon Dioxide 21.3 Anion Gap 9 BUN 13 Creatinine 1.96 H Estimated GFR 45 L Random Glucose 92 Calcium 7.9 L Phosphorus 2.0 L Magnesium 1.6 Total Bilirubin 0.3 AST 15 ALT 23 Alkaline Phosphatase 53 Total Protein 5.8 L Albumin 2.9 L Tacrolimus MTS Gel Crossmatch Microbiology 07/03/18 17:50 Stool Stool Occult Blood (REGINALDO) - Final Hemoccult negative Assessment and Plan - Assessment (1) Kidney transplant recipient Code(s): Z94.0 - Kidney transplant status Status: Acute - Plan Patient s/p DDKT on . Admitted with elevated creatinine. creatinine has improved. Hemoccult checked and negative. Hgb improved with blood transfusion. slight decrease (? hemodilution). Will check Hgb at noon. Replete lytes. Okay with discharge home later today, if Hgb stable; after lytes repleted.
--- NOTE | 2018-07-04 11:38 | P.PNNP ---
Subjective Interval history: Patient is alert, no SOB, eating well, no abd. pain. Physical Exam Vital signs: Vital Signs 07/03/18 12:00 07/03/18 12:06 07/03/18 12:21 Temperature 98.6 F 98.5 F Pulse Rate 78 76 78 Respiratory Rate 20 20 Blood Pressure 120/65 121/65 Pulse Oximetry 07/03/18 12:30 07/03/18 13:00 07/03/18 14:00 Temperature 98.6 F Pulse Rate 76 80 77 Respiratory Rate 18 Blood Pressure 122/66 Pulse Oximetry 07/03/18 15:00 07/03/18 16:00 07/03/18 17:00 Temperature 98.4 F Pulse Rate 89 84 82 Respiratory Rate 20 Blood Pressure 121/65 Pulse Oximetry 98 07/03/18 18:00 07/03/18 19:00 07/03/18 20:00 Temperature 98.6 F Pulse Rate 86 74 80 Respiratory Rate 18 Blood Pressure 139/87 Pulse Oximetry 80 L 07/03/18 21:00 07/03/18 22:00 07/03/18 23:00 Temperature Pulse Rate 77 75 76 Respiratory Rate Blood Pressure Pulse Oximetry 07/04/18 00:00 07/04/18 00:19 07/04/18 01:00 Temperature 99.2 F Pulse Rate 74 78 75 Respiratory Rate 20 Blood Pressure 119/71 Pulse Oximetry 80 L 07/04/18 02:00 07/04/18 03:00 07/04/18 04:00 Temperature Pulse Rate 77 72 72 Respiratory Rate Blood Pressure Pulse Oximetry 07/04/18 04:01 07/04/18 05:00 07/04/18 06:00 Temperature 98.7 F Pulse Rate 75 69 73 Respiratory Rate 20 Blood Pressure 144/77 H Pulse Oximetry 80 L 07/04/18 07:00 07/04/18 08:00 07/04/18 09:00 Temperature 98.0 F Pulse Rate 76 88 83 Respiratory Rate 18 Blood Pressure 150/93 H Pulse Oximetry 100 07/04/18 10:00 Temperature Pulse Rate 81 Respiratory Rate Blood Pressure Pulse Oximetry Intake & Output 07/03/18 07/04/18 07/04/18 18:59 06:59 18:59 Intake Total 3200 / 3200 1720 / 1720 Output Total 2175 / 2175 1200 / 1200 Balance 1025 / 1025 520 / 520 Weight 78.5 kg Intake: IV 1200 / 1200 1000 / 1000 NS Inj 1,000 ML @ 84 mls/hr IV. 1000 / 1000 1000 / 1000 CONT .[id number] [facility] Rx#:[id number] Magnesium Sulfate 1 gm/D5W 100 200 / 200 ml Premix 100 ML @ 100 mls/hr IV.SIG Q1H [facility] Rx#:[id number] Oral 2000 / 2000 720 / 720 Intake (Blood Product) Amt 0 / 0 Rbc As-3 Leukoreduced Unit 0 / 0 [id number] Rbc As-3 Leukoreduced Unit 0 / 0 [id number] Output: Urine 2175 / 2175 1200 / 1200 Other: # Bowel Movements 1 Narrative: GENERAL: Well-nourished, well-developed patient. SKIN: Warm and dry. HEAD: Normocephalic. EYES: No scleral icterus. No injection or drainage. NECK: Supple, trachea midline. No JVD or lymphadenopathy. CARDIOVASCULAR: Regular rate and rhythm without murmurs, gallops, or rubs. RESPIRATORY: Breath sounds equal bilaterally. No accessory muscle use. GASTROINTESTINAL: Abdomen soft, mildly tender over the incision which is healing well, nondistended. EXTREMITIES: No edema NEUROLOGICAL: Awake, alert, and oriented x 3. Non-focal. Assessment and Plan - Assessment (1) Acute renal failure Code(s): N17.9 - Acute kidney failure, unspecified Status: Acute Qualifiers: Acute renal failure type: unspecified Qualified Code(s): N17.9 - Acute kidney failure, unspecified Plan: Likely dehydration and not rejection (2) Hypertension Code(s): I10 - Essential (primary) hypertension Status: Chronic Qualifiers: Hypertension type: essential hypertension Qualified Code(s): I10 - Essential (primary) hypertension (3) Kidney transplant recipient Code(s): Z94.0 - Kidney transplant status Status: Acute - Plan Patient has good urine output he has been maintained on tacrolimus the dose has been increased to 8 mg twice a day and continue with CellCept 1000 mg twice daily, prednisone 10 mg daily, Follow CBC CMP in the morning there is a possibility of kidney biopsy if kidney failure does not resolve transplant kidney ultrasound noted. Follow him closely and avoid nephrotoxic agent Tacrolimus level was 9.8. Repeat Hgb. is 8.8, one again will be done at noon. Creatinine is better at 1.9. If Hgb. stable, possible discharge.
[2018-07-04 12:59] LABS: Baso % (Auto) 0.4 % (0.0-2.0); Eos % (Auto) 0.4 % (0.0-4.0); Hematocrit 27.9 % (39.0-51.0); Hemoglobin 9.5 gm/dL (13.0-17.0); Lymph # (Auto) 0.1 th/mm3 (1.0-4.8); Lymph % (Auto) 1.1 % (9.0-44.0); Mean Corpuscular Hemoglobin 31.2 pg (27.0-34.0); Mean Corpuscular Volume 91.7 fL (80.0-100.0); Mono # (Auto) 0.4 th/mm3 (0.0-0.9); Mono % (Auto) 4.9 % (0.0-8.0); Neut # (Auto) 7.8 th/mm3 (1.8-7.7); Neut % (Auto) 93.2 % (16.0-70.0); Platelet Count 326 th/mm3 (150-450); Red Blood Count 3.04 mil/mm3 (4.50-5.90); White Blood Count 8.3 th/mm3 (4.0-11.0)
--- NOTE | 2018-07-04 16:08 | P.DS ---
Date of admission: 07/02/18 15:08 Primary care physician: UNKNOWN Attending physician on discharge: Richmond Gan Anticipated date of discharge: 07/04/18 Brief History from admission: Patient is a 43-year-old -[place] male with history of kidney transplant on 06/18/2018 and came in for follow-up visit noted to have elevated creatinine of 2.3 baseline creatinine was 1.8 and gradually increased to 2.1 and today 2.3, patient remains nonoliguric, he said he had some pain around his incision and there was a area which concerned him below the incision. However he did not notice any changes in his urine output, he said he has to push himself to drink water but he is doing about 3 to 4 L of water a day, he denies any dysuria or burning or nausea or vomiting. Patient update on day of discharge: stable and improved DS: Diagnosis - Discharge Diagnosis (1) Acute renal failure Status: Acute (2) Hypertension Status: Chronic (3) Kidney transplant recipient Status: Acute DS: Summary Hospital Course: Patient was hydrated with NS at 100 cc/hr, hemoglobin dropped he was given 2 units PRBC and he was instructed to drink more water, biopsy of kidney was cancelled as he improved with hydration and his creatinine was 1.9 at time of discharge from 2.3. His Tacrolimus dose was 8 mg bid. - Time Spent with Patient Total time spent providing and/or coordinating discharge services: Less than 30 minutes Exam Vital signs: Vital Signs 07/03/18 16:00 07/03/18 17:00 07/03/18 18:00 Temperature Pulse Rate 84 82 86 Respiratory Rate Blood Pressure Pulse Oximetry 07/03/18 19:00 07/03/18 20:00 07/03/18 21:00 Temperature 98.6 F Pulse Rate 74 80 77 Respiratory Rate 18 Blood Pressure 139/87 Pulse Oximetry 80 L 07/03/18 22:00 07/03/18 23:00 07/04/18 00:00 Temperature Pulse Rate 75 76 74 Respiratory Rate Blood Pressure Pulse Oximetry 07/04/18 00:19 07/04/18 01:00 07/04/18 02:00 Temperature 99.2 F Pulse Rate 78 75 77 Respiratory Rate 20 Blood Pressure 119/71 Pulse Oximetry 80 L 07/04/18 03:00 07/04/18 04:00 07/04/18 04:01 Temperature 98.7 F Pulse Rate 72 72 75 Respiratory Rate 20 Blood Pressure 144/77 H Pulse Oximetry 80 L 07/04/18 05:00 07/04/18 06:00 07/04/18 07:00 Temperature 98.0 F Pulse Rate 69 73 76 Respiratory Rate 18 Blood Pressure 150/93 H Pulse Oximetry 100 07/04/18 08:00 07/04/18 09:00 07/04/18 10:00 Temperature Pulse Rate 88 83 81 Respiratory Rate Blood Pressure Pulse Oximetry 07/04/18 11:00 07/04/18 12:00 07/04/18 13:00 Temperature 98.4 F Pulse Rate 78 88 76 Respiratory Rate 18 Blood Pressure 124/67 Pulse Oximetry 100 07/04/18 14:00 Temperature Pulse Rate 75 Respiratory Rate Blood Pressure Pulse Oximetry Intake & Output 07/03/18 07/04/18 07/04/18 18:59 06:59 18:59 Intake Total 3200 / 3200 1720 / 1720 255 / 255 Output Total 2175 / 2175 1200 / 1200 Balance 1025 / 1025 520 / 520 255 / 255 Weight 78.5 kg Intake: IV 1200 / 1200 1000 / 1000 255 / 255 NS Inj 1,000 ML @ 84 mls/hr IV. 1000 / 1000 1000 / 1000 CONT .[id number] [facility] Rx#:[id number] Magnesium Sulfate 1 gm/D5W 100 200 / 200 ml Premix 100 ML @ 100 mls/hr IV.SIG Q1H [facility] Rx#:[id number] Magnesium Sulfate Inj 2 GM In 100 / 100 NS Inj 96 ML @ 50 mls/hr IV.SIG ONCE ONE Rx#:[id number] Potassium Phosphate Inj 15 MMOL 155 / 155 In NS Inj 150 ML @ 38.75 mls/ hr IV.SIG ONCE ONE Rx#:[id number] Oral 1999 / 1999 720 / 720 Intake (Blood Product) Amt 0 / 0 Rbc As-3 Leukoreduced Unit 0 / 0 [id number] Rbc As-3 Leukoreduced Unit 0 / 0 [id number] Output: Urine 2175 / 2175 1200 / 1200 Other: Date of Last Bowel Movement 07/04/18 # Bowel Movements 1 Narrative: GENERAL: Well-nourished, well-developed patient. SKIN: Warm and dry. HEAD: Normocephalic. EYES: No scleral icterus. No injection or drainage. NECK: Supple, trachea midline. No JVD or lymphadenopathy. CARDIOVASCULAR: Regular rate and rhythm without murmurs, gallops, or rubs. RESPIRATORY: Breath sounds equal bilaterally. No accessory muscle use. GASTROINTESTINAL: Abdomen soft, mildly tender over the incision which is healing well, nondistended. EXTREMITIES: No edema NEUROLOGICAL: Awake, alert, and oriented x 3. Non-focal. Results Procedures completed during hospitalization: kidney Transplant Labs on day of discharge: Labs from last 24 hours 07/04/18 07/04/18 07/04/18 12:28 04:10 04:10 WBC 8.3 7.2 RBC 3.04 L 2.95 L Hgb 9.5 L 8.8 L Hct 27.9 L 27.0 L MCV 91.7 91.7 MCH 31.2 29.8 MCHC 34.0 32.5 RDW 20.0 H 19.8 H Plt Count 326 336 MPV 7.0 7.2 Neut % (Auto) 93.2 H 93.0 H Lymph % (Auto) 1.1 L 1.3 L Bland % (Auto) 4.9 4.5 Eos % (Auto) 0.4 0.3 Baso % (Auto) 0.4 0.9 Neut # (Auto) 7.8 H 6.7 Lymph # (Auto) 0.1 L 0.1 L Bland # (Auto) 0.4 0.3 Eos # (Auto) 0.0 0.0 Baso # (Auto) 0.0 0.1 WBC Differential . . Differential Comment Auto diff final Auto diff final Sodium 142 Potassium 4.0 Chloride 112 H Carbon Dioxide 21.3 Anion Gap 9 BUN 13 Creatinine 1.96 H Estimated GFR 45 L Random Glucose 92 Calcium 7.9 L Phosphorus 2.0 L Magnesium 1.6 Total Bilirubin 0.3 AST 15 ALT 23 Alkaline Phosphatase 53 Total Protein 5.8 L Albumin 2.9 L 07/03/18 16:30 WBC 9.3 D RBC 3.08 L Hgb 9.7 L D Hct 27.6 L MCV 89.6 MCH 31.4 MCHC 35.0 RDW 19.3 H Plt Count 331 MPV 7.0 Neut % (Auto) 96.1 H Lymph % (Auto) 0.7 L Bland % (Auto) 2.8 Eos % (Auto) 0.0 Baso % (Auto) 0.4 Neut # (Auto) 8.9 H Lymph # (Auto) 0.1 L Bland # (Auto) 0.3 Eos # (Auto) 0.0 Baso # (Auto) 0.0 WBC Differential . Differential Comment Auto diff final Sodium Potassium Chloride Carbon Dioxide Anion Gap BUN Creatinine Estimated GFR Random Glucose Calcium Phosphorus Magnesium Total Bilirubin AST ALT Alkaline Phosphatase Total Protein Albumin - Impressions ITS Impressions Renal Ultrasound 07/02/18 15:11 CONCLUSION: Within normal limits. Discharge Plan - Discharge Disposition Patient Disposition: Discharge Home - Discharge Condition Condition: Good - Discharge Order Discharge Orders: Discharge Order (Routine); Ordered 07/04/18 Ordered By: Richmond Gan - Discharge Details Anticipated Discharge Date: 07/04/18 Discharge Comment: Follow up at Transplant center Friday - Physicians Team Primary Care Provider: UNKNOWN, Attending Provider: Richmond Gan - Rxs /Orders / Referrals /Forms Prescriptions: New pantoprazole 40 mg Tablet,Delayed Release (Dr/Ec) 40 mg PO DAILY RF: 0 tacrolimus [Prograf] 1 mg Capsule 3 mg PO BID@0600,1800 RF: 0 tacrolimus [Prograf] 5 mg Capsule 5 mg PO BID@0600,1800 RF: 0 Continue B complex-vitamin C-folic acid [Dialyvite] 100-1 mg Tablet 1 tab PO DAILY calcitriol 0.5 mcg Capsule 0.5 mcg PO DAILY calcium carbonate 200 mg calcium (500 mg) Tablet,Chewable 500 mg CHEW BID@09,16 Qty: 60 RF: 5 cinacalcet [Sensipar] 60 mg Tablet 120 mg PO DAILY docusate sodium [DOK] 100 mg Capsule 100 mg PO BID Qty: 30 RF: 0 labetalol 200 mg Tablet 200 mg PO BID Qty: 60 RF: 2 nystatin 100,000 unit/mL Suspension 5 ml SWISH-SWAL QID RF: 0 oxycodone-acetaminophen 5-325 mg Tablet 1 tab PO Q4H PRN (Reason: ABDOMINAL PAIN 1-12/25) Qty: 30 RF: 0 potassium phosphate, monobasic [K-Phos Original] 500 mg Tablet,Soluble 500 mg PO BID Qty: 60 RF: 5 sulfamethoxazole-trimethoprim 800-160 mg Tablet 1 tab PO MoWeFr Qty: 90 RF: 1 tamsulosin 0.4 mg Capsule 0.4 mg PO DAILY Qty: 30 RF: 0 valganciclovir [Valcyte] 450 mg Tablet 900 mg PO DAILY RF: 0 Discontinued magnesium oxide 400 mg (241.3 mg magnesium) Tablet 400 mg PO BID Qty: 60 RF: 5 rosuvastatin [Crestor] 10 mg Tablet 10 mg PO DAILY tacrolimus [Prograf] 5 mg Capsule 5 mg PO BID@0600,1800 RF: 0 No Action mycophenolate mofetil [CellCept] 500 mg Tablet 1,000 mg PO BID@0600,1800 RF: 0 Referrals: UNKNOWN, [Primary Care Provider] - See Instructions
--- NOTE | 2018-07-06 09:46 | P.DIET ---
Nutritional Evaluation Type of nutrition evaluation: initial Screening comments: Late entry, patient was seen on Friday, July 03, 2018 Subjective Subjective Comments: Patient states he is trying to drink adequate water but it's hard. States he can 't eat much because he is full from the water. Objective - Diagnosis ESRD - Objective Body Mass Index: 22.2 % IBW: 90 Body Weight Used for Calculations: Actual (78kg) Energy Needs - Lower Range (kCal/kg): 28 Energy Needs - Upper Range (kCal/kg): 33 Lower Limit kCal/kg (kCals): 2,184 Upper Limit kCal/kg (kCals): 2,574 Lower Limit Protein Factor (Grams per Kg): 1.2 Upper Limit Protein Factor (Grams per Kg): 1.4 Lower Protein Needs (Protein): 94 Upper Protein Needs (Protein): 109 Estimated Fluid Needs (ml): 2,000 (minimum) Dietitian Reviewed in Medical Record: Current diet, Curent medications, Intake & Output, Labs Diet Order: 2 gm Na Objective Comments: Labs of note: Cr 2.13, Phosphorus 2.3, eGFR 41 Assessment Assessment: 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 Pt's kidney transplant surgery was June 18, 2018. Pt's labs are improving with adequate hydration, renal biopsy is currently on hold, US normal. Reviewed the importance of drinking at least 2-3 liters of water/day. Pt agrees to do it. Reviewed diet guidelines after transplant, answered questions. Pt will be followed in the outpatient clinic after discharge.
== END 2018-07-04 17:45 | disposition home or self-care (01) ==
LOC: HCPC 13:01 → INTOOBSV 15:08 → OBSVTOIN 15:08
PROVIDERS: ADMIT Internal Medicine Nephrology; ATTEND Internal Medicine Nephrology